=== PATIENT | male | born 1960 | race Caucasian/White ===

== ENCOUNTER 2022-08-10 08:03 | Day surgery (SDC) | payer OTHER, SELFPAY ==
[2022-08-10] VITALS (8 sets, daily range): BP systolic 80–111; BP diastolic 61–78; PULSE 60–85; RESP 16; TEMP 36.5–36.9; O2SAT 94–99; BMI 25.2
[2022-08-10] MEDS: Lactated Ringers 1,000 ML 15 ML IV (08:34)
[2022-08-10 08:55] LABS: Bedside Glucose 262 mg/dL (74-106)
--- NOTE | 2022-08-10 09:21 | PCM.HP.BLA ---
History and Physical Date of Admission: 08/10/22 Intake Vital Signs ? 05/19/2113:06 06/29/2212:48 Height 5 ft 8 in 5 ft 7 in Weight: ? 165 lb 8 oz BMI ? 25.9 BP ? 115/64 Blood Pressure Location ? Rt brachial Position ? Sitting Respiration ? 18 Pulse ? 110 H Pulse Source ? NIBP Temp ? 97.2 F L Temp Source ? Temporal Pulse Oximetry (%) ? 95 Oxygen Delivery Method ? 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 Is patient in pain?: No Allergies No Known Allergies Allergy (Verified 06/29/22 12:48) Medications B-complex with vitamin C (Super B Complex-Vitamin C tablet) 1 tab PO DAILY 05/19/21 [History Confirmed 06/29/22] apple cider vinegar 600 mg capsule mg PO 05/19/21 [History Confirmed 06/29/22] ascorbic acid (vitamin C) 250 mg tablet 250 mg PO DAILY 05/19/21 [History Confirmed 06/29/22] cholecalciferol (vitamin D3) 25 mcg (1,000 unit) capsule 25 mcg PO DAILY 05/19/21 [History Confirmed 05/19/21] garlic 500 mg capsule 500 mg PO DAILY 05/19/21 [History Confirmed 06/29/22] lisinopril 20 mg tablet 20 mg PO DAILY 05/19/21 [History Confirmed 06/29/22] lovastatin 20 mg tablet 20 mg PO DAILY 05/19/21 [History Confirmed 05/19/21] metformin 1,000 mg tablet 1,000 mg PO BID 05/19/21 [History Confirmed 06/29/22] vitamin E 200 unit capsule 200 unit PO DAILY 05/19/21 [History Confirmed 06/29/22] atorvastatin 80 mg tablet 80 mg PO QHS 06/29/22 [History Confirmed 06/29/22] krill oil 500 mg capsule 500 mg PO QDAY 06/29/22 [History Confirmed 06/29/22] pioglitazone 45 mg tablet 45 mg PO DAILY 06/29/22 [History Confirmed 06/29/22] PFSH Medical History?(Updated 06/29/22 @ 12:36 by Dagmar Maxwell) Carotid stenosis Diabetes High cholesterol HTN (hypertension) Surgical History?(Updated 06/29/22 @ 12:39 by Dagmar Maxwell) History of colonoscopy (~2012) History of right-sided carotid endarterectomy Family History?(Updated 06/29/22 @ 12:47 by Dagmar Maxwell) Mother Colon cancerFather Diabetes Hypertension Cancer ?? ? renal Social History? Smoking Status:? Former smoker alcohol intake:? current alcohol intake frequency: a few times a week HPI HPI HPI: Patient is a 62 male here for colonoscopy.? Patient has last colonoscopy 2012 was found have a polyp.? He was recommended to repeat in 5 years but has not been able to have it redone.? Patient denies any abdominal pain or blood in the stool. Exam Const General: cooperative Orientation: alert and oriented x3 HENMT Head: normal to inspection Neck Neck: normal visual inspection and full ROM Chest Chest palpation & inspection: normal inspection of the chest Resp Effort & Inspection: normal respiratory effort Auscultation: clear to auscultation bilaterally Cardio Rate: regular rate Rhythm: regular rhythm GI Inspection: non-distended Palpation: soft and nontender Skin General: no rashes or lesions noted Neuro General: patient alert and patient oriented x3 Extrem General: full ROM Psych Appearance: grossly normal Mental Status: mental status grossly normal Assessment and Plan Assessment and Plan (1) History of colon polyps: ?Status:?Acute ?Plan: Patient has a history of polyps and is due for surveillance colonoscopy.? I explained endoscopy in detail to the patient.? I explained the risks including but not limited to stroke or heart attack with anesthesia, perforation of the GI tract, bleeding, infection.? I explained that any of these could necessitate further emergency surgery.? The patient understands and all questions were answered sufficiently.? The patient wishes to proceed with procedure. Neil Barbour MD Pager: [facility] [address] [place] [address], [address] [place] [address] Office: I have re-examined the patient. There are no clinical changes since date of exam.
--- NOTE | 2022-08-10 09:49 | OP.CCLET_ITS ---
08/10/2022 Marybel Finch Re : Colonoscopy procedure for Edil Navarro Dear Stef This procedure was performed on Wednesday, August 10, 2022. My impressions and recommendations are as follows: Impressions : - The entire examined colon is normal on direct and retroflexion views. - No specimens collected. Recommendations : - Discharge patient to home. - Resume previous diet. - Continue present medications. - Repeat colonoscopy in 10 years for screening purposes. My findings are described in the full procedure note, which is enclosed. If I can be of further assistance, please feel free to contact me at Doctor phone number(s): , Work: . Sincerely, Neil Barbour MD 08/10/2022 9:49:06 AM This report has been signed electronically.
--- NOTE | 2022-08-10 09:49 | OP.COLON_ITS ---
Patient Name: Edil Navarro Procedure Date: 08/10/2022 9:29 AM Date of : 1960 Age: 62 Procedure: Colonoscopy Indications: High risk colon cancer surveillance: Personal history of colonic polyps Providers: Neil Barbour MD Referring MD: Marybel Finch Medicines: Monitored Anesthesia Care Patient Profile: This is a 62 year old male. This is a 62 year old male. Refer to note in patient chart for documentation of history and physical. Last Colonoscopy: several years ago. Complications: No immediate complications. Procedure: Pre-Anesthesia Assessment: - Prior to the procedure, a History and Physical was performed, and patient medications and allergies were reviewed. The patient's tolerance of previous anesthesia was also reviewed. The risks and benefits of the procedure and the sedation options and risks were discussed with the patient. All questions were answered, and informed consent was obtained. Prior Anticoagulants: The patient has taken no previous anticoagulant or antiplatelet agents. After reviewing the risks and benefits, the patient was deemed in satisfactory condition to undergo the procedure. After I obtained informed consent, the scope was passed under direct vision. Throughout the procedure, the patient's blood pressure, pulse, and oxygen saturations were monitored continuously. The pediatric colonoscope was introduced through the anus and advanced to the cecum, identified by appendiceal orifice and ileocecal valve. The colonoscopy was performed without difficulty. The patient tolerated the procedure well. The quality of the bowel preparation was good. Scope In: 9:35:39 AM Scope Withdrawal Time 0 hours 6 minutes 10 seconds Scope Out: 9:45:39 AM Total Procedure Duration Time 0 hours 10 minutes 0 seconds Findings: The entire examined colon appeared normal on direct and retroflexion views. Impression: - The entire examined colon is normal on direct and retroflexion views. - No specimens collected. Recommendation: - Discharge patient to home. - Resume previous diet. - Continue present medications. - Repeat colonoscopy in 10 years for screening purposes. Procedure Code(s): --- Professional --- 00996, Colonoscopy, flexible; diagnostic, including collection of specimen(s) by brushing or washing, when performed (separate procedure) Diagnosis Code(s): --- Professional --- Z86.010, Personal history of colonic polyps CPT copyright 2017 [employer]. All rights reserved. The codes documented in this report are preliminary and upon supervisor liquefaction review may be revised to meet current compliance requirements. Neil Barbour MD 08/10/2022 9:49:06 AM This report has been signed electronically. Number of Addenda: 0 Note Initiated On: 08/10/2022 9:29 AM
== END 2022-08-10 10:42 | disposition home or self-care (01) ==
LOC: EN 08:04 → AC 08:06
PROVIDERS: PCP Nurse Practitioner Primary Care; Referring Provider Nurse Practitioner Primary Care; Visit Provider Surgery
PROC: 0DJD8ZZ Inspection of Lower Intestinal Tract, Via Natural or Artificial Opening Endoscopic (ICD-10-PCS; CPT 45378; principal; 2022-08-10 09:25)
DX: Z12.11 Encounter for screening for malignant neoplasm of colon (principal); E11.9 Type 2 diabetes mellitus without complications; I10 Essential (primary) hypertension; E78.00 Pure hypercholesterolemia, unspecified; Z79.84 Long term (current) use of oral hypoglycemic drugs; Z79.899 Other long term (current) drug therapy; Z86.010 Personal history of colon polyps; Z87.891 Personal history of nicotine dependence
CPT/HCPCS: 45378; 82962; J7120; J2405

== ENCOUNTER 2025-03-25 21:59 | Emergency (ER) | payer OTHER, SELFPAY ==
[2025-03-25 22:00] VITALS: BP 115/65; PULSE 98; RESP 18; TEMP 36.7; O2SAT 100; BMI 25.9
--- NOTE | 2025-03-25 22:30 | EKG12_ITS ---
Test Reason : DYSRHYTHMIA Blood Pressure : */* mmHG Vent. Rate : 84 BPM Atrial Rate : 84 BPM P-R Int : 174 ms QRS Dur : 90 ms QT Int : 364 ms P-R-T Axes : 48 -53 27 degrees QTcB Int : 430 ms Normal sinus rhythm Left anterior fascicular block Anterolateral infarct , age undetermined Abnormal ECG Confirmed by OCTAVIO MCRAE, ARVIN ([id number]), editor house organ SEBASTIAN PHELPS ([id number]) on 03/29/2025 6:49:39 AM Referred By: Pancho Sales Confirmed By: ARVIN CUNNINGHAM MD
--- NOTE | 2025-03-25 22:30 | CT_ITS ---
PROCEDURE: SPINE CERVICAL WITHOUT CONTRAS 03/25/2025 REASON FOR EXAM: FALL TECHNIQUE: Cervical spine CT without contrast. Coronal and Sagittal reconstruction series were provided. One or more dose reduction techniques were used (e.g., Automated exposure control, adjustment of the mA and/or kV according to patient size, use of iterative reconstruction technique COMPARISON: None FINDINGS: Vertebral body heights are within normal limits. Negative for acute fracture or traumatic subluxation. Moderate degenerative changes from C5 through T1. No paraspinal mass. Bilateral carotid artery calcifications. Lung apices are clear. CT/Spine Cervical without Contras IMPRESSION: No acute osseous abnormality. Reading Location: [facility]
--- NOTE | 2025-03-25 22:30 | CT_ITS ---
PROCEDURE: BRAIN/HEAD WITHOUT CONTRAST 03/25/2025 REASON FOR EXAM: FALL TECHNIQUE: Head CT without intravenous contrast. Coronal and Sagittal reconstruction series were provided. One or more dose reduction techniques were used (e.g., Automated exposure control, adjustment of the mA and/or kV according to patient size, use of iterative reconstruction technique. COMPARISON: None FINDINGS: No evidence of acute intracranial hemorrhage, midline shift or mass effect. No definite CT evidence of acute territorial cortical infarction. No hydrocephalus. Mild age-related atrophy. No depressed calvarial fracture. Mild bilateral maxillary mucosal thickening. CT/Brain/Head without Contrast IMPRESSION: No acute intracranial abnormality. Reading Location: [facility]
--- OUTSIDE RECORDS SUMMARY | 2025-03-25 22:40 | XMS RPT_ITS | CCD ---
Author Organization [facility] Care Team Providers Care Special Assemblies Supervisor Name Role Phone JAIMIE COLE Primary Care Physicia n [facility] Jaimie Primary Care Provider [facility] Jaimie Referring Provider [phone] Dr. Neil Barbour Attending Provider Dr. Neil Barbour Other Provider Jaimie Solitario Primary Care Unavailable Jaimie Solitario Referring Unavailable Neil Barbour Attending Unavailable Jaimie Solitario Referring Unavailable Neil Barbour Consulting Unavailable Neil Barbour Attending Unavailable Jaimie Solitario Primary Care Unavailable Jaimie Solitario Referring Unavailable Neil Barbour Attending Unavailable Jaimie Solitario Primary Care Unavailable KASSI LOZA, JAIMIE Crawford Primary Care Unava ilmarisa DUARTE MD, DR HERNANDEZ Attending Unavailab JAIMIE Cotton S Primary Care Unava ilable JAIMIE COLE Attending Unava ilable JAIMIE COLE S Primary Care Unava ilable RADHA FRANCIS DO Attending Unavailable JAIMIE COLE S Primary Care Unava ilable JAIMIE COLE Attending Unava ilable Medications Current Medications Medication Drug Class(es) Dates Sig (Normalized) Sig (Original) apple cider vinegar 600 mg oral capsule (1 source) Start: 05-19-2021 take 600 mg by mouth once daily Apple Cider Vinegar Active 600 MG PO DAILY May 19, 2021 12:00am ascorbic acid 250 mg oral tablet (1 source) Vitamin C Start: 05-19-2021 take 250 mg by mouth once daily Ascorbic Acid (Vitamin C) Active 250 MG PO DAILY May 19, 2021 12:00am atorvastatin 80 mg oral tablet (5 sources) HMG-CoA Reductase Inhibitor Start: 03-11-2025 atorvastatin 80 mg oral tablet Dose : 80 mg = 1 tab(s), Oral, qDay, # 90 tab(s), 3 Refill(s), Pharmacy: [facility], 172.5, cm, 03/11/25 15:20:00 EDT, Height, kg, 03/11/25 15:20:00 EDT, Dosing Weight Start Date: 03/11/25 Status: Ordered Quantity: 90.0 Unit: tab(s) Repeat number: 4 Start: 04-23-2023 atorvastatin 8 0 mg oral tablet Dose : 80 mg = 1 tab(s), Oral, qDay, # 90 tab(s), 3 Refill(s), Pharmacy: [facility], 173, cm, 12/13/22 9:59:00 EST, Height, kg, 12/13/22 9:59:00 EST, Dosing Weight Start Date: 04/23/23 Status: Ordered Quantity: 90.0 Unit: tab(s) Repeat number: 4 Start: 03-08-2022 atorvastatin 8 0 mg oral tablet Dose : 80 mg = 1 tab(s), Oral, qDay, # 90 tab(s), 3 Refill(s), Pharmacy: [facility], 172.5, cm, 03/08/22 8:56:00 EDT, Height Start Date: 03/08/22 Status: Ordered B-Complex With Vitamin C (Super B Complex-Vitamin C) tablet (1 source) Start: 05-19-2021 take 1 tablet by mouth once daily B-Complex With Vitamin C (Super B Complex-Vitamin C) tablet Active 1 TABLET PO DAILY May 19, 2021 12:00am cholecalciferol 0.025 mg oral capsule (1 source) Vitamin D Start: 05-19-2021 take 25 ug by mouth once daily Cholecalciferol (Vitamin D3) Active 25 MCG PO DAILY May 19, 2021 12:00am cider vinegar oral tablets (4 sources) Start: 10-22-2019 cider vinegar oral tablets 0 Refill(s) Start Date: 10/22/19 Status: Ordered Repeat number: 1 Start: 10-22-2019 cider vinegar oral tablets 0 Refill(s) Start Date: 10/22/19 Status: Ordered empagliflozin 25 mg oral tablet (4 sources) Sodium-Glucose Cotransporter 2 Inhibitor Start: 03-11-2025 End: 03-06-2026 Jardiance 25 mg oral tablet Dose : 25 mg = 1 tab(s), Oral, qAM, # 90 tab(s), 3 Refill(s), Pharmacy: [facility], 172.5, cm, 03/11/25 15:20:00 EDT, Height, kg, 03/11/25 15:20:00 EDT, Dosing Weight Start Date: 03/11/25 Stop Date: 03/06/26 Status: Ordered Quantity: 90.0 Unit: tab(s) Repeat number: 4 Start: 12-13-2022 Jardiance 25 m g oral tablet Dose : 12.5 mg = 0.5 tab(s), Oral, qAM, 0 Refill(s) Start Date: 12/13/22 Status: Ordered Repeat number: 1 Start: 08-08-2022 take 1 tablet by [facility] once daily Empagliflozin (Jardiance) 10 mg Tablet Active 10 MG PO DAILY August 08, 2022 12:00am Garlic (5 sources) Non-Standardized Food Allergenic Extract Start: 05-19-2021 take 500 mg by mouth once daily Garlic Active 500 MG PO DAILY May 19, 2021 12:00am Start: 07-02-2019 take 1 capsule by [facility] once daily garlic oral capsule Dose = 1 cap(s), Oral, Daily, 0 Refill(s) Start Date: 07/02/19 Status: Ordered Repeat number: 1 Start: 07-02-2019 take 1 capsule by [facility] once daily garlic oral capsule Dose = 1 cap(s), Oral, Daily, 0 Refill(s) Start Date: 07/02/19 Status: Ordered ibuprofen 800 mg oral tablet (4 sources) Nonsteroidal Anti-inflammatory Drug Start: 07-02-2019 take 1 tablet by mouth every eight hours ibuprofen 800 mg oral tablet TAKE ONE TABLET BY MOUTH EVERY 8 HOURS Start Date: 07/02/19 Status: Ordered Repeat number: 1 krill oil 500 mg oral capsule (1 source) Start: 06-29-2022 take 500 mg by mouth once daily Krill Oil Active 500 MG PO daily June 29, 2022 12:00am lisinopril 20 mg oral tablet (5 sources) Angiotensin Converting Enzyme Inhibitor Start: 03-11-2025 End: 03-06-2026 lisinopril 20 mg oral tablet Dose : 20 mg = 1 tab(s), Oral, qDay, TAKE 1 TABLET BY MOUTH ONCE DAILY, # 90 tab(s), 3 Refill(s), Pharmacy: [facility], 172.5, cm, 03/11/25 15:20:00 EDT, Height, kg, 03/11/25 15:20:00 EDT, Dosing Weight Start Date: 03/11/25 Stop Date: 03/06/26 Status: Ordered Quantity: 90.0 Unit: tab(s) Repeat number: 4 Start: 04-23-2023 End: 04-17-2024 lisinopril 20 mg oral tablet Dose : 20 mg = 1 tab(s), Oral, qDay, TAKE 1 TABLET BY MOUTH ONCE DAILY, # 90 tab(s), 3 Refill(s), Pharmacy: [facility], 173, cm, 12/13/22 9:59:00 EST, Height, kg, 12/13/22 9:59:00 EST, Dosing Weight Start Date: 04/23/23 Stop Date: 04/17/24 Status: Ordered Quantity: 90.0 Unit: tab(s) Repeat number: 4 Start: 05-19-2021 End: 03-03-2023 lisinopril 20 mg oral tablet Dose : 20 mg = 1 tab(s), Oral, qDay, TAKE 1 TABLET BY MOUTH ONCE DAILY, # 90 tab(s), 3 Refill(s), Pharmacy: [facility], 172.5, cm, 03/08/22 8:56:00 EDT, Height, kg, 03/08/22 8:56:00 EDT, Dosing Weight Start Date: 03/08/22 Stop Date: 03/03/23 Status: Ordered lovastatin 40 mg oral tablet (2 sources) HMG-CoA Reductase Inhibitor Start: 06-07-2022 take 1 tablet by mouth once daily lovastatin 40 mg oral tablet TAKE 1 TABLET BY MOUTH ONCE DAILY Start Date: 06/07/22 Status: Ordered Start: 05-19-2021 take 20 mg by mouth once daily Lovastatin Active 20 MG PO DAILY May 19, 2021 12:00am Octavio Red Krill Oil 300mg ora l capsule (4 sources) Start: 07-02-2019 Octavio Red Krill Oil 300mg oral capsule Dose : 300 mg = 1 cap(s), Oral, qDay, 0 Refill(s) Start Date: 07/02/19 Status: Ordered Repeat number: 1 Start: 07-02-2019 Octavio Red Krill Oil 300mg oral capsule Dose : 300 mg = 1 cap(s), Oral, qDay, 0 Refill(s) Start Date: 07/02/19 Status: Ordered metFORMIN hydrochloride 500 mg oral tablet (5 sources) Biguanide Start: 07-13-2024 End: 07-08-2025 metFORMIN 500 mg oral tablet (IR) Dose : 1,000 mg = 2 tab(s), Oral, BID, # 360 tab(s), 3 Refill(s), Pharmacy: [facility], 172.5, cm, 11/21/23 13:43:00 EST, Height, kg, 11/21/23 13:43:00 EST, Dosing Weight Start Date: 07/13/24 Stop Date: 07/08/25 Status: Ordered Quantity: 360.0 Unit: tab(s) Repeat number: 4 Start: 03-08-2022 End: 03-03-2023 metFORMIN 500 mg oral tablet (IR) Dose : 1,000 mg = 2 tab(s), Oral, BID, # 360 tab(s), 3 Refill(s), Pharmacy: [facility], 172.5, cm, 03/08/22 8:56:00 EDT, Height, kg, 03/08/22 8:56:00 EDT, Dosing Weight Start Date: 03/08/22 Stop Date: 03/03/23 Status: Ordered Start: 05-19-2021 take 1000 mg by mout h twice daily Metformin Active 1000 MG PO TWICE A DAY May 19, 2021 12:00am pioglitazone 45 mg oral tablet (5 sources) Peroxisome Proliferator Receptor alpha Agonist, Peroxisome Proliferator Receptor gamma Agonist, Thiazolidinedione Start: 04-23-2023 pioglitazone 45 mg oral tablet Dose : 45 mg = 1 tab(s), Oral, Daily, # 90 tab(s), 3 Refill(s), Pharmacy: [facility], 173, cm, 12/13/22 9:59:00 EST, Height, kg, 12/13/22 9:59:00 EST, Dosing Weight Start Date: 04/23/23 Status: Ordered Quantity: 90.0 Unit: tab(s) Repeat number: 4 Start: 03-08-2022 pioglitazone 4 5 mg oral tablet Dose : 45 mg = 1 tab(s), Oral, Daily, # 90 tab(s), 3 Refill(s), Pharmacy: [facility], 172.5, cm, 03/08/22 8:56:00 EDT, Height, kg, 03/08/22 8:56:00 EDT, Dosing Weight Start Date: 03/08/22 Status: Ordered Vitamin B Complex oral capsule (4 sources) Start: 07-02-2019 take 1 capsule by mouth once daily Vitamin B Complex oral capsule Dose = 1 cap(s), Oral, Daily, 0 Refill(s) Start Date: 07/02/19 Status: Ordered Repeat number: 1 Start: 07-02-2019 take 1 capsule by [facility] once daily Vitamin B Complex oral capsule Dose = 1 cap(s), Oral, Daily, 0 Refill(s) Start Date: 07/02/19 Status: Ordered Vitamin C 500 mg oral tablet (4 sources) Start: 07-02-2019 Vitamin C 500 mg oral tablet Dose : 500 mg = 1 tab(s), Oral, qDay, 0 Refill(s) Start Date: 07/02/19 Status: Ordered Repeat number: 1 Start: 07-02-2019 Vitamin C 500 mg oral tablet Dose : 500 mg = 1 tab(s), Oral, qDay, 0 Refill(s) Start Date: 07/02/19 Status: Ordered Vitamin D2 1000 units oral tablet (4 sources) Start: 07-02-2019 Vitamin D2 100 0 units oral tablet Dose : 1,000 unit(s) = 1 tab(s), Oral, Daily, 0 Refill(s) Start Date: 07/02/19 Status: Ordered Repeat number: 1 Start: 07-02-2019 Vitamin D2 100 0 units oral tablet Dose : 1,000 unit(s) = 1 tab(s), Oral, Daily, 0 Refill(s) Start Date: 07/02/19 Status: Ordered vitamin e 90 mg oral capsule (5 sources) Start: 05-19-2021 take 200 [IU] by mouth once daily Vitamin E Active 200 UNIT PO DAILY May 19, 2021 12:00am Start: 07-02-2019 vitamin E 100 intl units oral capsule Dose : 100 International_Unit = 1 cap(s), Oral, Daily, 0 Refill(s) Start Date: 07/02/19 Status: Ordered Repeat number: 1 Completed/Discontinued Medications Medication Drug Class(es) Dates Sig (Normalized) Sig (Original) 0.25 MG, 0.5 MG Dose 3 ML semaglutide 0.68 MG/ML Pen Injector [Ozempic] (1 source) Start: 03-11-2025 inject 0.5 mg by subcutaneous injection every week Ozempic 2 mg/3 mL (0.25 mg or 0.5 mg dose) subcutaneous solution Dose : 0.25 mg =, Subcutaneous, qWeek, rotate injection sites, # 1 EA, 3 Refill(s), Pharmacy: [facility], 172.5, cm, 03/11/25 15:20:00 EDT, Height, kg, 03/11/25 15:20:00 EDT, Dosing Weight Start Date: 03/11/25 Status: Ordered Quantity: 1.0 Unit: EA Repeat number: 4 glipiZIDE 10 mg oral tablet (1 source) Sulfonylurea Start: 05-19-2021 End: 06-29-2022 take 10 mg by mouth once daily Glipizide Discontinued 10 MG PO DAILY May 19, 2021 12:00am June 29, 2022 12:50pm [facility] Medication (2 sources) Start: 11-21-2023 [facility] Medication insulin 10units q HS, [facility], 0 Refill(s), 71 Start Date: 11/21/23 Status: Ordered Repeat number: 1 [place]-3 Fatty Acids (Fish Oil Concentrate) 1,000 mg capsule (1 source) Start: 05-19-2021 End: 06-29-2022 take 1 capsule by mouth once daily [place]-3 Fatty Acids (Fish Oil Concentrate) 1,000 mg capsule Discontinued 1000 MG PO DAILY May 19, 2021 12:00am June 29, 2022 12:49pm Problems Problem Classification Problem Date Documented Date Episodic/Chronic Administrative/social admission (1 source) Homeless 03-11-2025 Episodic Conditions associated with dizziness or vertigo (3 sources) Dizziness and giddiness; Translations: [Dizziness and giddiness] Onset: 02-18-2025 Episodic Diabetes mellitus with complications (4 sources) Hyperglycemia due to type 2 diabetes mellitus; Translations: [Type 2 diabetes mellitus with hyperglycemia] Onset: 03-11-2025 Chronic Diabetes mellitus without complication (5 sources) Diabetes mellitus; Translations: [Type 2 diabetes mellitus without complications] Onset: 02-18-2025 06-07-2022 Chronic Disorders of lipid metabolism (5 sources) Hyperlipidemia; Translations: [Hypercholesterolemia ] 06-02-2020 Chronic Essential hypertension (1 source) Hypertensive disorder; Translations: [Essential (primary) hypertension] Chronic Occlusion or stenosis of precerebral arteries (1 source) Carotid artery stenosis; Translations: [Occlusion and stenosis of unspecified carotid artery] Chronic Other aftercare (1 source) Other termination clerk (current) drug therapy; Translations: [Other custodial (current) drug therapy] Onset: 02-18-2025 Episodic Other aftercare (1 source) oil heaterman (current) use of oral hypoglycemic drugs; Translations: [oil heaterman (current) use of oral hypoglycemic drugs] Onset: 02-18-2025 Episodic Other aftercare (1 source) Encounter for therapeutic drug level monitoring; Translations: [Encounter for therapeutic drug level monitoring] Onset: 02-18-2025 Episodic Other and unspecified benign neoplasm (1 source) History of polyp of colon; Translations: [Personal history of colonic polyps] Episodic Other and unspecified benign neoplasm (1 source) Personal history of colonic polyps; Translations: [Personal history of colonic polyps] Episodic Other connective tissue disease (1 source) Recurrent falls ; Translations: [Repeated falls] Onset: 02-18-2025 Episodic Other connective tissue disease (1 source) Musculoskeletal test abnormal; Translations: [Other symptoms and signs involving the musculoskeletal system] Onset: 02-18-2025 Episodic Other connective tissue disease (2 sources) Repeated falls; Translations: [Repeated falls] Onset: 02-18-2025 Episodic Other connective tissue disease (1 source) Other symptoms and signs involving the musculoskeletal system; Translations: [Other symptoms and signs involving the musculoskeletal system] Onset: 02-18-2025 Episodic Other nervous system disorders (1 source) Ulnar neuropathy; Translations: [Lesion of ulnar nerve, unspecified upper limb] Chronic Other nervous system disorders (1 source) Abnormal gait; Translations: [Other abnormalities of gait and mobility] Onset: 02-18-2025 Episodic Other nervous system disorders (2 sources) Other abnormalities of gait and mobility; Translations: [Other abnormalities of gait and mobility] Onset: 02-18-2025 Episodic Other screening for suspected conditions (not mental disorders or infectious disease) (2 sources) Liver function tests abnormal; Translations: [Other specified abnormal findings of blood chemistry] Onset: 08-15-2022 Episodic Screening and history of mental health and substance abuse codes (1 source) Personal history of nicotine dependence; Translations: [Personal history of nicotine dependence] Onset: 02-18-2025 Episodic Superficial injury; contusion (2 sources) Abrasion of upper limb 11-21-2023 Episodic Unclassified (3 sources) Patient encounter status 12-13-2022 Unclassified (1 source) Homelessness unspecified; Translations: [Homelessness unspecified] Onset: 02-18-2025 Results Test Name Value Interpretation Reference Range [facility] 03-12-2025 U Creatinine 34.3 mg/dL Low 40.0-278.0 [facility] Comment on above: Performed By: #### M ALBR #### [address] [address] U Microalb 24.0 mg/L Normal [facility] Comment on above: Performed By: #### M ALBR #### [address] [address] U Ratio Alb/Cre 70 mg/G High 0-30 [facility] Comment on above: Performed By: #### M ALBR #### [id number] [place], [place] [address] LABORATORYOrdered By: Jennifer Winter on 03-11-2025 Albumin DL <= 20 mg/L (U) [Mass/Vol] 24.0 mg/L Invalid Interpretation Code AO ADM SS Albumin/Creatinine DL <= 20 mg/L (U) [Mass ratio] 70 mg/G High 0 - 30 mg/G AO Chemistry S Creatinine (U) [Mass/Vol] 34.3 mg/dL Low 40.0 - 278.0 mg/dL AO ADM SS .Auto Diffon 02-18-2025 Basophil, Absolute 0.1 10 3/mcL Normal 0.0-0.3 [facility] Comment on above: Performed By: #### A DIFF, MDW, ANEU, CMP, CBC, GFR #### [address] [address] Basophils/100 WBC (Bld) 0.9 % Normal 0.0-2.5 [facility] Comment on above: Performed By: #### A DIFF, MDW, ANEU, CMP, CBC, GFR #### [address] [address] Eosinophil, Absolute 0.2 10 3/mcL Normal 0.0-0.7 [facility] Comment on above: Performed By: #### A DIFF, MDW, ANEU, CMP, CBC, GFR #### [address] [address] Eosinophils/100 WBC (Bld) 2.1 % Normal 0.0-6.0 [facility] Comment on above: Performed By: #### A DIFF, MDW, ANEU, CMP, CBC, GFR #### [address] [address] Lymphocyte, Absolute 2.3 10 3/mcL Normal 0.9-4.3 [facility] Comment on above: Performed By: #### A DIFF, MDW, ANEU, CMP, CBC, GFR #### [address] [address] Lymphocytes/100 WBC (Bld) 23.3 % Normal 20.0-40.0 [facility] Comment on above: Performed By: #### A DIFF, MDW, ANEU, CMP, CBC, GFR #### [address] [address] Monocyte, Absolute 1.1 10 3/mcL Normal 0.1-1.4 [facility] Comment on above: Performed By: #### A DIFF, MDW, ANEU, CMP, CBC, GFR #### [address] [address] Monocytes/100 WBC (Bld) 10.8 % Normal 2.0-13.0 [facility] Comment on above: Performed By: #### A DIFF, MDW, ANEU, CMP, CBC, GFR #### [address] [address] Neutrophils/100 WBC (Bld) 62.9 % Normal 50.0-75.0 [facility] Comment on above: Performed By: #### A DIFF, MDW, ANEU, CMP, CBC, GFR #### [address] [address] .GFRon 02-18-2025 Estimated Glomerular Filtration Rate 109 ml/min/1.73sqm Normal [facility] Comment on above: Result Comment: Stages of Chronic Kidney Disease (CKD) Stage Description eGFR(ml/min/1.73 sq.m.) CKD 1 Normal kidney function or >=90 normal kindney function with possible kidney damage (ex. Proteinuria) CKD 2 Kidney damage with mild loss 60-89 of kidney function CKD 3a Mild to moderate loss of kidney 45-59 function CKD 3b Moderate to severe loss of 30-44 of kindey function CKD 4 Severe loss of kidney function 15-29 CKD 5 Kidney failure <15 Note: (go live 2024) the eGFR calculation was updated to the 2020 CKD-EPI creatinine equation without a race factor to calculate the eGFR results. Performed By: #### A DIFF, MDW, ANEU, CMP, CBC, GFR #### [address] [address] .MDWon 02-18-2025 Monocyte Distribution Width 18.64 Normal 0.00-20.00 [facility] Comment on above: Result Comment: For ED adult patients suspected of sepsis, MDW<=20.0 does not rule out sepsis or risk of sepsis Performed By: #### A DIFFNIKHIL, ANEU, CMP, CBC, GFR #### [address] [address] .NEUABSon 02-18-2025 Neutrophil, Absolute 6.2 10 3/mcL Normal 2.3-8.1 [facility] Comment on above: Performed By: #### A NIKHIL GUTIERREZ, ANEU, CMP, CBC, GFR #### [address] [place] [address] CBCon 02-18-2025 Erythrocyte distribution width (RBC) [Ratio] 12.9 % Normal 11.5-15.5 [facility] Comment on above: Performed By: #### A NIKHIL GUTIERREZ, ANEU, CMP, CBC, GFR #### [address] [place] [address] Hematocrit (Bld) [Volume fraction] 40.7 % Normal 40.0-52.0 [facility] Comment on above: Performed By: #### A NIKHIL GUTIERREZ, ANEU, CMP, CBC, GFR #### [address] [place] [address] Hgb 14.1 G/dL Normal 13.0-17.5 [facility] Comment on above: Performed By: #### A NIKHIL GUTIERREZ, ANEU, CMP, CBC, GFR #### [address] [place] [address] MCH (RBC) [Entitic mass] 30.7 pg Normal 27.0-33.0 [facility] Comment on above: Performed By: #### A NIKHIL GUTIERREZ, ANEU, CMP, CBC, GFR #### [place] [address] MCHC 34.7 G/dL Normal 32.0-36.0 [facility] Comment on above: Performed By: #### A NIKHIL GUTIERREZ, ANEU, CMP, CBC, GFR #### [place] [address] MCV (RBC) [Entitic vol] 88.5 fL Normal 81.0-100.0 [facility] Comment on above: Performed By: #### A NIKHIL GUTIERREZ, ANEU, CMP, CBC, GFR #### [address] [address] Platelet 220 10 3/mcL Normal 150-450 [facility] Comment on above: Performed By: #### A NIKHIL GUTIERREZ, ANEU, CMP, CBC, GFR #### [address] [address] Platelet mean volume (Bld) [Entitic vol] 8.9 fL Normal 6.4-10.5 [facility] Comment on above: Performed By: #### A NIKHIL GUTIERREZ, ANEU, CMP, CBC, GFR #### [address] [address] RBC 4.60 10 6/mcL Normal 4.50-6.00 [facility] Comment on above: Performed By: #### A NIKHIL GUTIERREZ, ANEU, CMP, CBC, GFR #### [address] [address] WBC 9.9 10 3/mcL Normal 4.5-10.8 [facility] Comment on above: Performed By: #### A NIKHIL GUTIERREZ, ANEU, CMP, CBC, GFR #### [address] [address] CMPon 02-18-2025 ALT [Catalytic activity/Vol] 17 U/L Normal 16-63 [facility] Comment on above: Performed By: #### A NIKHIL GUTIERREZ, ANEU, CMP, CBC, GFR #### [address] [address] Albumin Level 3.6 G/dL Normal 3.4-4.8 [facility] Comment on above: Performed By: #### A NIKHIL GUTIERREZ, ANEU, CMP, CBC, GFR #### [address] [address] Albumin/Globulin [Mass ratio] 0.9 {ratio} Low 1.1-2.5 [facility] Comment on above: Performed By: #### A NIKHIL GUTIERREZ, ANEU, CMP, CBC, GFR #### [address] [address] ALP [Catalytic activity/Vol] 111 U/L Normal 40-135 [facility] Comment on above: Performed By: #### A NIKHIL GUTIERREZ, ANEU, CMP, CBC, GFR #### [address] [address] AST [Catalytic activity/Vol] 13 U/L Normal 10-40 [facility] Comment on above: Performed By: #### A NIKHIL GUTIERREZ, ANEU, CMP, CBC, GFR #### [address] [address] Bili Total 0.4 mg/dL Normal 0.2-1.0 [facility] Comment on above: Result Comment: Use of this assay is not recommended for patients undergoing treatment with eltrombopag due to the potential for falsely elevated results. Performed By: #### A NIKHIL GUTIERREZ, GIUSEPPE, CMP, CBC, GFR #### [address] [address] BUN/Creatinine Ratio 23 ratio Normal 7-27 [facility] Comment on above: Performed By: #### A NIKHIL GUTIERREZ, GIUSEPPE, CMP, CBC, GFR #### [address] [address] Calcium [Mass/Vol] 9.2 mg/dL Normal 8.4-10.2 [facility] Comment on above: Performed By: #### A NIKHIL GUTIERREZ, ANEU, CMP, CBC, GFR #### [address] [address] Chloride [Moles/Vol] 98 mmol/L Normal 98-107 [facility] Comment on above: Performed By: #### A NIKHIL GUTIERREZ, GIUSEPPE, CMP, CBC, GFR #### [address] [address] CO2 [Moles/Vol] 28 mmol/L Normal 23-31 [facility] Comment on above: Performed By: #### A NIKHIL GUTIERREZ, ANEU, CMP, CBC, GFR #### [address] [address] Creatinine [Mass/Vol] 0.60 mg/dL Low 0.67-1.17 [facility] Comment on above: Performed By: #### A NIKHIL GUTIERREZ, ANEU, CMP, CBC, GFR #### [address] [address] Electrolyte Balance 7.0 mEq/L Normal 4.0-15.0 [facility] Comment on above: Performed By: #### A NIKHIL GUTIERREZ, ANEU, CMP, CBC, GFR #### [address] [address] Globulin 3.8 G/dL Normal 2.7-4.4 [facility] Comment on above: Performed By: #### A NIKHIL GUTIERREZ, ANEU, CMP, CBC, GFR #### [address] [address] Glucose [Mass/Vol] 267 mg/dL High 80-115 [facility] Comment on above: Performed By: #### A NIKHIL GUTIERREZ, ANEU, CMP, CBC, GFR #### [address] [address] Potassium [Moles/Vol] 4.1 mmol/L Normal 3.5-5.1 [facility] Comment on above: Performed By: #### A NIKHIL GUTIERREZ, ANEU, CMP, CBC, GFR #### [address] [address] Sodium [Moles/Vol] 133 mmol/L Low 136-145 [facility] Comment on above: Performed By: #### A NIKHIL GUTIERREZ, ANEU, CMP, CBC, GFR #### [address] [address] Total Protein 7.4 G/dL Normal 6.4-8.2 [facility] Comment on above: Performed By: #### A NIKHIL GUTIERREZ, ANEU, CMP, CBC, GFR #### [address] [address] Urea nitrogen [Mass/Vol] 14 mg/dL Normal 7-18 [facility] Comment on above: Performed By: #### A MD MATTW, ANEU, CMP, CBC, GFR #### [id number] [place], [place] [address] CT HEAD OR BRAIN W/O CONTRAS Ton 02-18-2025 CT HEAD OR BRAIN W/O CONTRAST ORIGINAL EXAMINATION: CT OF THE HEAD WITHOUT CONTRAST 02/18/2025 5:07 am TECHNIQUE: CT of the head was performed without the administration of intravenous contrast. Automated exposure control, iterative reconstruction, and/or weight based adjustment of the mA/kV was utilized to reduce the radiation dose to as low as reasonably achievable. COMPARISON: None. HISTORY: ORDERING SYSTEM PROVIDED HISTORY: Reason for Exam: multiple falls, dizziness, dropping things FINDINGS: BRAIN/VENTRICLES: There is no acute intracranial hemorrhage, mass effect or midline shift. No abnormal extra-axial fluid collection. The riggins-white differentiation is maintained without evidence of an acute infarct. There is no evidence of hydrocephalus. ORBITS: The visualized portion of the orbits demonstrate no acute abnormality. SINUSES: There is mucosal thickening in the left maxillary sinus. Other sinuses are unremarkable. SOFT TISSUES/SKULL: No acute abnormality of the visualized skull or soft tissues. IMPRESSION: No acute intracranial abnormality. Interpreted by: Sarah Alfonso MD Preliminary Report By: Sarah Alfonso MD Electronically signed By Sarah Alfonso MD Dictated Date: 02/18/2025 5:12:50 AM Prelim Date: 02/18/2025 5:14:35 AM Sign Date: 02/18/2025 5:14:35 AM Ordering Provider: RADHA Sherman [facility] LABORATORYOrdered By: Ana Galvan on 02-18-2025 Appearance (U) Clear (02/18/25 5:38 AM) Normal Clear AO Auto Urine SS Bilirubin Ql (U) Negative (02/18/25 5:38 AM) Normal Negative AO Auto Urine SS Color (U) Yellow (02/18/25 5:38 AM) Normal AO Auto Urine SS Glucose Test strip (U) [Mass/Vol] 500 mg/dL Invalid Interpretation Code Negative AO Auto Urine SS Hemoglobin Auto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 surveillance: Personal history of colonic polyps Providers: Niel Barbour MD Referring MD: Jaimie Solitario Medicines: Monitored Anesthesia Care Patient Profile: This is a 62 year old male. This is a 62 year old male. Refer to note in patient chart for documentation of history and physical. Last Colonoscopy: several years ago. Complications: No immediate complications. Procedure: Pre-Anesthesia Assessment: - Prior to the procedure, a History and Physical was performed, and patient medications and allergies were reviewed. The patient's tolerance of previous anesthesia was also reviewed. The risks and benefits of the procedure and the sedation options and risks were discussed with the patient. All questions were answered, and informed consent was obtained. Prior Anticoagulants: The patient has taken no previous anticoagulant or antiplatelet agents. After reviewing the risks and benefits, the patient was deemed in satisfactory condition to undergo the procedure. After I obtained informed consent, the scope was passed under direct vision. Throughout the procedure, the patient's blood pressure, pulse, and oxygen saturations were monitored continuously. The pediatric colonoscope was introduced through the anus and advanced to the cecum, identified by appendiceal orifice and ileocecal valve. The colonoscopy was performed without difficulty. The patient tolerated the procedure well. The quality of the bowel preparation was good. Scope In: 9:35:39 AM Scope Withdrawal Time 0 hours 6 minutes 10 seconds Scope Out: 9:45:39 AM Total Procedure Duration Time 0 hours 10 minutes 0 seconds Findings: The entire examined colon appeared normal on direct and retroflexion views. Impression: - The entire examined colon is normal on direct and retroflexion views. - No specimens collected. Recommendation: - Discharge patient to home. - Resume previous diet. - Continue present medications. - Repeat colonoscopy in 10 years for screening purposes. Procedure Code(s): --- Professional --- 72021, Colonoscopy, flexible; diagnostic, including collection of specimen(s) by brushing or washing, when performed (separate procedure) Diagnosis Code(s): --- Professional --- Z86.010, Personal history of colonic polyps CPT copyright 2017 [employer] [place] [employer]. All rights reserved. The codes documented in this report are preliminary and upon chemistry teacher review may be revised to meet current compliance requirements. Neil Barbour MD 08/10/2022 9:49:06 AM This report has been signed electronically. Number of Addenda: 0 Note Initiated On: 08/10/2022 9:29 AM 08/10/22948 Date Neil Barbour MD Cosigner Signature: Date (if indicated) CC: HOSPITAL MORTICIANRosi Solitario; Dr. Neil Barbour MD Date Dictated: 08/10/22928 Date Transcribed: Rn Bsn: TIARA Signed Normal [facility] Glucose Glucometer (BldC) [M ass/Vol]on 08-10-2022 Glucose [Mass/Vol] 262 mg/dL 74-106 [facility] Work Phone: Comment on above: MANAGEMENT OF PATIEN T CARE PER NURSING PROTOCOL Surgery Visit Reporton 06-29 Surgery Visit Report [facility] [address] [place], [place] [address] OFFICE VISIT Date of Service: 06/29/22 MR#: [id number] Acct: [id number] Name: TARAH MCALLISTER Rep #: [id number] : 1960 Provider: Dr. Neil wheat MD Age/Sex: 62/M Location: [facility] Status: Signed Intake Vital Signs 05/19/21 13:06 06/29/22 12:48 Height 5 ft 8 in 5 ft 7 in Weight: 165 lb 8 oz BMI 25.9 BP 115/64 Blood Pressure Location Rt brachial Position Sitting Respiration 18 Pulse 110 H Pulse Source NIBP Temp 97.2 F L Temp Source Temporal Pulse Oximetry (%) 95 Oxygen Delivery Method room air Intake Visit Reasons: COLONOSCOPY Chief Complaint: c-scope, hx polyps Front Desk Administrator Required: No Is patient in pain?: No Allergies No Known Allergies Allergy (Verified 06/29/22 12:48) Medications B-complex with vitamin C (Super B Complex-Vitamin C tablet) 1 tab PO DAILY 05/19/21 [History Confirmed 06/29/22] apple cider vinegar 600 mg capsule mg PO 05/19/21 [History Confirmed 06/29/22] ascorbic acid (vitamin C) 250 mg tablet 250 mg PO DAILY 05/19/21 [History Confirmed 06/29/22] cholecalciferol (vitamin D3) 25 mcg (1,000 unit) capsule 25 mcg PO DAILY 05/19/21 [History Confirmed 05/19/21] garlic 500 mg capsule 500 mg PO DAILY 05/19/21 [History Confirmed 06/29/22] lisinopril 20 mg tablet 20 mg PO DAILY 05/19/21 [History Confirmed 06/29/22] lovastatin 20 mg tablet 20 mg PO DAILY 05/19/21 [History Confirmed 05/19/21] metformin 1,000 mg tablet 1,000 mg PO BID 05/19/21 [History Confirmed 06/29/22] vitamin E 200 unit capsule 200 unit PO DAILY 05/19/21 [History Confirmed 06/29/22] atorvastatin 80 mg tablet 80 mg PO QHS 06/29/22 [History Confirmed 06/29/22] krill oil 500 mg capsule 500 mg PO QDAY 06/29/22 [History Confirmed 06/29/22] pioglitazone 45 mg tablet 45 mg PO DAILY 06/29/22 [History Confirmed 06/29/22] [facility] Medical History (Updated 06/29/22 @ 12:36 by Dagmar Maxwell) Carotid stenosis Diabetes High cholesterol HTN (hypertension) Surgical History (Updated 06/29/22 @ 12:39 by Dagmar Maxwell) History of colonoscopy ( 2012) History of right-sided carotid endarterectomy Family History (Updated 06/29/22 @ 12:47 by Dagmar Maxwell) Mother Colon cancer Father Diabetes Hypertension Cancer renal Social History Smoking Status: Former smoker alcohol intake: current alcohol intake frequency: a few times a week HPI HPI HPI: Patient is a 62 male here for colonoscopy. Patient has last colonoscopy 2012 was found have a polyp. He was recommended to repeat in 5 years but has not been able to have it redone. Patient denies any abdominal pain or blood in the stool. Exam Const General: cooperative Orientation: alert and oriented x3 HENMT Head: normal to inspection Neck Neck: normal visual inspection and full ROM Chest Chest palpation inspection: normal inspection of the chest Resp Effort Inspection: normal respiratory effort Auscultation: clear to auscultation bilaterally Cardio Rate: regular rate Rhythm: regular rhythm GI Inspection: non-distended Palpation: soft and nontender Skin General: no rashes or lesions noted Neuro General: patient alert and patient oriented x3 Extrem General: full ROM Psych Appearance: grossly normal Mental Status: mental status grossly normal Assessment and Plan Assessment and Plan (1) History of colon polyps: Status: Acute Plan: Patient has a history of polyps and is due for surveillance colonoscopy. I explained endoscopy in detail to the patient. I explained the risks including but not limited to stroke or heart attack with anesthesia, perforation of the GI tract, bleeding, infection. I explained that any of these could necessitate further emergency surgery. The patient understands and all questions were answered sufficiently. The patient wishes to proceed with procedure. Neil Barbour MD Pager: [facility] [address] [place] [address], [address] [place] [address] Office: Orders: Orders Colonoscopy Today Z86.010 - Personal history of colonic polyps Coding Level of Care Code Off vis,new,level 3 Diagnoses History of colon polyps Z86.010 06/29/22 1509 Date [facility] MD [facility] Signature: Date (if applicable) CC: HOSPITAL MORTICIAN-C Jaimie Solitario [facility] LABORATORYOrdered By: Angie morales on 01-19-2022 Glucose [Mass/Vol] 405 mg/dL Invalid Interpretation Code 70 - 110 mg/dL [facility] HbA1c (Bld) [Mass fraction] 10.5 % [facility] Performing Location [facility] LABORATORYOrdered By: Neville Castro on 08-25-2021 HbA1c (Bld) [Mass fraction] 9.5 % [facility] Performed By Marisela Waters PharmD [facility] Performing Location [facility] Clinical Summary TARAH MCALLISTER :1960 Visit Date:04/14/2021 Ambulatory Visit Instructions Your Diagnosis Left carotid stenosis History of left-sided carotid endarterectomy. Your Care Team Attending Physician - RESHMA MCRAE, DRE Primary Care Physician - NO FAMILY PHYSICIAN, 837 Procedures Performed Carotid Endarterectomy. (01/06/2021) Discharge Vitals Systolic Blood Pressure: 129 mmHg (04/14/21 08:41:00) Diastolic Blood Pressure: 82 mmHg (04/14/21 08:41:00) SpO2: 95 % (04/14/21 08:41:00) Peripheral Pulse Rate: 91 bpm (04/14/21 08:41:00) Mean Arterial Pressure: 98 mmHg (04/14/21 08:41:00) BP Site2: Left arm (04/14/21 08:41:00) Height/Length Measured: 173 cm (04/14/21 08:41:00) Weight Measured: 82 kg (04/14/21 08:41:00) Body Mass Index Measured: 27.4 kg/m2 (04/14/21 08:41:00) Weight Measured - lbs2: 180 lb (04/14/21 08:41:00) Height/Length Measured - in2: 68 in (04/14/21 08:41:00) Body Mass Index Measured English2: 27.37 kg/m2 (04/14/21 08:41:00) BSA: 1.98 m2 (04/14/21 08:41:00) Ht/Wt Measurement Refused by Patient?2: No (04/14/21 08:41:00) What to do next Instructions From Your Doctor You appear to be doing well from your carotid surgery or carotid revascularization procedure relative to the vascular portion. We do need to have a repeat carotid ultrasound. Previous record indicates this was ordered but may have slipped through the cracks so to speak. You will need to get this test. We will reorder the test. This is a repeat carotid ultrasound typically done 1 to 2 months after carotid surgery. Additionally you have numbness in the fourth and fifth digits left hand. This could be due to some pressure on the ulnar nerve at the elbow that may have occurred during surgery. I do not think is related to the actual surgery relative to brain circulation. I would like to have this tested. He described pain with initial chewing or biting when eating. I would like to have you see an ear nose and throat doctor in this regard to see if there is anything can be done. We will give you referrals. We will order the carotid test. I will see you back in 1 month. If you would like you can make a telehealth visit for that follow-up visit in about a month. Scheduled Follow-Up Appointments Appointment Type Reason for visit Day With Date Time Where [facility] Follow Up 3 M F/UP FOR NECK/CHEEK PAIN Saturday IRIS DICKINSON MD October 23, 2021 02:40 pm EDT ENT Medications What How Much When Instructions Changed Non-Formulary Med (apple cider vineagar) Oral Changed Non-Formulary Med (Herbal Supplement) Changed Non-Formulary Med (Krill oil) Oral Changed Non-Formulary Med (METFORMIN 500MG TAB) Changed Non-Formulary Med (vitamin B) Oral Changed lisinopril (lisinopril 10 mg oral tablet) ORAL Changed lisinopril (Zestril 20 mg oral tablet) 1 Tabs Oral DAILY Unchanged ascorbic acid (Vitamin C) Oral DAILY Unchanged aspirin (aspirin 81 mg oral delayed release tablet) 1 Tabs Oral DAILY WITH BREAKFAST Unchanged atorvastatin (Lipitor 40 mg oral tablet) 2 Tabs Oral AT BEDTIME Unchanged ergocalciferol (Vitamin D) Oral DAILY Unchanged glipiZIDE (Glucotrol 10 mg oral tablet) 1 Tabs Oral DAILY Unchanged lovastatin (lovastatin 40 mg oral tablet) Unchanged metFORMIN (Glucophage 500 mg oral tablet) 2 Tabs Oral TWICE A DAY WITH MEALS Unchanged pioglitazone (Actos 30 mg oral tablet) 1.5 Tabs Oral DAILY Unchanged vitamin E Oral DAILY What How Much When Why Comments Stop Taking acetaminophen-oxycodo ne (acetaminophen-oxycod one 325 mg-5 mg oral tablet = Percocet) 1 Tabs Oral EVERY SIX HOURS as needed for Moderate to Severe Pain as needed for postoperative pain Stop Taking amLODIPine (Norvasc 2.5 mg oral tablet) 1 Tabs Oral DAILY Stop Taking mupirocin topical (mupirocin 2% topical ointment = bactroban) 1 Application Topical THREE TIMES A DAY Encounter for surgical aftercare following surgery of circulatory system Duration: 5 Days apply a thin film Allergies No Known Allergies Problems Ongoing - Any problem that you are currently receiving treatment for. Head pain History of left-sided carotid endarterectomy. Hyperlipidemia Hypertensive disorder Left carotid stenosis Type 2 diabetes mellitus Common Emergency Awareness Tips IS IT A STROKE? Act FAST and Check for these signs: FACE Does the face look uneven? ARM Does one arm drift down? SPEECH Does their speech sound strange? TIME Call at any sign of stroke Heart Attack Signs Chest discomfort: Most heart attacks involve discomfort in the center of the chest and lasts more than a few minutes, or goes away and comes back. It can feel like uncomfortable pressure, squeezing, fullness or pain. Discomfort in upper body: Symptoms can include pain or discomfort in one or both arms, back, neck, jaw or stomach. Shortness of breath: With or without discomfort. Other signs: Breaking out in a cold sweat, clarence (more content not included)... Normal [facility] Phone Msgon 08-08-2021 Phone Msg - From: DRE JUSTICE MD To: ALEC FARNSWORTH; Etelvina Ferrer; Sent: 08/07/2021 11:32:17 EDT This patient never followed up with his postop carotid duplex scan. You can see my note from March. The patient is likely due now for a 6-month follow-up carotid duplex scan now not sure that we have him schedule. Would you please check with the patient and remind him he needs to get this carotid ultrasound and then ordered for me. From: ALEC FARNSWORTH To: Etelvina Ferrer; DRE JUSTICE MD; Sent: 08/08/2021 12:03:08 EDT Subject: RE: LV for him to call back. I have the order printed to mail to him. Will pass along to Etelvina. Order mailed to Tarah, along with note to please schedule carotid duplex and call for follow up office appointment Normal [facility] Phone Msgon 08-07-2021 Phone Msg - From: DRE JUSTICE MD To: ALEC FARNSWORTH; Sent: 08/07/2021 11:30:10 EDT In regard to this patient although she might find this note from the ENT doctor interesting Assessment/Plan 1. Pain in salivary gland region K11.8 He presents with a classic description of first bite syndrome. This is a rare but recognized sequelae of carotid surgery. It is also known to occur with surgery of the parotid gland. I have explained the proposed pathophysiology of this is an imbalance between the sympathetic compare with sympathetic signals to the gland and that with the initiation of eating there is a surge of parasympathetic discharge that is not balanced by sympathetic tone. Most of the literature supports that this improves over the course of several months. I discussed there has been some evidence that botulinum toxin injection to the parotid gland does provide relief in some patients. At this point he is not particularly interested in injections now that we have clarified what it is he is experiencing. He notes that his numbness around the incision continues to improve and would like to give this some time before considering injection. I will see him back in about 3 months to reevaluate, sooner if he notices any worsening. 2. History of left-sided carotid endarterectomy. Z98.890 Normal [facility] LABORATORYOrdered By: Suze Rivera on 08-04-2021 Glucose [Mass/Vol] 290 mg/dL Invalid Interpretation Code 70 - 110 mg/dL [facility] Phone Msgon 07-10-2021 Phone Msg - From: ALOK MCRAE, FREEDOM To: DRE JUSTICE MD; Sent: 06/23/2021 17:29:29 EDT Subject: follow up on referral Helrobel, happy Saturday! I saw Mr. Mcallister. 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 I offered him Botox but some of his other neuropathies are improving and he wants to just watch this. 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 I suspect his diabetes is a strong contributor to this. I was going to recommend for a primary to repeat MRI versus neurology referral but it does not appear he has a primary. Let me know if you like me to proceed with ordering anything. Thanks for the referral [place] From: DRE JUSTICE MD To: ALEC FARNSWORTH; Sent: 07/10/2021 08:43:33 EDT Subject: RE: follow up on referral Interesting may need to look into this. We may need to order the MRI etc. Review with me sometime this week Normal [facility] AMB ENT Physician Progress N oteon 07-06-2021 AMB ENT Physician Progress Note Chief Complaint Patient presents for RT side neck/cheek pain after recent vascular surgery. History of Present Illness Who presents today as a new patient to our practice for initial consultation for cheek and jaw pain after carotid endarterectomy. This was done back on January 032020, although review of records shows date of surgery was actually January 06, 2021, date of admission was January 03. About 2 weeks after surgery he began noticing significant pain with the first bite of any given meal. Would then subside. If there is an time interval of about half an hour between any given bite and the next he will have it on his next first bite. He is also noted some hypesthesia in the left ulnar nerve distribution as well as some changes in his left leg with decreased ability to dorsiflex his toes. In regards to the first bite this has been stable to slightly improving with time. He also notes that his numbness is improving in the area of the left angle of mandible and neck region. He also reports that his bilateral vision became somewhat blurry after he received IV contrast for a CT scan about 2 weeks ago. He does not recall having had any MRIs ever, although review of records shows he had an MRI of the brain done on 01/05/2021 before surgery which showed no evidence of intracranial abnormality or infarct. He does endorse short-term memory loss. He also describes some neuropathic pains associated with his diabetes. Review of Systems General: Negative Psychiatric: Memory Loss Skin: Negative Head: Negative Eyes: Blurry vision Last Eye Exam: Not reviewed Ears: Negative Nose: Negative Age of First Menses: Not reviewed Age of Menopause(last menses): Not reviewed Mouth/Throat: Negative Neck: Negative Breasts: Negative Cardiovascular: Negative Respiratory: Negative Gastrointestinal: Negative Gynecologic: Negative Urinary: Negative Vascular: Negative Musculoskeletal: Negative Neurologic: Negative Hematologic: Negative Endocrine: Negative Physical Exam Vitals & Measurements Systolic Blood Pressure: 124 mmHg (06/23/21 15:20:00) Diastolic Blood Pressure: 81 mmHg (06/23/21 15:20:00) Mean Arterial Pressure: 95 mmHg (06/23/21 15:20:00) BP Site2: Left arm (06/23/21 15:20:00) Height/Length Measured: 170 cm (06/23/21 15:20:00) Weight Measured: 78 kg (06/23/21) Body Mass Index Measured: 26.99 kg/m2 (06/23/2120:) Weight Measured - lbs2: 171 lb (06/23/21) Height/Length Measured - in2: 67 in (06/23/2120:) Body Mass Index Measured English2: 26.78 kg/m2 (06/23/21:20:) BSA: 1.91 m2 (06/23/21:) Ht/Wt Measurement Refused by Patient?2: No (06/23/21) Depression Screening Scores Initial Depression Screen Score: 0 (06/23/21:) Fall Risk Assessment Is the patient ambulatory (mobile): Yes (06/23/21:) Have you had a fall within the past: No (06/23/21) Have you had 2 or more falls in the past: No (06/23/21) Vital signs reviewed and are normal He is alert oriented comfortable examination chair No dysmorphic features, unaccompanied Cranial nerves II through XII are intact and symmetric bilateral, he does have some hypesthesia surrounding the left carotid endarterectomy incision Auricles are canals and tympanic membranes are normal bilaterally Nose is unremarkable on anterior rhinoscopy Oral cavity and oropharynx unremarkable with no mucosal or mass lesions, normal tongue mobility, normal salivary pool, dentition in good repair Palpation of the neck shows no mass lesions, no pain, well-healed left carotid endarterectomy incision When asked where he experiences the pain most he points to the left angle of mandible and generalized cheek area. He said with a bite of food he could localize where the pain occurs. He is offered a bite of cookie after verifying no food allergies and he localizes to the left parotid gland. Lab Results Last Months Labs No qualifying data available. Patient Instructions Call with any questions or concerns: For routine issues please contact the office at: [phone] For urgent issues you may reach me via cell at: [phone] -please leave patient's name and date of -text preferred -may also leave a voicemail if I do not pick pack worker Assessment/Plan 1. Pain in salivary gland region K11.8 He presents with a classic description of first bite syndrome. This is a rare but recognized sequelae of carotid surgery. It is also known to occur with surgery of the parotid gland. I have explained the proposed pathophysiology of this is an imbalance between the sympathetic compare with sympathetic signals to the gland and that with the initiation of eating there is a surge of parasympathetic discharge that is not balanced by sympathetic tone. Most of the literature supports that this improves over the course of several months. I discussed there has been some evidence that botulinum toxin injection to the parotid gla (more content not included)... Normal [facility] Ambulatory Clinical Summaryo n 06-23-2021 Ambulatory Clinical Summary TARAH MCALLISTER :1960 Visit Date:06/23/2021 Ambulatory Visit Instructions Your Care Team Attending Physician - ALOK MCRAE, [address] Primary Care Physician - NO FAMILY PHYSICIAN, [id number] Procedures Performed Carotid Endarterectomy. (01/06/2021) Discharge Vitals Blood Pressure 124/81 Height 170 cm Weight 78 kg BMI 26.99 Systolic Blood Pressure: 124 mmHg (06/23/21 15:20:00) Diastolic Blood Pressure: 81 mmHg (06/23/21 15:20:00) Mean Arterial Pressure: 95 mmHg (06/23/21 15:20:00) BP Site2: Left arm (06/23/21 15:20:00) Height/Length Measured: 170 cm (06/23/21 15:20:00) Weight Measured: 78 kg (06/23/21 15:20:00) Body Mass Index Measured: 26.99 kg/m2 (06/23/21 15:20:00) Weight Measured - lbs2: 171 lb (06/23/21 15:20:00) Height/Length Measured - in2: 67 in (06/23/21 15:20:00) Body Mass Index Measured English2: 26.78 kg/m2 (06/23/21 15:20:00) BSA: 1.91 m2 (06/23/21 15:20:00) Ht/Wt Measurement Refused by Patient?2: No (06/23/21 15:20:00) What to do next Instructions From Your Doctor Call with any questions or concerns: For routine issues please contact the office at: [phone] For urgent issues you may reach me via cell at: [phone] -please leave patient's name and date of -text preferred -may also leave a voicemail if I do not pick pack worker Scheduled Follow-Up Appointments Appointment Type Reason for visit Day With Date Time Where City[facility] Follow Up 3 M F/UP Saturday IRIS DICKINSON MD September 29, 2021 02:40 pm EDT ENT MH/ Medications What How Much When Instructions New Non-Formulary Med (Herbal Supplement) Changed lisinopril (lisinopril 10 mg oral tablet) ORAL Changed lisinopril (Zestril 20 mg oral tablet) 1 Tabs Oral DAILY Unchanged ascorbic acid (Vitamin C) Oral DAILY Unchanged aspirin (aspirin 81 mg oral delayed release tablet) 1 Tabs Oral DAILY WITH BREAKFAST Unchanged atorvastatin (Lipitor 40 mg oral tablet) 2 Tabs Oral AT BEDTIME Unchanged ergocalciferol (Vitamin D) Oral DAILY Unchanged glipiZIDE (Glucotrol 10 mg oral tablet) 1 Tabs Oral DAILY Unchanged lovastatin (lovastatin 40 mg oral tablet) Unchanged metFORMIN (Glucophage 500 mg oral tablet) 2 Tabs Oral TWICE A DAY WITH MEALS Unchanged Non-Formulary Med (apple cider vineagar) Oral Unchanged Non-Formulary Med (Krill oil) Oral Unchanged Non-Formulary Med (METFORMIN 500MG TAB) Unchanged Non-Formulary Med (vitamin B) Oral Unchanged pioglitazone (Actos 30 mg oral tablet) 1.5 Tabs Oral DAILY Unchanged vitamin E Oral DAILY Allergies No Known Allergies Problems Ongoing - Any problem that you are currently receiving treatment for. Head pain History of left-sided carotid endarterectomy. Hyperlipidemia Hypertensive disorder Left carotid stenosis Type 2 diabetes mellitus Common Emergency Awareness Tips IS IT A STROKE? Act FAST and Check for these signs: FACE Does the face look uneven? ARM Does one arm drift down? SPEECH Does their speech sound strange? TIME Call at any sign of stroke Heart Attack Signs Chest discomfort: Most heart attacks involve discomfort in the center of the chest and lasts more than a few minutes, or goes away and comes back. It can feel like uncomfortable pressure, squeezing, fullness or pain. Discomfort in upper body: Symptoms can include pain or discomfort in one or both arms, back, neck, jaw or stomach. Shortness of breath: With or without discomfort. Other signs: Breaking out in a cold sweat, nausea, or lightheaded. Remember, MINUTES DO MATTER. If you experience any of these heart attack warning signs, call to get immediate medical attention! Normal [facility] Ambulatory Clinical Summaryo n 04-19-2021 Ambulatory Clinical Summary TARAH MCALLISTER :1960 Visit Date:04/14/2021 Ambulatory Visit Instructions Your Diagnosis Left carotid stenosis Your Care Team Attending Physician - RESHMA MCRAE, DRE Primary Care Physician - ALLEN MCRAE, MATTIE Procedures Performed Carotid Endarterectomy. (01/06/2021) Discharge Vitals No qualifying data available. Medications What How Much When Why Instructions Unchanged acetaminophen-oxycodo ne (acetaminophen-oxycod one 325 mg-5 mg oral tablet = Percocet) 1 Tabs Oral EVERY SIX HOURS as needed for Moderate to Severe Pain as needed for postoperative pain Unchanged amLODIPine (Norvasc 2.5 mg oral tablet) 1 Tabs Oral DAILY Unchanged ascorbic acid (Vitamin C) Oral DAILY Unchanged aspirin (aspirin 81 mg oral delayed release tablet) 1 Tabs Oral DAILY WITH BREAKFAST Unchanged atorvastatin (Lipitor 40 mg oral tablet) 2 Tabs Oral AT BEDTIME Unchanged ergocalciferol (Vitamin D) Oral DAILY Unchanged glipiZIDE (Glucotrol 10 mg oral tablet) 1 Tabs Oral DAILY Unchanged lisinopril (Zestril 20 mg oral tablet) 1 Tabs Oral DAILY Unchanged metFORMIN (Glucophage 500 mg oral tablet) 2 Tabs Oral TWICE A DAY WITH MEALS Unchanged mupirocin topical (mupirocin 2% topical ointment = bactroban) 1 Application Topical THREE TIMES A DAY Encounter for surgical aftercare following surgery of circulatory system Duration: 5 Days apply a thin film Unchanged Non-Formulary Med (apple cider vineagar) Oral Unchanged Non-Formulary Med (Krill oil) Oral Unchanged Non-Formulary Med (vitamin B) Oral Unchanged pioglitazone (Actos 30 mg oral tablet) 1.5 Tabs Oral DAILY Unchanged vitamin E Oral DAILY Allergies No Known Allergies Problems Ongoing - Any problem that you are currently receiving treatment for. Head pain Hyperlipidemia Hypertensive disorder Left carotid stenosis Type 2 diabetes mellitus Common Emergency Awareness Tips IS IT A STROKE? Act FAST and Check for these signs: FACE Does the face look uneven? ARM Does one arm drift down? SPEECH Does their speech sound strange? TIME Call at any sign of stroke Heart Attack Signs Chest discomfort: Most heart attacks involve discomfort in the center of the chest and lasts more than a few minutes, or goes away and comes back. It can feel like uncomfortable pressure, squeezing, fullness or pain. Discomfort in upper body: Symptoms can include pain or discomfort in one or both arms, back, neck, jaw or stomach. Shortness of breath: With or without discomfort. Other signs: Breaking out in a cold sweat, nausea, or lightheaded. Remember, MINUTES DO MATTER. If you experience any of these heart attack warning signs, call to get immediate medical attention! Normal [facility] Physician Progress Noteon 04-14-2021 [facility] Physician Progress Note Chief Complaint 2 month surgical f/u History of Present Illness Mr. Mcallister is a 60 year old male with PMH for hypertension, hyperlipidemia, and diabetes mellitus. He was admitted to [facility] from January 03 to January 09, 2021 where he was seen in consult by Dr. Justice for critical LEFT carotid artery stenosis. He presents today for hospital follow-up status post left carotid endarterectomy with bovine patch by Dr. Justice on January 06, 2021. Postoperative course was uncomplicated. Patient was discharged on aspirin and statin therapy. The patient was started on Norvasc in addition to his lisinopril. He is not taking the Norvasc now as he thought this was only for 30 days as that works with the prescription was for. I am not sure that he is followed up with the his medical doctors. They can handle this and he should follow-up. Patient complains of decreased numbness along the incision line which is typical. He does have pain in the jaw with the area of the surgery with the initial bite of almost every meal. After that it goes away. It is only initial bite. Additionally has numbness and tingling in the fourth and fifth digits of the left hand. This could be an ulnar nerve issue. This is on the left side. Is been present since surgery. I think we need to EMG nerve conduction testing in this regard. The patient did not therapy did not get his follow-up carotid ultrasound. We need to reorder this. Otherwise see him back in a month or so to review all of this. Physical Exam Vitals & Measurements No qualifying data available. Depression Screening Scores No Depression Screening data available for this encounter. Fall Risk Assessment No Falls Risk Assessment data available for this encounter. No acute distress Scar well-healed left neck No carotid bruit right or left Chest clear Heart regular rate and rhythm Tablet Coater strength good Subjective numbness fourth and fifth digits left hand Diagnostic Results Patient was scheduled to have carotid ultrasound approximately 04/08/2021. Patient did not have testing. We will need to repeat Patient Instructions You appear to be doing well from your carotid surgery or carotid revascularization procedure relative to the vascular portion. We do need to have a repeat carotid ultrasound. Previous record indicates this was ordered but may have slipped through the cracks so to speak. You will need to get this test. We will reorder the test. This is a repeat carotid ultrasound typically done 1 to 2 months after carotid surgery. Additionally you have numbness in the fourth and fifth digits left hand. This could be due to some pressure on the ulnar nerve at the elbow that may have occurred during surgery. I do not think is related to the actual surgery relative to brain circulation. I would like to have this tested. He described pain with initial chewing or biting when eating. I would like to have you see an ear nose and throat doctor in this regard to see if there is anything can be done. We will give you referrals. We will order the carotid test. I will see you back in 1 month. If you would like you can make a telehealth visit for that follow-up visit in about a month. Assessment/Plan 1. Left carotid stenosis I65.22 Ordered: AMB Ancillary Order - Carotid, *Est. 04/14/2021 due within 4 weeks, Order For Future Visit AMB Follow - Up Appt Amb, 04/14/2021 08:55:00 EDT, 4-6 weeks AMB Office/Outpt Est Pt Mod MDM / 30-39 min 70527, 04/14/2021 08:55:00 EDT, Left carotid stenosis / History of left-sided carotid endarterectomy. 2. History of left-sided carotid endarterectomy. Z98.890 Ordered: CARLOS Ancillary Order - Carotid, *Est. 04/14/2021 due within 4 weeks, Order For Future Visit AMB Follow - Up Appt Amb, 04/14/2021 08:55:00 EDT, 4-6 weeks AMB Office/Outpt Est Pt Mod MDM / 30-39 min 32009, 04/14/2021 08:55:00 EDT, Left carotid stenosis / History of left-sided carotid endarterectomy. Refer to Dr. Tarah Nunn for EMG nerve conduction testing Refer to ear nose and throat for evaluation of pain in jaw with initial episodes of eating Problem List/Past Medical History Ongoing Head pain History of left-sided carotid endarterectomy. Hyperlipidemia Hypertensive disorder Left carotid stenosis Type 2 diabetes mellitus Historical No qualifying data Procedure/Surgical History Carotid Endarterectomy.: 01/06/21 Medications Actos 30 mg oral tablet, 45 mg= 1.5 tabs, ORAL, DAILY apple cider vineagar, ORAL aspirin 81 mg oral delayed release tablet, 81 mg= 1 tabs, ORAL, DAILY WITH BREAKFAST Glucophage 500 mg oral tablet, 1000 mg= 2 tabs, ORAL, BIDWM Glucotrol 10 mg oral tablet, 10 mg= 1 tabs, ORAL, DAILY Krill oil, ORAL Lipitor 40 mg oral tablet, 80 mg= 2 tabs, ORAL, QHS vitamin B, ORAL Vitamin C, ORAL, DAILY Vitamin D, ORAL, DAILY vitamin E, ORAL, DAILY Zestril 20 mg oral tablet, 20 mg= 1 tabs, ORAL, DAILY Allergies No Known Allergies Social History Alcohol - Denie (more content not included)... Normal [facility] Ambulatory Clinical Summaryo n 04-14-2021 Ambulatory Clinical Summary ESVINTARAH FRANKS Celso :1960 Visit Date:04/14/2021 Ambulatory Visit Instructions Your Diagnosis Left carotid stenosis History of left-sided carotid endarterectomy. Your Care Team Attending Physician - RESHMA MCRAE, DRE Primary Care Physician - ALLEN MCRAE, MATTIE Jurado Performed Carotid Endarterectomy. (01/06/2021) Discharge Vitals Heart Rate (Peripheral) 91 Blood Pressure 129/82 Height 173 cm Weight 82 kg BMI 27.4 Systolic Blood Pressure: 129 mmHg (04/14/21 08:41:00) Diastolic Blood Pressure: 82 mmHg (04/14/21 08:41:00) SpO2: 95 % (04/14/21 08:41:00) Peripheral Pulse Rate: 91 bpm (04/14/21 08:41:00) Mean Arterial Pressure: 98 mmHg (04/14/21 08:41:00) BP Site2: Left arm (04/14/21 08:41:00) Height/Length Measured: 173 cm (04/14/21 08:41:00) Weight Measured: 82 kg (04/14/21 08:41:00) Body Mass Index Measured: 27.4 kg/m2 (04/14/21 08:41:00) Weight Measured - lbs2: 180 lb (04/14/21 08:41:00) Height/Length Measured - in2: 68 in (04/14/21 08:41:00) Body Mass Index Measured English2: 27.37 kg/m2 (04/14/21 08:41:00) BSA: 1.98 m2 (04/14/21 08:41:00) Ht/Wt Measurement Refused by Patient?2: No (04/14/21 08:41:00) What to do next Instructions From Your Doctor You appear to be doing well from your carotid surgery or carotid revascularization procedure relative to the vascular portion. We do need to have a repeat carotid ultrasound. Previous record indicates this was ordered but may have slipped through the cracks so to speak. You will need to get this test. We will reorder the test. This is a repeat carotid ultrasound typically done 1 to 2 months after carotid surgery. Additionally you have numbness in the fourth and fifth digits left hand. This could be due to some pressure on the ulnar nerve at the elbow that may have occurred during surgery. I do not think is related to the actual surgery relative to brain circulation. I would like to have this tested. He described pain with initial chewing or biting when eating. I would like to have you see an ear nose and throat doctor in this regard to see if there is anything can be done. We will give you referrals. We will order the carotid test. I will see you back in 1 month. If you would like you can make a telehealth visit for that follow-up visit in about a month. Medications What How Much When Instructions Unchanged ascorbic acid (Vitamin C) Oral DAILY Unchanged aspirin (aspirin 81 mg oral delayed release tablet) 1 Tabs Oral DAILY WITH BREAKFAST Unchanged atorvastatin (Lipitor 40 mg oral tablet) 2 Tabs Oral AT BEDTIME Unchanged ergocalciferol (Vitamin D) Oral DAILY Unchanged glipiZIDE (Glucotrol 10 mg oral tablet) 1 Tabs Oral DAILY Unchanged lisinopril (Zestril 20 mg oral tablet) 1 Tabs Oral DAILY Unchanged metFORMIN (Glucophage 500 mg oral tablet) 2 Tabs Oral TWICE A DAY WITH MEALS Unchanged Non-Formulary Med (apple cider vineagar) Oral Unchanged Non-Formulary Med (Krill oil) Oral Unchanged Non-Formulary Med (vitamin B) Oral Unchanged pioglitazone (Actos 30 mg oral tablet) 1.5 Tabs Oral DAILY Unchanged vitamin E Oral DAILY What How Much When Why Comments Stop Taking acetaminophen-oxycodo ne (acetaminophen-oxycod one 325 mg-5 mg oral tablet = Percocet) 1 Tabs Oral EVERY SIX HOURS as needed for Moderate to Severe Pain as needed for postoperative pain Stop Taking amLODIPine (Norvasc 2.5 mg oral tablet) 1 Tabs Oral DAILY Stop Taking mupirocin topical (mupirocin 2% topical ointment = bactroban) 1 Application Topical THREE TIMES A DAY Encounter for surgical aftercare following surgery of circulatory system Duration: 5 Days apply a thin film Allergies No Known Allergies Problems Ongoing - Any problem that you are currently receiving treatment for. Head pain History of left-sided carotid endarterectomy. Hyperlipidemia Hypertensive disorder Left carotid stenosis Type 2 diabetes mellitus Common Emergency Awareness Tips IS IT A STROKE? Act FAST and Check for these signs: FACE Does the face look uneven? ARM Does one arm drift down? SPEECH Does their speech sound strange? TIME Call at any sign of stroke Heart Attack Signs Chest discomfort: Most heart attacks involve discomfort in the center of the chest and lasts more than a few minutes, or goes away and comes back. It can feel like uncomfortable pressure, squeezing, fullness or pain. Discomfort in upper body: Symptoms can include pain or discomfort in one or both arms, back, neck, jaw or stomach. Shortness of breath: With or without discomfort. Other signs: Breaking out in a cold sweat, nausea, or lightheaded. Remember, MINUTES DO MATTER. If you experience any of these heart attack warning signs, call to get immediate medical attention! Normal [facility] Physician Progress Noteon 02-10-2021 [facility] Physician Progress Note Chief Complaint patient here for surgical follow up, Lt carotid endarterectomy w/ patch History of Present Illness Mr. Mcallister is a 60 year old male with PMH for hypertension, hyperlipidemia, and diabetes mellitus. He was admitted to [facility] from January 03 to January 09, 2021 where he was seen in consult by Dr. Justice for critical LEFT carotid artery stenosis. He presents today for hospital follow-up status post left carotid endarterectomy with bovine patch by Dr. Justice on January 06, 2021. Postoperative course was uncomplicated. Patient was discharged on aspirin and statin therapy. Patient reports she is doing well only complaints are that he has pain with turning his head to the left, the pain is on the right side when turning his head to the left and he cannot do this completely. Associated symptoms include tingling of the fourth and fifth fingers which began approximately 2 weeks ago. Tingling radiates up arm to shoulder and neck with turning head. He does have a little bit of residual numbness to the left cheek and under the ear. He denies any dizziness, syncope, speech disturbance, visual loss, or weakness. He is back to work. Of note he does complain of something behind the left ear that he noticed while in the shower as well as dry flaky skin coming from the left earlobe. Review of Systems Constitutional: Denies fever, chills, unintentional weight loss or gain. Cardiovascular: denies angina, denies chest pain, denies palpitations Respiratory: denies difficulty breathing, denies chest tightness, denies cough Gastrointestinal: denies abdominal pain, denies diarrhea, denies dysphagia, denies nausea, denies vomiting Musculoskeletal: + pain right side of neck when turning head to left; + tingling 4th and 5th fingers of left hand Skin:+ dry, flaky skin left ear lobe, sore behind left ear Neurological: Denies aphasia, denies confusion, denies dizziness Neck: denies enlarged lymph nodes, denies neck mass, denies tenderness of lymph nodes Physical Exam Vitals & Measurements Systolic Blood Pressure: 125 mmHg (02/10/21 09:58:00) Diastolic Blood Pressure: 79 mmHg (02/10/21 09:58:00) Height/Length Measured: 170 cm (02/10/21 09:58:00) Weight Measured: 79 kg (02/10/21 09:58:00) Body Mass Index Measured: 27.34 kg/m2 (02/10/21 09:58:00) Depression Screening Scores Initial Depression Screen Score: 0 (02/10/21 09:58:00) Fall Risk Assessment Is the patient ambulatory (mobile): Yes (02/10/21 09:58:00) Have you had a fall within the past: No (02/10/21 09:58:00) Have you had 2 or more falls in the past: No (02/10/21 09:58:00) Constitutional: Alert and oriented x 3. Neck: Left neck incision well-healed. Respiratory: Chest expansion is adequate bilaterally. Lungs are clear to auscultation. Cardiovascular: Heart rate and rhythm is regular. Extremities: No edema Abdomen: Soft and Non-tender. Musculoskeletal: Walks with a normal gait. Motor strength is intact Skin: Warm and dry; superficial abrasion behind left ear, with small scabbed areas and blood on ear loop of mask. Dry, flaky skin noted to left earlobe. Neurological: Cooperative Lab Results Last Months Labs Last Month Chemistry Estimated Creatinine Clearance Unable to calculate 02/10/21 Assessment/Plan 1. Encounter for surgical aftercare following surgery of circulatory system Z48.812 60-year-old male who presents today status post left carotid endarterectomy with bovine patch by Dr. Justice on January 06, 2021 No focal deficits His residual numbness to left cheek and under the ear area near incision line. Patient aware nerve pain from surgical procedure that can take approximately 6 months to 1 year for his resolution. Right neck pain with turning of head and tingling on fourth and fifth digit of left hand likely nerve impingement in his neck, less likely related to the carotid endarterectomy however I will review with Dr. Justice. Advised him that after following his hot shower routine to slowly start neck exercises as shown in the office. He may also use a heating pad as needed. He may also want to try [id number] ibuprofen as needed for pain and inflammation and to follow directions on the bottle. Repeat carotid duplex in 2 months. Follow-up appointment with Dr. Justice in 2 months following carotid duplex. Ordered: mupirocin 2% topical ointment = bactroban, 1 karina, Topical, TID, apply a thin film, # 22 g, Refill(s) 0, Date: 02/10/2021 10:27:00 EDT, Pharmacy: [id number], 1 karina Topical TID,x5 days,Instr:apply a thin film, Encounter for surgical aftercare following surgery of circulatory system, 1... AMB Follow - Up Appt Amb, 02/10/2021 10:27:00 EDT, DRE JUSTICE MD, 2 months AMB Postop followup during global period 98239, 02/10/2021 10:27:00 EDT, Encounter for surgical aftercare following surgery of circulatory system / Hypertensive disorder / Hyperlipidemia / Type 2 diabetes mellitus / Abrasion of ear AMB SGMG A (more content not included)... Normal [facility] Vital Signs Date Time Vital Sign Value Performing Clinician Faci warreny 02-18-2025 06:16-0400 Diastolic Blood Pressure Non-Invasive 84 mm[Hg] NIDAL CHOUJAA DO [facility] 02-18-2025 06:16-0400 Heart rate 74 /min NIDAL CHOUJAA DO [facility] 02-18-2025 06:16-0400 Respiratory rate 16 /min NIDAL CHOUJAA DO [facility] 02-18-2025 06:16-0400 Systolic Blood Pressure Non-Invasive 140 mm[Hg] NIDAL CHOUJAA DO [facility] 02-18-2025 04:05-0400 Blood Pressure Location NIDAL CHOUJAA DO [facility] 02-18-2025 04:05-0400 Body temperature 98.6 [degF] NIDAL CHOUJAA DO [facility] 02-18-2025 04:05-0400 Diastolic Blood Pressure Non-Invasive 93 mm[Hg] NIDAL CHOUJAA DO [facility] 02-18-2025 04:05-0400 Heart rate 84 /min NIDAL CHOUJAA DO [facility] 02-18-2025 04:05-0400 Respiratory rate 16 /min NIDAL CHOUJAA DO [facility] 02-18-2025 04:05-0400 Systolic Blood Pressure Non-Invasive 175 mm[Hg] [facility] 08-10-2022 10:15-0400 Body temperature 97.8 [degF] HOSPITAL MORTICIAN-C Jaimie Solitario HOSPITAL MORTICIAN Work Phone: [facility] Work Phone: 08-10-2022 10:15-0400 Diastolic blood pressure 71 mm[Hg] HOSPITAL MORTICIAN-C Jaimie Solitario HOSPITAL MORTICIAN Work Phone: [facility] Work Phone: 08-10-2022 10:15-0400 Heart rate 61 /min HOSPITAL MORTICIAN-C Jaimie Solitario [facility] MORTICIAN Work Phone: [facility] Work Phone: 08-10-2022 10:15-0400 Respiratory rate 16 /min HOSPITAL MORTICIAN-C Jaimie Solitario HOSPITAL MORTICIAN Work Phone: [facility] Work Phone: 08-10-2022 10:15-0400 SaO2% (BldA) [Mass fraction] 97 % HOSPITAL MORTICIAN-C Jaimie Solitario HOSPITAL MORTICIAN Work Phone: [facility] Work Phone: 08-10-2022 10:15-0400 Systolic blood pressure 101 mm[Hg] HOSPITAL MORTICIAN-C Jaimie Solitario HOSPITAL MORTICIAN Work Phone: [facility] Work Phone: 08-10-2022 08:30-0400 Body height 170.18 cm HOSPITAL MORTICIAN-C Jaimie Solitario HOSPITAL MORTICIAN Work Phone: [facility] Work Phone: 08-10-2022 08:30-0400 Body mass index (BMI) [Ratio] 25.2 kg/m2 HOSPITAL MORTICIAN-C Jaimie Solitario HOSPITAL MORTICIAN Work Phone: [facility] Work Phone: 08-10-2022 08:30-0400 Body weight 73 kg HOSPITAL MORTICIAN-C Jaimie Solitario HOSPITAL MORTICIAN Work Phone: [facility] Work Phone: 06-29-2022 12:48-0400 Body mass index (BMI) [Ratio] 25.9 kg/m2 HOSPITAL MORTICIAN-C Jaimie Solitario HOSPITAL MORTICIAN Work Phone: [facility] Work Phone: 06-29-2022 12:48-0400 Body temperature 97.2 [degF] HOSPITAL MORTICIAN-C Jaimie Solitario HOSPITAL MORTICIAN Work Phone: [facility] Work Phone: 06-29-2022 12:48-0400 Body weight 75.06 kg HOSPITAL MORTICIAN-C Jaimie Solitario HOSPITAL MORTICIAN Work Phone: [facility] Work Phone: 06-29-2022 12:48-0400 Diastolic blood pressure 64 mm[Hg] HOSPITAL MORTICIAN-C Jaimie Solitario HOSPITAL MORTICIAN Work Phone: [facility] Work Phone: 06-29-2022 12:48-0400 Heart rate 110 /min HOSPITAL MORTICIAN-C Jaimie Solitario HOSPITAL MORTICIAN Work Phone: [facility] Work Phone: 06-29-2022 12:48-0400 Respiratory rate 18 /min HOSPITAL MORTICIAN-C Jaimie Solitario HOSPITAL MORTICIAN Work Phone: [facility] Work Phone: 06-29-2022 12:48-0400 SaO2% (BldA) [Mass fraction] 95 % HOSPITAL MORTICIAN-C Jaimie Solitario HOSPITAL MORTICIAN Work Phone: [facility] Work Phone: 06-29-2022 12:48-0400 Systolic blood pressure 115 mm[Hg] HOSPITAL MORTICIAN-C Jaimie Solitario HOSPITAL MORTICIAN Work Phone: [facility] Work Phone: Encounters Encounter Date Encounter Type Care Provider Facility Start: 03-11-2025 End: 03-15-2025 ambulatory JAIMIE Ty KASSI [employer] DEPARTMENT SUPERVISOR Facility:[facility] Start: 03-11-2025 End: 03-15-2025 Outreach Lab JAIMIE Crawford KASSI [employer] DEPARTMENT SUPERVISOR [facility] Start: 02-18-2025 End: 02-18-2025 Emergency department patient visit RADHA FRANCIS DO [facility] Start: 11-10-2023 End: 11-10-2023 Emergency department patient visit JAIMIE Crawford KASSI [employer] DEPARTMENT SUPERVISOR Facility:[facility] Start: 12-13-2022 End: 12-14-2022 ambulatory JAIMIE Crawford KASSI [employer] DEPARTMENT SUPERVISOR Facility:[facility] Start: 12-13-2022 End: 12-13-2022 Patient encounter procedure JAIMIE Crawford KASSI [employer] DEPARTMENT SUPERVISOR [facility] Start: 08-10-2022 ambulatory Jaimie Solitario Facility :[facility] Start: 08-10-2022 End: 08-10-2022 ambulatory Jaimie Solitario Facility:[facility] Start: 08-10-2022 Non-patient / Non-visit HOSPITAL MORTICIAN-C Helen Solitario HOSPITAL MORTICIAN Work Phone: [facility] Start: 08-10-2022 End: 08-10-2022 Admission to same day surgery center HOSPITAL MORTICIAN-C Jaimie Solitario HOSPITAL MORTICIAN Work Phone: [facility] Start: 08-10-2022 End: 08-10-2022 ambulatory HOSPITAL MORTICIAN-C Jaimie Solitario HOSPITAL MORTICIAN Work Phone: [facility] Work Phone: Start: 06-29-2022 End: 06-29-2022 ambulatory Jaimie Solitario Facility:[facility] Start: 06-29-2022 End: 06-29-2022 Patient encounter procedure HOSPITAL MORTICIAN-Taylor Solitario HOSPITAL MORTICIAN Work Phone: [facility] Start: 01-19-2022 End: 07-20-2022 OTHER THERAPY JAIMIE SOLITARIO [employer] DEPARTMENT SUPERVISOR [facility] Procedures Date Procedure Procedure Detail Performing Clinician Start: 08-10-2022 Colonoscopy HOSPITAL MORTICIAN-C Madelaine Solitario HOSPITAL MORTICIAN Work Phone: Start: 02-16-2013 Colonoscopy JAIMIE BLANTON [employer] DEPARTMENT SUPERVISOR Comment on above: repeat in 5-7 years Plan of Treatment Date Care Activity Detail Author Start: 08-10-2022 Patient discharge [facility] Work Phone: Colonoscopy [facility] Work Phone: Patient referral [facility] Work Phone: Immunizations Immunization Date Immunization Notes Care Provider Fa [facility] 06-15-2022 pneumococcal 20-patrica nt conjugate vaccine JAIMIE SOLITARIO [employer] DEPARTMENT SUPERVISOR [facility] 09-15-2021 SARS-CoV-2 mRNA (tozinameran) vaccine JAIMIE SOLITARIO [employer] DEPARTMENT SUPERVISOR [facility] 08-25-2021 SARS-CoV-2 mRNA (tozinameran) vaccine JAIMIE SOLITARIO [employer] DEPARTMENT SUPERVISOR [facility] 01-04-2021 influenza virus vaccine, unspecified formulation JAIMIE SOLITARIO [employer] DEPARTMENT SUPERVISOR [facility] 05-09-2014 tetanus toxoid, redu elvia diphtheria toxoid, and acellular pertussis vaccine, adsorbed JAIMIE KASSI [employer] DEPARTMENT SUPERVISOR [facility] Payers Date Payer Category Payer Private Health Insurance [id number] 2025 Unknown [id number] 2024 Medicaid [id number] 2022 Unknown [id number] 2021 Self-pay [id number] 1960 Unknown [id number] 2.16.8 [id number] 1960 Unknown [id number] 2.16.8 [id number] 1960 Unknown [id number] 2.16.8 [id number] 1960 Unknown [id number] 2.16.8 [id number] Unknown [id number] 2.16.8 [id number] Unknown [id number] 2.16.8 [id number] Unknown [id number] 2.16.8 [id number] Social History Date Type Detail Facility Start: 06-11-2019 Tobacco smoking status Ex-smoker (fi nding) [facility] Start: 1960 Sex Assigned At Male [facility] Start: 08-08-2022 [facility] Work Phone: Sexual Orientation Barbara Celso [facility]udson [facility] Start: 04-15-2019 Sex Male (finding) [facility] Goals Date Patient Goal Desired Activity /State Functional Status Date Assessment Result Facility 02-18-2025 Functional Status Independent [facility] 02-18-2025 Functional Status Identified as high risk, 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 It may be described as lightheadedness, spinning, or feeling like you are going to faint. Dizziness can have many causes. Be sure to tell the healthcare provider about: All medicines you take, including prescription, vtza-grn-jkmhlnj, herbs, and supplements Any other symptoms you have Any health problems you are being treated for Any past major health problems you've had, such as a heart attack, balance issues, hearing problems, or blood pressure problems Anything that causes the dizziness to get worse or better Today's exam did not show an exact cause for your dizziness. Other tests may be needed. Follow up with your healthcare provider. Home care Dizziness that occurs with sudden standing may be a sign of mild dehydration. Drink extra fluids for the next few days. If you recently started a new medicine, stopped a medicine, or had the dose of a current medicine changed, talk with the prescribing healthcare provider. Your medicine plan may need adjustment. If dizziness lasts more than a few seconds, sit or lie down until it passes. This may help prevent injury in case you pass out. Get up slowly when you feel better. Don't drive or use power tools or dangerous equipment until you have had no dizziness for at least 48 hours. Follow-up care Follow up with your healthcare provider for further evaluation within the next 7 days or as advised. When to seek medical advice Call your healthcare provider for any of the following: Worsening of symptoms or new symptoms Passing out or seizure Repeated vomiting Headache Palpitations (the sense that your heart is fluttering or beating fast or hard) Shortness of breath Blood in vomit or stool (black or red color) Weakness of an arm or leg or 1 side of the face Vision or hearing changes Trouble walking or speaking Chest, arm, neck, back, or jaw pain [id number] [employer]. [address] [place] [address]. All rights reserved. This information is not intended as a substitute for professional medical care. Always follow your healthcare professional's instructions. Follow Up Care 02/18/2025 04:01:07 With:JAIMIE SOLITARIO Address: [address] [place] [phone] When:2-4 days [facility] 02-18-2025 Emergency department Discharge summary Discharge Instructions Thank you for allowing [facility] to assist you with your healthcare needs. The following is important discharge information regarding your hospital visit. 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 Post Acute Orders No qualifying data available. You Need to Schedule the Following Appointments Follow Up with JAIMIE SOLITARIO When:Within 2-4 days Where:[address] [place] [phone] Allergies NKA Medications Please ask your primary doctor or pharmacist before taking any other medication not listed, including over the counter drugs, herbal medications, vitamins and or supplements as they may interact with your home medications. What How Much When Instructions Last Dose Unchanged ascorbic acid (Vitamin C 500 mg oral tablet) 1 tab(s) by mouth Once a day Unchanged atorvastatin (atorvastatin 80 mg oral tablet) 1 tab(s) by mouth Once a day Unchanged empagliflozin (Jardiance 25 mg oral tablet) 0.5 tab(s) by mouth Once a day (in the morning) Unchanged ergocalciferol (Vitamin D2 1000 units oral tablet) 1 tab(s) by mouth Every day Unchanged herbal/ nutritional product (cider vinegar oral tablets) Unchanged herbal/ nutritional product (garlic oral capsule) 1 cap by mouth Every day Unchanged herbal/ nutritional product (Octavio Red Krill Oil 300mg oral capsule) 1 cap by mouth Once a day Unchanged ibuprofen (ibuprofen 800 mg oral tablet) TAKE ONE TABLET BY MOUTH EVERY 8 HOURS Unchanged lisinopril (lisinopril 20 mg oral tablet) 1 tab(s) by mouth Once a day Duration: 90 Days TAKE 1 TABLET BY MOUTH ONCE DAILY Unchanged metFORMIN (metFORMIN 500 mg oral tablet (IR)) 2 tab(s) by mouth Two (2) times a day Duration: 90 Days Unchanged Misc Medication insulin 10units q HS, unsure of name through [facility] Unchanged multivitamin (Vitamin B Complex oral capsule) 1 cap by mouth Every day Unchanged pioglitazone (pioglitazone 45 mg oral tablet) 1 tab(s) by mouth Every day Unchanged vitamin E (vitamin E 100 intl units oral capsule) 1 cap by mouth Every day Please take this list to your next doctor s visit. Bring all medications you take, including over the counter medications, herbals and other supplements with you to your doctor s visit. Patients and families are reminded to discard old lists and to update any records with all medication providers or retail pharmacies. Education Materials Dizziness (Uncertain Cause) Dizziness is a common symptom. It may be described as lightheadedness, spinning, or feeling like you are going to faint. Dizziness can have many causes. Be sure to tell the healthcare provider about: All medicines you take, including prescription, xewt-hck-hyceboi, herbs, and supplements Any other symptoms you have Any health problems you are being treated for Any past major health problems you've had, such as a heart attack, balance issues, hearing problems, or blood pressure problems Anything that causes the dizziness to get worse or better Today's exam did not show an exact cause for your dizziness. Other tests may be needed. Follow up with your healthcare provider. Home care Dizziness that occurs with sudden standing may be a sign of mild dehydration. Drink extra fluids for the next few days. If you recently started a new medicine, stopped a medicine, or had the dose of a current medicine changed, talk with the prescribing healthcare provider. Your medicine plan may need adjustment. If dizziness lasts more than a few seconds, sit or lie down until it passes. This may help prevent injury in case you pass out. Get up slowly when you feel better. Don't drive or use power tools or dangerous equipment until you have had no dizziness for at least 48 hours. Follow-up care Follow up with your healthcare provider for further evaluation within the next 7 days or as advised. When to seek medical advice Call your healthcare provider for any of the following: Worsening of symptoms or new symptoms Passing out or seizure Repeated vomiting Headache Palpitations (the sense that your heart is fluttering or beating fast or hard) Shortness of breath Blood in vomit or stool (black or red color) Weakness of an arm or leg or 1 side of the face Vision or hearing changes Trouble walking or speaking Chest, arm, neck, back, or jaw pain [id number] [employer]. [address] [place] [address]. All rights reserved. This information is not intended as a substitute for professional medical care. Always follow your healthcare professional's instructions. Additional Information VACCINATE! IT SAVES LIVES! Members of the community who have not yet received the COVID-19 vaccine and would like to receive it can visit one of [facility] vaccine clinics. There are many vaccine clinic locations within the [facility]. For locations and available times, please visit www.gettheshot.coronavirus.[place]. gov/. It is important to note that some COVID mobile vaccine clinics are held outdoors and may be canceled in rainy or stormy conditions. To learn more about pediatric vaccinations (ages 5-11), we invite you to visit the [facility] webpage. https://www.[facility].org/p ages/7541-Wgldb-Tsvchsfltax-Freq cejztx-Oplib-Zinwjtzdb.html To learn more about the COVID-19 vaccine, we invite you to visit the CDC website for a list of frequently asked questions. https://www.cdc.gov/coronavirus/ 2019-ncov/vaccines/faq.html [employer] Patient Portal Access Instructions: Stay connected with your healthcare team and access your personal medical information anytime with the [employer] Patient Portal. If you would like a full copy of your medical records please contact the [facility] Medical Records Department Saturday through Saturday between 8a.m. and 4:30p.m. Please follow the directions below to access the portal: 1.Access the email account you provided upon registration to the hospital.2.Look for an invitation email from [facility].3.Open the email and access the invitation link: Accept Invitation to [facility]4.Fill in the required friedman to create your account. Sign into [email or web address] with your username and password that you created in the above steps to stay up to date. You can then view a summary of results, a summary of your visits, and the ability to download your summaries to your computer or send the information securely to a physician. Remember that your healthcare information is confidential, so carefully consider who you will allow to register on the [facility] Patient Portal for access to your information. You can also access the [facility] Patient Portal on the [employer] karina. Simply click on Health Records under Health Data and then click on the [facility] logo. HOW TO SAFELY DISPOSE OF PRESCRIPTION MEDICATIONS Please use one of the following methods to safely dispose of your unused medications. 1.Use a drug disposal kit: the drug disposal pouch allows you to safely discard your old and unused drugs. Ask your nurse to give you one when you are discharged.2.Visit a local take-back location: Many local pharmacies and police departments have programs that collect old and unwanted prescription drugs. Call your local pharmacy or go to [email or web address]/3J6Bw4g to find one close to you.3.Make use of household items: Use cat litter or old coffee grounds to dispose medications if other options are not available. Mix your drugs with these household products, seal them in an airtight container and throw it into the garbage. Call [facility]: [phone] to be sure your drugs can be disposed of in this way. Some medicines may require a different approach.4.Never flush your medications down the toilet. IF YOU HAVE BEEN PRESCRIBED AN OPIOIDS FOR PAIN If you have been prescribed an opioid (such as hydrocodone, oxycodone or morphine), it is critical to understand the possible side effects and risks of opioid pain medications. Even when taken as directed, opioids can have several side effects including: Tolerance, meaning you might need to take more of a medication for the same pain relief. Nausea, vomiting and/or constipation. Sleepiness, dizziness, dry mouth, confusion, depression or itching. Physical dependence, meaning you have withdrawal symptoms when a medication is stopped ? this can develop within a few days. KNOW YOUR RESPONSIBILITIES It is important to know exactly how much and how often to take the opioid pain medications you are prescribed. Never take opioids in higher amounts or more often than prescribed. Do not combine opioids with alcohol or other drugs that cause drowsiness, such as benzodiazepines, also known as benzos, including diazepam and alprazolam, muscle relaxants or sleep aids. Never sell or share prescription opioids. This is illegal. Store opioids in a secure place and out of reach of others (including children, family, friends and visitors). The last page(s) of this document has been signed and retained as a CHART COPY Signatures Patient Education Materials Dizziness, Uncertain Cause Medication Leaflets My discharge plan and instructions have been reviewed and explained to me and I,TARAH MCALLISTER understand my current condition and have read and understand these discharge instructions. I have received a written copy of the plan/instructions. If I have questions, I am aware that I should contact my doctor. 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 Automated exposure control, iterative reconstruction, and/or weight based adjustment of the mA/kV was utilized to reduce the radiation dose to as low as reasonably achievable. COMPARISON: None. HISTORY: ORDERING SYSTEM PROVIDED HISTORY: Reason for Exam: multiple falls, dizziness, dropping things FINDINGS: BRAIN/VENTRICLES: There is no acute intracranial hemorrhage, mass effect or midline shift. No abnormal extra-axial fluid collection. The riggins-white differentiation is maintained without evidence of an acute infarct. There is no evidence of hydrocephalus. ORBITS: The visualized portion of the orbits demonstrate no acute abnormality. SINUSES: There is mucosal thickening in the left maxillary sinus. Other sinuses are unremarkable. SOFT TISSUES/SKULL: No acute abnormality of the visualized skull or soft tissues. IMPRESSION: No acute intracranial abnormality. Interpreted by: Sarah Alfonso MD Preliminary Report By: Sarah Alfonso MD Electronically signed By Sarah Alfonso MD Dictated Date: 02/18/2025 5:12:50 AM Prelim Date: 02/18/2025 5:14:35 AM Sign Date: 02/18/2025 5:14:35 AM Ordering Provider: RADHA FRANCIS [facility]05-01-2025 Note* Exam Date Time Procedure Performing Provider Status 02/18/25 4:38 AM EKG [ED AOH] - CV RADHA FRANCIS DO; Au th (Verified) ECG Final Report Sinus rhythm Abnormal R-wave progression, late transition Inferior infarct, old This EKG was read and contributed directly to the care of the patient Electronic Signature: RADHA FRANCIS DO 02/18/2025 04:52:18 [facility]10-21-2022 [facility] Medical Records Department [address] [place] [address] History Physical Exam 08/10/22920 MR#: [id number] Acct: [id number] Name: TARAH MCALLISTER Rep #: [id number] : 1960 62 From: Neil Barbour MD PCP: RADHA Castro Status:[facility] Location: [place] [address] History and Physical Date of Admission: 08/10/22 Intake Vital Signs ??? 05/19/2113:06 06/29/2212:48 Height 5 ft 8 in 5 ft 7 in Weight: ??? 165 lb 8 oz BMI ??? 25.9 BP ??? 115/64 Blood Pressure Location ??? Rt brachial Position ??? Sitting Respiration ??? 18 Pulse ??? 110 H Pulse Source ??? NIBP Temp ??? 97.2 F L Temp Source ??? Temporal Pulse Oximetry (%) ??? 95 Oxygen Delivery Method ??? room air Intake Visit Reasons:???COLONOSCOPY Chief Complaint: c-scope, hx polyps Front Desk Administrator Required: No Is patient in pain?: No Allergies No Known Allergies Allergy (Verified 06/29/22 12:48) Medications B-complex with vitamin C (Super B Complex-Vitamin C tablet) 1 tab PO DAILY 05/19/21 [History Confirmed 06/29/22] apple cider vinegar 600 mg capsule mg PO 05/19/21 [History Confirmed 06/29/22] ascorbic acid (vitamin C) 250 mg tablet 250 mg PO DAILY 05/19/21 [History Confirmed 06/29/22] cholecalciferol (vitamin D3) 25 mcg (1,000 unit) capsule 25 mcg PO DAILY 05/19/21 [History Confirmed 05/19/21] garlic 500 mg capsule 500 mg PO DAILY 05/19/21 [History Confirmed 06/29/22] lisinopril 20 mg tablet 20 mg PO DAILY 05/19/21 [History Confirmed 06/29/22] lovastatin 20 mg tablet 20 mg PO DAILY 05/19/21 [History Confirmed 05/19/21] metformin 1,000 mg tablet 1,000 mg PO BID 05/19/21 [History Confirmed 06/29/22] vitamin E 200 unit capsule 200 unit PO DAILY 05/19/21 [History Confirmed 06/29/22] atorvastatin 80 mg tablet 80 mg PO QHS 06/29/22 [History Confirmed 06/29/22] krill oil 500 mg capsule 500 mg PO QDAY 06/29/22 [History Confirmed 06/29/22] pioglitazone 45 mg tablet 45 mg PO DAILY 06/29/22 [History Confirmed 06/29/22] PFSH Medical History???(Updated 06/29/22 @ 12:36 by Dagmar Maxwell) Carotid stenosis Diabetes High cholesterol HTN (hypertension) Surgical History???(Updated 06/29/22 @ 12:39 by Dagmar Maxwell) History of colonoscopy ( 2012) History of right-sided carotid endarterectomy Family History???(Updated 06/29/22 @ 12:47 by Dagmar Maxwell) Mother Colon cancerFather Diabetes Hypertension Cancer ? renal Social History??? Smoking Status:??? Former smoker alcohol intake:??? current alcohol intake frequency: a few times a week HPI HPI HPI: Patient is a 62 male here for colonoscopy.??? Patient has last colonoscopy 2012 was found have a polyp.??? He was recommended to repeat in 5 years but has not been able to have it redone.??? Patient denies any abdominal pain or blood in the stool. Exam Const General: cooperative Orientation: alert and oriented x3 HENMT Head: normal to inspection Neck Neck: normal visual inspection and full ROM Chest Chest palpation inspection: normal inspection of the chest Resp Effort Inspection: normal respiratory effort Auscultation: clear to auscultation bilaterally Cardio Rate: regular rate Rhythm: regular rhythm GI Inspection: non-distended Palpation: soft and nontender Skin General: no rashes or lesions noted Neuro General: patient alert and patient oriented x3 Extrem General: full ROM Psych Appearance: grossly normal Mental Status: mental status grossly normal Assessment and Plan Assessment and Plan (1) History of colon polyps: ?Status:???Acute ?Plan: Patient has a history of polyps and is due for surveillance colonoscopy.??? I explained endoscopy in detail to the patient.??? I explained the risks including but not limited to stroke or heart attack with anesthesia, perforation of the GI tract, bleeding, infection.??? I explained that any of these could necessitate further emergency surgery.??? The patient understands and all questions were answered sufficiently.??? The patient wishes to proceed with procedure. Neil Barbour MD Pager: [facility] [address] [place] [address], [address] [place] [address] Office: I have re-examined the patient. There are no clinical changes since date of exam. 08/10/22920 Cosigner Signature (if applicable): CC: HOSPITAL MORTICIANRosi Solitario; Dr. Neil Barbour [facility] Note From: ALOK MCRAE, FREEDOM To: Jennifer Woodard MA; Sent: 05/01/2021 12:29:19 EDT Subject: another referral Hi Lisa, Here is another one. Maybe 05/15? Thx FJ DID NOT WANT THAT APPOINTMENT. [facility] Future [facility]ments Appointment Date:12/06/2022 09:30:00 AM Scheduled Provider:JAIMIE SOLITARIO APRN-ELVIN [place] [place] Appointment Type:PC OV Follow Up Future Scheduled Tests Laboratory* A1C Hemoglobin 06/08/22 * Lipid Profile 06/08/22 * Lipid Profile 06/08/22 * Complete Metabolic Panel 06/08/22 * Complete Metabolic Panel 06/08/22 [facility] Evaluation + Plan note Future Appointments Appointment Date:06/13/2023 09:30:00 AM Scheduled Provider:JAIMIE SOLITARIO APRN-ELVIN Location:[facility] [place] Appointment Type:PC OV Future Scheduled Tests Laboratory* A1C Hemoglobin 06/08/22 * Lipid Profile 06/08/22 * Lipid Profile 06/08/22 * Complete Metabolic Panel 06/08/22 * Complete Metabolic Panel 06/08/22 [facility] Evaluation note* Diagnosis Onset Date Resolution Status History of colon polyps [facility] Work Phone: Hospital course Narrative No data available for this section [facility] Hospital Discharge instructions No data available for this section [facility] Progress note No data available for this section [facility] Summary Purpose Family History No Family History Records Found Relationship Condition Age at Onset Recorded Date/T dick mother Malignant neoplasm of colon Unknown father Diabetes mellitus Unknown Hypertension Unknown Malignant neoplasm Unknown Advance Directives No Advanced Directives Records Found Advance Directive Response Recorded Date/ Time Living Will No August 08 11:35am Power of Missile Tracking Technician No August 08, 2022 11:35am Chief Complaint and Reason for Visit Chief Complaint COLONOSCOPY Reason for Visit History of colon jonatan yps Additional Source Comments (unrecognized sect ion and content) No Status Records FoundNo Status Records FoundNo Status Records FoundNo Status Records Found INFORMATION SOURCE (unrecogn ized section and content) DATE CREATED AUTHOR 01/30/2022 [facility] DATE CREATED AUTHOR AUTHOR'S ORGANIZ ATION 08/16/2022 [facility] DATE CREATED AUTHOR AUTHOR'S ORGANIZ ATION 11/15/2023 [facility] ([place]) DATE CREATED AUTHOR AUTHOR'S ORGANIZ ATION 03/24/2025 [facility] Care Team (unrecognized sect ion and content) Care Team Personnel Name: JAIMIE SOLITARIO APRN-ELVIN Position: P4 Advanced Practice Nurse Med Service: Employed Provider Member Role: Primary Care Physician Address: Address: [address] Care Team Related Persons Name: TARAH MCALLISTER Care Team Personnel Name: JAIMIE SOLITARIO APRN-AGING DEPARTMENT SUPERVISOR Position: P4 Advanced [employer] Equipment Repairer Member Role: Primary Care Physician Address: Address: [address] Care Team Related Persons Name: TARAH MCALLISTER Patient Care team informatio n (unrecognized section and content) Care Team Personnel Name: JAIMIE SOLITARIO APRN-AGING DEPARTMENT SUPERVISOR Position: P4 Advanced [employer] Equipment Repairer Member Role: Primary Care Physician Address: [address] Telecom: Care Team Related Persons Name: TARAH MCALLISTER Care Team Personnel Name: JAIMIE SOLITARIO APRN-AGING DEPARTMENT SUPERVISOR Position: P4 [employer] Equipment Repairer Member Role: Primary Care Physician Address: [address] [facility] [place] [address]- [place] Telecom: Care Team Related Persons Name: TARAH MCALLISTER FOR RECORDS PERTAINING TO PATIENTS WHO ARE OR HAVE BEEN ENROLLED IN A CHEMICAL DEPENDENCY/SUBSTANCEABUSE PROGRAM, SOME INFORMATION MAY BE OMITTED. This clinical summary was aggregated from multiple sources. Caution should be exercised in using it in the provision of clinical care. This summary normalizes information from multiple sources, and as a consequence, information in this document may materially change the coding, format and clinical context of patient data. In addition, data may be omitted in some cases. CLINICAL DECISIONS SHOULD BE BASED ON THE PRIMARY CLINICAL RECORDS. [facility] provides no warranty or guarantee of the accuracy or completeness of information in this document.
[2025-03-25 22:58] LABS: Absolute Lymphocyte Count 2.21 X10^3/uL (0.83-4.51); Absolute Neutrophil Count 5.2 X10^3/uL (2.0-7.7); Basophil# 0.06 X10^3/uL; Basophil% 0.7 % (0-1); Eosinophil# 0.14 X10^3/uL; Eosinophils% 1.7 % (0-5); Hematocrit 38.4 % (40-54); Hemoglobin 13.4 g/dL (13.0-16.5); Lymphocyte # 2.21 X10^3/ul (0.83-4.51); Lymphocyte % 26.5 % (19-41); Mean Corp Hgb Conc 34.9 g/dL (32-36); Mean Corpuscular Hgb 30.3 pg (27.0-32.0); Mean Corpuscular Volume 86.9 fL (80-94); Monocyte# 0.62 X10^3/uL; Monocyte% 7.4 % (0-10); NRBC Flagged by Analyzer 0 % (0-5); Neutrophil # 5.24 X10^3/uL (2.7-7.7); Platelet Count 215 K/mm3 (150-450); RBC Distribution Width CV 11.9 % (11.6-14.6); RBC Distribution Width SD 37.6 fl (35.1-43.9); Red Blood Count 4.42 M/mm3 (4.6-6.2); White Blood Count 8.3 K/mm3 (4.4-11.0)
--- NOTE | 2025-03-25 23:18 | RAD_ITS ---
PROCEDURE: PELVIS 1 OR 2 VIEWS 03/25/2025 REASON FOR EXAM: FALL TECHNIQUE: 1 view(s) of the pelvis. COMPARISON: None FINDINGS: See impression RAD/Pelvis 1 or 2 Views IMPRESSION: Negative for acute displaced fracture or malalignment. Reading Location: [facility]
[2025-03-25 23:23] LABS: CPK Total, Creatine Kinase 55 U/L (24-195)
[2025-03-25 23:37] LABS: BUN 7 mg/dL (4-19); BUN/Creat Ratio 8.5 RATIO (10-20); Calcium,Total 9.4 mg/dL (7.6-11.0); Chloride 96 mmol/L (98-108); Creatinine, Serum 0.77 mg/dL (0.70-1.20); EST Glomerular Filtration Rate 101 (>60); Glucose 249 mg/dL (70-99); Potassium 3.5 mmol/L (3.3-5.1); Sodium Level 135 mmol/L (133-145)
[2025-03-26] VITALS: BP 91/64; PULSE 86; RESP 16; O2SAT 95
[2025-03-26 00:03] LABS: Bacteria 0 SEEN /hpf (None Seen); Mucous, Urine 0 SEEN /hpf (<or=2+); Squamous Epithelial Cells - UA 0 SEEN /hpf (0-5); White Blood Cells 0 SEEN /hpf (0-5)
[2025-03-26 00:32] LABS: Amphetamine Urine NEGATIVE (<1000 ng/mL); Barbiturate Urine NEGATIVE (< 200 ng/mL); Benzodiazepine Urine NEGATIVE (< 200 ng/mL); Buprenorphine Urine NEGATIVE (< 200 ng/mL); Cocaine Urine NEGATIVE (< 300 ng/mL); Fentanyl, Urine NEGATIVE; Methadone Urine NEGATIVE (< 300 ng/mL); Opiates Urine NEGATIVE (< 300 ng/mL); Oxycodone, Urine NEGATIVE (< 100 ng/mL); PCP Urine NEGATIVE (< 25 ng/mL); THC Urine NEGATIVE (< 50 ng/mL)
[2025-03-26 00:36] LABS: Anion Gap 35 (5-15); Carbon Dioxide 3.2 mmol/L (21.0-32.0)
[2025-03-26 00:40] LABS: Color, Urine Yellow (Yellow); Glucose, Dipstick 1000 mg/dl (Normal); Ketone-Dipstick Negative (Negative); Leukocyte Esterase-Dipstick Negative /ul (Negative); Nitrite-Dipstick Negative (Negative); Occult Blood-Urine Negative /ul (Negative); Protein-Dipstick 15 mg/dl (Negative); Specific Gravity, Urine 1.005 (1.002-1.030); Urine Bilirubin Dipstick Negative (Negative); Urine Clarity Clear (Clear); Urine Urobilinogen Normal (Normal)
[2025-03-26 00:56] LABS: Red Blood Cells-Urine 0-5 SEEN /hpf (0-5)
[2025-03-26 01:08] LABS: Blood Gas Specimen Type VEN; O2 Delivery Device Room Air; SITE Not entered; VBG BASE EXCESS -5 mmol/L (-1.0-3.5); VBG Bicarbonate 21 mmol/L (22-26); VBG PO2 81 mmHg (25-40); VBG SO2 95 % (50-70); VBG TCO2 22 mmol/L (23-33); VBG pH 7.32 (7.32-7.42)
[2025-03-26] MEDS: 0.9% Normal Saline (1000mL) 1,000 ML 999 ML IV (01:13)
[2025-03-26 01:46] LABS: BETA-HYDROXYBUTYRATE 0.8 mmol/L (0.0-0.3)
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
[2025-03-26 02:00] VITALS: PULSE 87; RESP 16; O2SAT 98
[2025-03-26 03:32] VITALS: BP 102/60; PULSE 88; RESP 16; TEMP 36.7; O2SAT 97
== END 2025-03-26 03:32 | disposition home or self-care (01) ==
PROVIDERS: Emergency Provider Emergency Medicine; Referring Provider Emergency Medicine; Visit Provider Emergency Medicine
DX: I10 Essential (primary) hypertension (principal); E11.9 Type 2 diabetes mellitus without complications; F10.129 Alcohol abuse with intoxication, unspecified; Z59.01 Sheltered homelessness; Z87.891 Personal history of nicotine dependence; W19.XXXA Unspecified fall, initial encounter; Y90.6 Blood alcohol level of 120-199 mg/100 ml
CPT/HCPCS: 70450; 72125; 72170; 80048; 80307; 81001; 82010; 82077; 82550; 82803; 83735; 85025; 93005; 96360; 96361; 99285; A4216

== ENCOUNTER 2025-08-08 18:37 | Emergency (ER) | payer OTHER, SELFPAY ==
[2025-08-08 18:38] VITALS: BP 173/104; PULSE 99; RESP 16; TEMP 37; O2SAT 96
--- NOTE | 2025-08-08 20:01 | CM.ED ---
Social Work Date of referral: 08/08/2025 Reason for referral: Advanced Care Directives (ACD's) not on file. Referred by: Social Work Identification Patient provided consent to social work visit. [employer]ge requested patient bring in a copy of ACD's. Beatris Singer, CHIEF OF PLANNING, PACKAGER HAND
--- OUTSIDE RECORDS SUMMARY | 2025-08-08 20:06 | XMS RPT_ITS | CCD ---
Author Organization [facility] Care Team Providers Care Can Stacker Name Role Phone MARYBEL COLE Primary Care Physicia n Stef MICROSTRATEGY REPORTS DEVELOPER, MICROSTRATEGY REPORTS DEVELOPER-C Marybel Primary Care Provider [phone] Stef MICROSTRATEGY REPORTS DEVELOPER, MICROSTRATEGY REPORTS DEVELOPER-C Marybel Referring Provider Dr. Neil Barbour Attending Provider Dr. Neil Barbour Other Provider MARYBEL COLE Primary Care Unava ilmarisa DUARTE MD, DR HERNANDEZ Attending [facility] le MARYBEL COLE Primary Care Unava ilable MARYBEL COLE Attending Unava ilDr. Pancho Newton DO Referring Provider [phone] Dr. Pancho Sales DO Emergency Provider [place], [place] Primary Care Provider UnavailPancho Voss Referring Unavailable Pancho Sales Attending [place] Primary Care Unavailable MARYBEL COLE Primary Care Unava ilable RADHA FRANCIS DO Attending Unavailable MARYBEL COLE S Primary Care Unava ilable MARYBEL COLE Attending Unava ilable Medications Current Medications Medication Drug Class(es) Dates Sig (Normalized) Sig (Original) apple cider vinegar 600 mg oral capsule (2 sources) Start: 05-19-2021 take 1 capsule by mouth once daily Apple Cider Vinegar 600 mg capsule Active 600 mg PO DAILY May 19, 2021 12:00am ascorbic acid 250 mg oral tablet (2 sources) Vitamin C Start: 05-19-2021 take 1 tablet by mouth once daily Ascorbic Acid (Vitamin C) 250 mg tablet Active 250 mg PO DAILY May 19, 2021 12:00am atorvastatin 80 mg oral tablet (6 sources) HMG-CoA Reductase Inhibitor Start: 03-11-2025 atorvastatin 80 mg oral tablet Dose : 80 mg = 1 tab(s), Oral, qDay, # 90 tab(s), 3 Refill(s), Pharmacy: [facility], 172.5, cm, 03/11/25 15:20:00 EDT, Height, kg, 03/11/25 15:20:00 EDT, Dosing Weight Start Date: 03/11/25 Status: Ordered Quantity: 90.0 Unit: tab(s) Repeat number: 4 Start: 03-08-2022 atorvastatin 8 0 mg oral tablet Dose : 80 mg = 1 tab(s), Oral, qDay, # 90 tab(s), 3 Refill(s), Pharmacy: [facility], 173, cm, 12/13/22 9:59:00 EST, Height, kg, 12/13/22 9:59:00 EST, Dosing Weight Start Date: 04/23/23 Status: Ordered Quantity: 90.0 Unit: tab(s) Repeat number: 4 B-Complex With Vitamin C (Pierce per B Complex-Vitamin C) tablet (2 sources) Start: 05-19-2021 B-Complex With Vitamin C (Super B Complex-Vitamin C) tablet Active 1 {tbl} PO DAILY May 19, 2021 12:00am Start: 05-19-2021 take 1 tablet by shantell once daily B-Complex With Vitamin C (Super B Complex-Vitamin C) tablet Active 1 TABLET PO DAILY May 19, 2021 12:00am cholecalciferol 0.025 mg oral capsule (2 sources) Vitamin D Start: 05-19-2021 take 1 capsule by mouth once daily Cholecalciferol (Vitamin D3) 25 mcg (1,000 unit) capsule Active 25 ug PO DAILY May 19, 2021 12:00am cider vinegar oral tablets (4 sources) Start: 10-22-2019 cider vinegar oral tablets 0 Refill(s) Start Date: 10/22/19 Status: Ordered Repeat number: 1 Start: 10-22-2019 cider vinegar oral tablets 0 Refill(s) Start Date: 10/22/19 Status: Ordered empagliflozin 25 mg oral tablet (5 sources) Sodium-Glucose Cotransporter 2 Inhibitor Start: 03-11-2025 End: 03-06-2026 Jardiance 25 mg oral tablet Dose : 25 mg = 1 tab(s), Oral, qAM, # 90 tab(s), 3 Refill(s), Pharmacy: [facility], 172.5, cm, 03/11/25 15:20:00 EDT, Height, kg, 03/11/25 15:20:00 EDT, Dosing Weight Start Date: 03/11/25 Stop Date: 03/06/26 Status: Ordered Quantity: 90.0 Unit: tab(s) Repeat number: 4 Start: 12-13-2022 Jardiance 25 m g oral tablet Dose : 12.5 mg = 0.5 tab(s), Oral, qAM, 0 Refill(s) Start Date: 12/13/22 Status: Ordered Repeat number: 1 Start: 08-08-2022 take 1 tablet by shantell once daily Empagliflozin (Jardiance) 10 mg Tablet Active 10 mg PO DAILY August 08, 2022 12:00am Garlic (6 sources) Non-Standardized Food Allergenic Extract Start: 05-19-2021 take 1 capsule by mouth once daily Garlic 500 mg capsule Active 500 mg PO DAILY May 19, 2021 12:00am Start: 05-19-2021 take 500 mg by mouth once rosa y Garlic Active 500 MG PO DAILY May 19, 2021 12:00am Start: 07-02-2019 take 1 capsule by mouth once d aily garlic oral capsule Dose = 1 cap(s), Oral, Daily, 0 Refill(s) Start Date: 07/02/19 Status: Ordered Repeat number: 1 Start: 07-02-2019 take 1 capsule by mouth once d aily garlic oral capsule Dose = 1 cap(s), Oral, Daily, 0 Refill(s) Start Date: 07/02/19 Status: Ordered ibuprofen 800 mg oral tablet (4 sources) Nonsteroidal Anti-inflammatory Drug Start: 07-02-2019 take 1 tablet by mouth every eight hours ibuprofen 800 mg oral tablet TAKE ONE TABLET BY MOUTH EVERY 8 HOURS Start Date: 07/02/19 Status: Ordered Repeat number: 1 krill oil 500 mg oral capsule (2 sources) Start: 06-29-2022 take 1 capsule by mouth once daily Krill Oil 500 mg capsule Active 500 mg PO daily June 29, 2022 12:00am lisinopril 20 mg oral tablet (6 sources) Angiotensin Converting Enzyme Inhibitor Start: 03-11-2025 End: 03-06-2026 lisinopril 20 mg oral tablet Dose : 20 mg = 1 tab(s), Oral, qDay, TAKE 1 TABLET BY MOUTH ONCE DAILY, # 90 tab(s), 3 Refill(s), Pharmacy: [facility], 172.5, cm, 03/11/25 15:20:00 EDT, Height, kg, 03/11/25 15:20:00 EDT, Dosing Weight Start Date: 03/11/25 Stop Date: 03/06/26 Status: Ordered Quantity: 90.0 Unit: tab(s) Repeat number: 4 Start: 05-19-2021 End: 04-17-2024 lisinopril 20 mg oral tablet Dose : 20 mg = 1 tab(s), Oral, qDay, TAKE 1 TABLET BY MOUTH ONCE DAILY, # 90 tab(s), 3 Refill(s), Pharmacy: [facility], 173, cm, 12/13/22 9:59:00 EST, Height, kg, 12/13/22 9:59:00 EST, Dosing Weight Start Date: 04/23/23 Stop Date: 04/17/24 Status: Ordered Quantity: 90.0 Unit: tab(s) Repeat number: 4 lovastatin 40 mg oral tablet (3 sources) HMG-CoA Reductase Inhibitor Start: 06-07-2022 take 1 tablet by mouth once daily lovastatin 40 mg oral tablet TAKE 1 TABLET BY MOUTH ONCE DAILY Start Date: 06/07/22 Status: Ordered Start: 05-19-2021 take 1 tablet by shantell once daily Lovastatin 20 mg tablet Active 20 mg PO DAILY May 19, 2021 12:00am Octavio [...] Ordered metFORMIN hydrochloride 500 mg oral tablet (6 sources) Biguanide Start: 07-13-2024 End: 07-08-2025 metFORMIN 500 mg oral tablet (IR) Dose : 1,000 mg = 2 tab(s), Oral, BID, # 360 tab(s), 3 Refill(s), Pharmacy: [facility], 172.5, cm, 11/21/23 13:43:00 EST, Height, kg, 11/21/23 13:43:00 EST, Dosing Weight Start Date: 07/13/24 Stop Date: 07/08/25 Status: Ordered Quantity: 360.0 Unit: tab(s) Repeat number: 4 Start: 03-08-2022 End: 03-03-2023 metFORMIN 500 mg oral tablet (IR) Dose : 1,000 mg = 2 tab(s), Oral, BID, # 360 tab(s), 3 Refill(s), Pharmacy: [facility]12, 172.5, cm, 03/08/22 8:56:00 EDT, Height, kg, 03/08/22 8:56:00 EDT, Dosing Weight Start Date: 03/08/22 Stop Date: 03/03/23 Status: Ordered Start: 05-19-2021 take 1 tablet by shantell twice daily Metformin 1,000 mg tablet Active 1000 mg PO TWICE A DAY May 19, 2021 12:00am pioglitazone 45 mg oral tablet (6 sources) Peroxisome Proliferator Receptor alpha Agonist, Peroxisome Proliferator Receptor gamma Agonist, Thiazolidinedione Start: 03-08-2022 pioglitazone 45 mg oral tablet Dose : 45 mg = 1 tab(s), Oral, Daily, # 90 tab(s), 3 Refill(s), Pharmacy: [facility], 173, cm, 12/13/22 9:59:00 EST, Height, kg, 12/13/22 9:59:00 EST, Dosing Weight Start Date: 04/23/23 Status: Ordered Quantity: 90.0 Unit: tab(s) Repeat number: 4 Vitamin B Complex oral capsule (4 sources) Start: 07-02-2019 take 1 capsule by mouth once daily Vitamin B Complex oral capsule Dose = 1 cap(s), Oral, Daily, 0 Refill(s) Start Date: 07/02/19 Status: Ordered Repeat number: 1 Start: 07-02-2019 take 1 capsule by [facility] once daily Vitamin B Complex oral [...] Ordered vitamin e 90 mg oral capsule (6 sources) Start: 05-19-2021 take 1 capsule by mouth once daily Vitamin E 200 unit capsule Active 200 U PO DAILY May 19, 2021 12:00am Start: [...] sites, # 1 EA, 3 Refill(s), Pharmacy: [facility], 172.5, cm, 03/11/25 15:20:00 EDT, Height, kg, 03/11/25 15:20:00 EDT, Dosing Weight Start Date: 03/11/25 Status: Ordered Quantity: 1.0 Unit: EA Repeat number: 4 glipiZIDE 10 mg oral tablet (2 sources) Sulfonylurea Start: 05-19-2021 End: 06-29-2022 take 1 tablet by mouth once daily Glipizide 10 mg tablet Discontinued 10 mg PO DAILY May 19, 2021 12:00am June 29, 2022 12:50pm Mis Medication (2 sources) Start: 11-21-2023 Mis Medication insulin 10units q HS, [facility], 0 Refill(s), 71 Start Date: 11/21/23 Status: Ordered Repeat number: 1 [place]-3 Fatty Acids (Fish Oil Concentrate) 1,000 mg capsule (2 sources) Start: 05-19-2021 End: 06-29-2022 take 1 capsule by mouth once daily [place]-3 Fatty Acids (Fish Oil Concentrate) 1,000 mg capsule Discontinued 1000 mg PO DAILY May 19, 2021 12:00am June 29, 2022 12:49pm Start: 05-19-2021 End: 06-29-2022 take 1 capsule by mouth once daily [place]-3 Fatty Acids (Fish Oil Concentrate) 1,000 mg capsule Discontinued 1000 MG PO DAILY May 19, 2021 12:00am June 29, 2022 12:49pm Problems Active Problems Problem Classification Problem Date Documented Date Episodic/Chronic Administrative/social admission (1 source) Homeless 03-11-2025 Episodic Alcohol-related disorders (1 source) Alcohol abuse with intoxication, unspecified; Translations: [Alcohol abuse with intoxication, unspecified] Onset: 03-30-2025 Chronic Alcohol-related disorders (1 source) Alcohol intoxication; Translations: [Alcohol use, unspecified with intoxication, unspecified] 03-26-2025 Episodic Diabetes mellitus with complications (4 sources) Hyperglycemia due to type 2 diabetes mellitus; Translations: [Type 2 diabetes mellitus with hyperglycemia] Onset: 03-11-2025 Chronic Diabetes mellitus without complication (6 sources) Diabetes mellitus; Translations: [Type 2 diabetes mellitus without complications] Onset: 02-18-2025 06-07-2022 Chronic Disorders of lipid metabolism (6 sources) Hyperlipidemia; Translations: [Hypercholesterolemia ] 06-02-2020 Chronic Comment on above: ON MED E Codes: Fall (1 source) Accidental fall ; Translations: [Unspecified fall, initial encounter] 03-26-2025 Episodic Essential hypertension (2 sources) Hypertensive disorder; Translations: [Essential (primary) hypertension] 05-19-2021 Chronic Occlusion or stenosis of precerebral arteries (2 sources) Carotid artery stenosis; Translations: [Occlusion and stenosis of unspecified carotid artery] 05-19-2021 Chronic Other and unspecified benign neoplasm (2 sources) History of polyp of colon; Translations: [Personal history of colonic polyps] 05-19-2021 Episodic Other and unspecified benign neoplasm (1 source) Personal history of colonic polyps; Translations: [Personal history of colonic polyps] Episodic Other connective tissue disease (1 source) Recurrent falls ; Translations: [Repeated falls] Onset: 02-18-2025 Episodic Other connective tissue disease (1 source) Musculoskeletal test abnormal; Translations: [Other symptoms and signs involving the musculoskeletal system] Onset: 02-18-2025 Episodic Other nervous system disorders (2 sources) Ulnar neuropathy; Translations: [Lesion of ulnar nerve, unspecified upper limb] 06-29-2022 Chronic Other nervous system disorders (1 source) Abnormal gait; Translations: [Other abnormalities of gait and mobility] Onset: 02-18-2025 Episodic Other screening for suspected conditions (not mental disorders or infectious disease) (2 sources) Liver function tests abnormal; Translations: [Other specified abnormal findings of blood chemistry] 06-29-2022 Episodic Superficial injury; contusion (2 sources) Abrasion of upper limb 11-21-2023 Episodic Unclassified (3 sources) Patient encounter status 12-13-2022 Unclassified (1 source) Homelessness unspecified; Translations: [Homelessness unspecified] Onset: 02-18-2025 Past or Other Problems Problem Classification Problem Date Documented Date Episodic/Chronic Conditions associated with dizziness or vertigo (3 sources) Dizziness and giddiness; Translations: [Dizziness and giddiness] Onset: 02-18-2025 Episodic Other aftercare (1 source) 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; Translations: [Other prison (current) drug therapy] Onset: 02-18-2025 Episodic Other aftercare (1 source) prison (current) use of oral hypoglycemic drugs; Translations: [rodent exterminator (current) use of oral hypoglycemic drugs] Onset: 02-18-2025 Episodic Other aftercare (1 source) Encounter for therapeutic drug level monitoring; Translations: [Encounter for therapeutic drug level monitoring] Onset: 02-18-2025 Episodic Other connective tissue disease [...] of gait and mobility] Onset: 02-18-2025 Episodic Screening and history of mental health and substance abuse codes (1 source) Personal history of nicotine dependence; Translations: [Personal history of nicotine dependence] Onset: 02-18-2025 Episodic Results Test Name Value Interpretation Reference Range Facility Basic Metabolic Profile (BMP )on 03-26-2025 CO2 [Moles/Vol] 3.2 mmol/L Invalid Interpretation Code 21.0-32.0 [place] Comment on above: Result Comment: Crit ical Result(s) Called ETEAL at: 0036 by: HIRAL??Results read back by same. Performed By: #### L 501.9100, L501.5200, L500.2500, L501.3620, L100.0100, L505.5000 #### [facility] [address] [place], [address] [place] Comment on above: Performed By: #### L 501.9100, L501.5200, L500.2500, L501.3620, L100.0100, L505.5000 #### [facility] [address] [place], [place], [address] Beta-Hydroxbytyrateon 2024 BETA-HYDROXYBUT 0.8 mmol/L High 0.0-0.3 [place] Comment on above: Performed By: #### L 501.9100, L501.5200, L500.2500, L501.3620, L100.0100, L505.5000 #### [facility] [address] [place], [address] Beta-hydroxybutyrateOrdered By: Pancho Sales on 03-26-2025 Beta hydroxybutyrate [Mass/Vol] 0.8 mmol/L High 0.0-0.3 [facility] CO2 (BldV) [Moles/Vol]Ordere d By: Pancho Sales on 03-26-2025 CO2 [Moles/Vol] 22 mmol/L Low 23-33 [facility] Summary on 03-26-2025 Emergency Department Summary [facility] Medical Records Department [address] [place] [address] Emergency Department Summary 03/26/25 MR#: [id number] Acct: [id number] Name: TARAH MCALLISTER Rep #: [id number] : 1960 64 From: Pancho Sales DO PCP: [facility] Status:REG ER Location: ED HPI History of Present Illness Chief Complaint: Fall Informant: patient Narrative Narrative: Patient is a 64-year-old male with past medical history of hypertension and diabetes. He states that this evening he was drinking alcohol and he was walking back to the homeless half[place]way with a female. He states that he lost his balance and fell but could not get back up following the fall. He denies striking his head or any loss of consciousness. He denies any history of bleeding disorder or blood thinner use. He states that the female he was walking with was able to get help and EMS was called because he could not get up. Secondary to this he was brought into the ER for evaluation. The patient states he fell simply because he lost his balance and tripped and denies any palpitations or syncope. [facility] Medical History Wears glasses Alcohol use Former smoker Diabetes High cholesterol Carotid stenosis HTN (hypertension) Home Medications ???Medication ???Instructions ???Recorded ???Last Taken ???Type B-complex with vitamin C (Super B 1 tab PO DAILY 05/19/21 Unknown H istory Complex-Vitamin C tablet) apple cider vinegar 600 mg capsule 600 mg PO DAILY 05/19/21 Unknown History ascorbic acid (vitamin C) 250 mg 250 mg PO DAILY 05/19/21 Unknown H istory tablet cholecalciferol (vitamin D3) 25 25 mcg PO DAILY 05/19/21 Unknown H istory mcg (1,000 unit) capsule garlic 500 mg capsule 500 mg PO DAILY 05/19/21 Unknown H istory lisinopril 20 mg tablet 20 mg PO DAILY 05/19/21 08/10/22 H istory lovastatin 20 mg tablet 20 mg PO DAILY 05/19/21 Unknown Hi story metformin 1,000 mg tablet 1,000 mg PO BID 05/19/21 Unknown H istory vitamin E 200 unit capsule 200 unit PO DAILY 05/19/21 Unknown History atorvastatin 80 mg tablet 80 mg PO QHS 06/29/22 Unknown Hist ory krill oil 500 mg capsule 500 mg PO QDAY 06/29/22 Unknown Hi story pioglitazone 45 mg tablet 45 mg PO DAILY 06/29/22 Unknown Hi story empagliflozin 10 mg tablet 10 mg PO DAILY 08/08/22 Unknown Hi story (Jardiance) Allergy/AdvReac Type Severity Reaction Status Date / Time No Known Allergies Allergy Verified 03/25/25 22:00 Family History (Updated 06/29/22 @ 12:47 by Dagmar Maxwell) Mother Colon cancer Father Diabetes Hypertension Cancer renal Surgical History History of colonoscopy ( 2012) History of right-sided carotid endarterectomy Social History Smoking Status: Former smoker alcohol intake: current alcohol intake frequency: a few times a week ROS ROS ED Constitutional Constitutional ED: Denies chills or fever(s) Eyes Eyes: Denies blurry vision or change in vision ENT ENT ED: Denies sore throat Cardiovascular Cardiovascular: Reports other Details: Negative syncope ; Denies chest pain, palpitations or racing heartbeat Respiratory/Chest Respiratory/Chest: Denies cough or dyspnea Gastrointestinal Gastrointestinal: Denies abdominal pain, diarrhea, nausea or vomiting Genitourinary Genitourinary ED: Denies dysuria Musculoskeletal Musculoskeletal: Reports other Details: Patient reports pain in bilateral shoulders with history of arthritis and states this is chronic in nature ; Denies back pain or neck pain Integumentary Denies rash Neurologic Neurologic: Denies headache(s) or paresthesias Hematologic/Lymphati c Hematologic/Lymphati c: Denies easy bleeding or easy bruising EXAM Physical Exam Const Vital Signs: 03/25/25 22:00 03/25/25 22:45 03/26/25 00:00 Temperature 98.1 F Temperature Source Oral Pulse Rate 98 86 Respiratory Rate 18 16 Respiratory Effort Normal Respiratory Depth Normal Respiratory Pattern Normal Blood Pressure 115/65 91/64 Blood Pressure Mean 81 73 Pulse Ox 100 95 Oxygen Delivery Method Room Air Room Air Room Air Positive well nourished and well developed General Appearance ED: well developed; Negative for pallor HEENT HEENT Narrative: Normocephalic atraumatic No signs of depressed or basilar skull fracture Eyes PERRL and EOMs intact bilaterally General Eye ED: Negative for scleral icterus Neck supple Neck Narrative: No bony deformity or step-off of the cervical spine No midline tenderness to palpation Chest Wall palpation of chest normal Chest Narrative: No pain on palpation of the chest wall No bony deformity or subcut (more content not included)... Normal [place] No Panel InformationOrdered By: Pancho Sales on 03-26-2025 Blood Gas Sample Site Not entered [facility] Blood Gas Specimen Type JADE W [facility] Oxygen Delivery Device Room Air [facility] Urinalysis, Completeon 03-26 RBC 0-5 SEEN Normal 0-5 [place] Comment on above: Order Comment: CLEAN CATCH Performed By: #### L 501.9100, L501.5200, L500.2500, L501.3620, L100.0100, L505.5000 #### [facility] [address] [place], [place], [id number] BACTERIA 0 SEEN Normal None Seen [place] Comment on above: Order Comment: CLEAN CATCH Performed By: #### L 501.9100, L501.5200, L500.2500, L501.3620, L100.0100, L505.5000 #### [facility] [address] [place], [address] EPI,SQUAMOUS 0 SEEN Normal 0-5 [place] Comment on above: Order Comment: CLEAN CATCH Performed By: #### L 501.9100, L501.5200, L500.2500, L501.3620, L100.0100, L505.5000 #### [facility] [address] [place], [address] Mucus Ql (Urine sed) 0 SEEN Normal [facility] Comment on above: Order Comment: CLEAN CATCH Performed By: #### L 501.9100, L501.5200, L500.2500, L501.3620, L100.0100, L505.5000 #### [facility] [address] [place], [address] WBC 0 SEEN Normal 0-5 [place] Comment on above: Order Comment: CLEAN CATCH Performed By: #### L 501.9100, L501.5200, L500.2500, L501.3620, L100.0100, L505.5000 #### [facility] [address] [place], [address] Urine Drug Screen (VISTA)on 03-26-2025 AMPHETAMINES Negative Normal <1000 ng/mL [place] Comment on above: Performed By: #### L 501.9100, L501.5200, L500.2500, L501.3620, L100.0100, L505.5000 #### [facility] [address] [place], [address] BARBITIURATES Negative Normal < 200 ng/mL [place] Comment on above: Performed By: #### L 501.9100, L501.5200, L500.2500, L501.3620, L100.0100, L505.5000 #### [facility] [address] [place], [address] BENZODIAZIPINE Negative Normal < 200 ng/mL [place] Comment on above: Performed By: #### L 501.9100, L501.5200, L500.2500, L501.3620, L100.0100, L505.5000 #### [facility] [address] [place], [facility] BUP Ur Drug Scr Negative Normal < 200 ng/mL [place] Comment on above: Performed By: #### L 501.9100, L501.5200, L500.2500, L501.3620, L100.0100, L505.5000 #### [facility] [address] [place], [facility] COCAINE Negative Normal < 300 ng/mL [place] Comment on above: Performed By: #### L 501.9100, L501.5200, L500.2500, L501.3620, L100.0100, L505.5000 #### [facility] [address] [place], [facility] Fentanyl Negative Normal [place] Comment on above: Performed By: #### L 501.9100, L501.5200, L500.2500, L501.3620, L100.0100, L505.5000 #### [facility] [address] [place], [facility] METHADONE Negative Normal < 300 ng/mL [place] Comment on above: Performed By: #### L 501.9100, L501.5200, L500.2500, L501.3620, L100.0100, L505.5000 #### [facility] [address] [place], [facility] OPIATES Negative Normal < 300 ng/mL [place] Comment on above: Performed By: #### L 501.9100, L501.5200, L500.2500, L501.3620, L100.0100, L505.5000 #### [facility] [address] [place], [address] OXYCODONE Negative Normal < 100 ng/mL [facility] Comment on above: Performed By: #### L 501.9100, L501.5200, L500.2500, L501.3620, L100.0100, L505.5000 #### [facility] [address] [place], [address] PCP Negative Normal < 25 ng/mL [facility] Comment on above: Performed By: #### L 501.9100, L501.5200, L500.2500, L501.3620, L100.0100, L505.5000 #### [facility] [address] [place], [address] THC Negative Normal < 50 ng/mL [facility] Comment on above: Performed By: #### L 501.9100, L501.5200, L500.2500, L501.3620, L100.0100, L505.5000 #### [facility] [address] [place], [address] Venous Blood Gason 5 Blood Gas Type JADE Normal [place] Comment on above: Performed By: #### L 501.9100, L501.5200, L500.2500, L501.3620, L100.0100, L505.5000 #### [facility] [address] [place], [address] CO2 [Moles/Vol] 22 mmol/L Low 23-33 [place] Comment on above: Performed By: #### L 501.9100, L501.5200, L500.2500, L501.3620, L100.0100, L505.5000 #### [facility] [address] [place], [address] HCO3 (Bld) [Moles/Vol] 21 mmol/L Low 22-26 [facility] Comment on above: Performed By: #### L 501.9100, L501.5200, L500.2500, L501.3620, L100.0100, L505.5000 #### [facility] [address] [place], [address] O2 Delivery Dev Room Air [facility] Comment on above: Performed By: #### L 501.9100, L501.5200, L500.2500, L501.3620, L100.0100, L505.5000 #### [facility] [address] [place], [address] SITE Not entered [facility] Comment on above: Performed By: #### L 501.9100, L501.5200, L500.2500, L501.3620, L100.0100, L505.5000 #### [facility] [address] [place], [address] VBG BE -5 mmol/L Low -1.0-3.5 [facility] Comment on above: Performed By: #### L 501.9100, L501.5200, L500.2500, L501.3620, L100.0100, L505.5000 #### [facility] [address] [place], [address] VBG pCO2 41.0 mmHg Normal 41-51 [facility] Comment on above: Performed By: #### L 501.9100, L501.5200, L500.2500, L501.3620, L100.0100, L505.5000 #### [facility] [address] [place], [address] VBG pH 7.32 Normal 7.32-7.42 [facility] Comment on above: Performed By: #### L 501.9100, L501.5200, L500.2500, L501.3620, L100.0100, L505.5000 #### [facility] [address] [place], [address] VBG PO2 81 mmHg High 25-40 [facility] Comment on above: Performed By: #### L 501.9100, L501.5200, L500.2500, L501.3620, L100.0100, L505.5000 #### [facility] [address] [place], [address] VBG SO2 95 High 50-70 [facility] Comment on above: Performed By: #### L 501.9100, L501.5200, L500.2500, L501.3620, L100.0100, L505.5000 #### [facility] [address] [place], [address] Venous blood base excess silva surementOrdered By: Pancho Sales on 03-26-2025 Base excess Calc (BldV) [Moles/Vol] -5 mmol/L Low -1.0-3.5 [facility] Venous blood bicarbonate silva surementOrdered By: Pancho Sales on 03-26-2025 HCO3 (Bld) [Moles/Vol] 21 mmol/L Low 22-26 [facility] Venous blood oxygen saturati on measurementOrdered By: Pancho Sales on 03-26-2025 Oxygen saturation in Blood 95 % High 50-70 [facility] Venous blood pH measurementO rdered By: Pancho Sales on 03-26-2025 pH (BldV) 7.32 [pH] 7.32-7.42 [facility] Venous blood partial pressur e of carbon dioxide measurementOrdered By: Pancho Sales on 03-26-2025 CO2 (BldV) [Partial pressure] 41.0 mm[Hg] 41-51 [facility] Venous blood partial pressur e of oxygen measurementOrdered By: Pancho Sales on 03-26-2025 Oxygen (BldV) [Partial pressure] 81 mm[Hg] High 25-40 [facility] 12 Lead EKGon 03-25-2025 12 Lead EKG [facility] Cardiovascular Services [address] [place] [address] 12 Lead EKG 03/25/25 2238 MR#: [id number] Acct: [id number] Name: TARAH MCALLISTER Rep #: [id number] : 1960 64 From: Zeenat Lane MD Attending Dr: Status: DEP ER Ordering Dr: Pancho Sales DO Date: 03/25/25 Location: ED Sex: M C Admitted: Test Reason : DYSRHYTHMIA Blood Pressure : */* mmHG Vent. Rate : 84 BPM Atrial Rate : 84 BPM P-R Int : 174 ms QRS Dur : 90 ms QT Int : 364 ms P-R-T Axes : 48 -53 27 degrees QTcB Int : 430 ms Normal sinus rhythm Left anterior fascicular block Anterolateral infarct , age undetermined Abnormal ECG Confirmed by OCTAVIO MCRAE, ARVIN ([id number]), society editor SEBASTIAN PHELPS ([id number]) on 03/29/2025 6:49:39 AM Referred By: Pancho Sales Confirmed By: ARVIN LANE MD 03/29/[address] MD CC: Pancho Sales DO; [facility] Signed Normal [facility] Absolute lymphocyte countOrd ered By: Pancho Sales on 03-25-2025 Lymphocytes Auto (Unsp spec) [#/Vol] 2.21 10*3/uL 0.83-4.51 [facility] Absolute neutrophil countOrd ered By: Pancho Sales on 03-25-2025 Neutrophils (Bld) [#/Vol] 5.2 10*3/uL 2.0-7.7 [facility] Alcohol, Blood (Medical)-Ser umon 03-25-2025 SERUM ETOH 199.0 mg/dL High <=10.0 [facility] Comment on above: Result Comment: This test is for medical purposes only. The legal definition of intoxication varies according to local law. Performed By: #### L 501.9100, L501.5200, L500.2500, L501.3620, L100.0100, L505.5000 #### [facility] [address] [place], [place], [address] Amphetamine detection with 1 000 ng/mL as cutoffOrdered By: Pancho Sales on 03-25-2025 Amphetamines Screen method >1000 ng/mL Ql (U) Negative < 200 ng/mL [facility] Anion gap in Serum or Plasma Ordered By: Pancho Sales on 03-25-2025 Anion gap [Moles/Vol] 35 mmol/L High 5-15 [facility] Automated lymphocyte count a s percentage of total leukocytesOrdered By: Pancho Sales on 03-25-2025 Lymphocytes/100 WBC Auto (Unsp spec) 26.5 % 19-41 [facility] BUN/creatinine ratioOrdered By: Pancho Sales on 03-25-2025 Urea nitrogen/Creatinine [Mass ratio] 8.5 mg/mg Low 10-20 [facility] Basophil percentageOrdered B y: Pancho Sales on 03-25-2025 Basophils/100 WBC (Bld) 0.7 % 0-1 [facility] Bilirubin Test strip Ql (U)O rdered By: Pancho Sales on 03-25-2025 Bilirubin Ql (U) Negative Negative [facility] Brain/Head without Contrasto n 03-25-2025 Brain/Head without Contrast [facility] Imaging Services [address] [place], [place] [address] Brain/Head without Contrast MR#: [id number] Acct: [id number] Name: TARAH MCALLISTER Rep #: [id number] : 1960 M 64 From: Dev Patel PCP: [facility] Status: REG ER Study: Brain/Head without Contrast Date of Exam: 03/14 Exam# [id number] Ordering Dr: Pancho Sales DO PROCEDURE: BRAIN/HEAD WITHOUT CONTRAST 03/25/2025 REASON FOR EXAM: FALL TECHNIQUE: Head CT without intravenous contrast. Coronal and Sagittal reconstruction series were provided. One or more dose reduction techniques were used (e.g., Automated exposure control, adjustment of the mA and/or kV according to patient size, use of iterative reconstruction technique. COMPARISON: None FINDINGS: No evidence of acute intracranial hemorrhage, midline shift or mass effect. No definite CT evidence of acute territorial cortical infarction. No hydrocephalus. Mild age-related atrophy. No depressed calvarial fracture. Mild bilateral maxillary mucosal thickening. CT/Brain/Head without Contrast IMPRESSION: No acute intracranial abnormality. Reading Location: [facility] CC: Pancho Sales DO; [facility] Veterinarian Poultry: Signed Normal [facility] CBC W/Diff, Automatedon Absolute Lymph 2.21 X10 3/uL Normal 0.83-4.51 [facility] Comment on above: Performed By: #### L 501.9100, L501.5200, L500.2500, L501.3620, L100.0100, L505.5000 #### [facility] [address] [place], [address] Absolute Neut 5.2 X10 3/uL Normal 2.0-7.7 [facility] Comment on above: Performed By: #### L 501.9100, L501.5200, L500.2500, L501.3620, L100.0100, L505.5000 #### [facility] [address] [place], [address] Basophils/100 WBC (Bld) 0.7 % Normal 0-1 [facility] Comment on above: Performed By: #### L 501.9100, L501.5200, L500.2500, L501.3620, L100.0100, L505.5000 #### [facility] [address] [place], [address] Eosinophils/100 WBC (Bld) 1.7 % Normal 0-5 [facility] Comment on above: Performed By: #### L 501.9100, L501.5200, L500.2500, L501.3620, L100.0100, L505.5000 #### [facility] [address] [place], [address] Erythrocyte distribution width (RBC) [Ratio] 11.9 % Normal 11.6-14.6 [facility] Comment on above: Performed By: #### L 501.9100, L501.5200, L500.2500, L501.3620, L100.0100, L505.5000 #### [facility] [address] [place], [address] Hematocrit (Bld) [Volume fraction] 38.4 % Low 40-54 [facility] Comment on above: Performed By: #### L 501.9100, L501.5200, L500.2500, L501.3620, L100.0100, L505.5000 #### [facility] [address] [place], [address] Hemoglobin (Bld) [Mass/Vol] 13.4 g/dL Normal 13.0-16.5 [facility] Comment on above: Performed By: #### L 501.9100, L501.5200, L500.2500, L501.3620, L100.0100, L505.5000 #### [facility] [address] [place], [address] IG% 0.700 Normal 0.0-0.9 [facility] Comment on above: Result Comment: IG% - Immature Granulocytes (promyelocytes, myelocytes and metamyelocytes) > 1% indicates that a LEFT SHIFT is Present. Performed By: #### L 501.9100, L501.5200, L500.2500, L501.3620, L100.0100, L505.5000 #### [facility] [address] [place], [address] Lymphocytes/100 WBC (Bld) 26.5 % Normal 19-41 [facility] Comment on above: Performed By: #### L 501.9100, L501.5200, L500.2500, L501.3620, L100.0100, L505.5000 #### [facility] [address] [place], [address] MCH (RBC) [Entitic mass] 30.3 pg Normal 27.0-32.0 [facility] Comment on above: Performed By: #### L 501.9100, L501.5200, L500.2500, L501.3620, L100.0100, L505.5000 #### [facility] [address] [place], [address] MCHC (RBC) [Mass/Vol] 34.9 g/dL Normal 32-36 [facility] Comment on above: Performed By: #### L 501.9100, L501.5200, L500.2500, L501.3620, L100.0100, L505.5000 #### [facility] [address] [place], [address] MCV (RBC) [Entitic vol] 86.9 fL Normal 80-94 [facility] Comment on above: Performed By: #### L 501.9100, L501.5200, L500.2500, L501.3620, L100.0100, L505.5000 #### [facility] [address] [place], [address] Monocytes/100 WBC (Bld) 7.4 % Normal 0-10 [facility] Comment on above: Performed By: #### L 501.9100, L501.5200, L500.2500, L501.3620, L100.0100, L505.5000 #### [facility] [address] [place], [address] Neutrophils/100 WBC (Bld) 63.0 % Normal 47-70 [facility] Comment on above: Performed By: #### L 501.9100, L501.5200, L500.2500, L501.3620, L100.0100, L505.5000 #### [facility] [address] [place], [address] Nucleated RBC (Bld) [#/Vol] 0 10*3/uL Normal 0-5 [facility] Comment on above: Performed By: #### L 501.9100, L501.5200, L500.2500, L501.3620, L100.0100, L505.5000 #### [facility] [address] [place], [address] Platelet mean volume (Bld) [Entitic vol] 11.0 fL Normal 6.2-12.0 [facility] Comment on above: Performed By: #### L 501.9100, L501.5200, L500.2500, L501.3620, L100.0100, L505.5000 #### [facility] [address] [place], [address] Platelets (Bld) [#/Vol] 215 10*3/uL Normal 150-450 [facility] Comment on above: Performed By: #### L 501.9100, L501.5200, L500.2500, L501.3620, L100.0100, L505.5000 #### [facility] [address] [place], [address] RBC (Bld) [#/Vol] 4.42 10*6/uL Low 4.6-6.2 [facility] Comment on above: Performed By: #### L 501.9100, L501.5200, L500.2500, L501.3620, L100.0100, L505.5000 #### [facility] [address] [place], [address] RDW SD 37.6 fl Normal 35.1-43.9 [facility] Comment on above: Performed By: #### L 501.9100, L501.5200, L500.2500, L501.3620, L100.0100, L505.5000 #### [facility] [address] [place], [address] WBC (Bld) [#/Vol] 8.3 10*3/uL Normal 4.4-11.0 [facility] Comment on above: Performed By: #### L 501.9100, L501.5200, L500.2500, L501.3620, L100.0100, L505.5000 #### [facility] [address] [place], [address] CPK Total, Creatine Kinaseon 03-25-2025 CPK TOTAL 55 U/L Normal 24-195 [facility] Comment on above: Performed By: #### L 501.9100, L501.5200, L500.2500, L501.3620, L100.0100, L505.5000 #### [facility] [address] [facility] [address] [address] [place], [address] Carbon dioxide, total [Moles /volume] in Central venous bloodOrdered By: Pancho Sales on 03-25-2025 CO2 [Moles/Vol] 3.2 mmol/L Low 21.0-32.0 [facility] Comment on above: Critical Result(s) C alled ETEAL at: 0036 by: HIRAL Results read back by same. Chloride assayOrdered By: Melanie Sales on 03-25-2025 Chloride [Moles/Vol] 96 mmol/L Low 98-108 [facility] Eosinophil percentageOrdered By: Pancho Sales on 03-25-2025 Eosinophils/100 WBC (Bld) 1.7 % 0-5 [facility] Erythrocyte distribution wid th ratioOrdered By: Pancho Sales on 03-25-2025 Erythrocyte distribution width (RBC) [Ratio] 11.9 % 11.6-14.6 [facility] Erythrocyte distribution wid th standard deviationOrdered By: Pancho Sales on 03-25-2025 Erythrocyte distribution width (RBC) [Ratio] 37.6 fl 35.1-43.9 [facility] Glomerular filtration rate ( GFR) estimation/1.73 sq m using serum, plasma, or whole bOrdered By: Pancho Sales on 03-25-2025 GFR/1.73 sq M.predicted among non-blacks MDRD (S/P/Bld) [Vol rate/Area] 101 mL/min/{1.73_m2} >60 [facility] Comment on above: mL/min/1.73m2 CKD-EP I Creatinine Equation (2020) Hematocrit Auto (Bld) [Volum e fraction]Ordered By: Pancho Sales on 03-25-2025 Hematocrit (Bld) [Volume fraction] 38.4 % Low 40-54 [facility] Hemoglobin measurementOrdere d By: Pancho Sales on 03-25-2025 Hemoglobin (Bld) [Mass/Vol] 13.4 g/dL 13.0-16.5 [facility] Immature granulocytes/100 WB C Auto (Bld)Ordered By: Pancho Sales on 03-25-2025 Immature granulocytes/100 WBC (Bld) 0.700 % 0.0-0.9 [facility] Comment on above: IG% - Immature Granu locytes (promyelocytes, myelocytes and metamyelocytes) > 1% indicates that a LEFT SHIFT is Present. Ketones Test strip Ql (U)Ord ered By: Pancho Sales on 03-25-2025 Ketones Ql (U) Negative Negative [facility] MCV (mean corpuscular volume ) determinationOrdered By: Pancho Sales on 03-25-2025 MCV (RBC) [Entitic vol] 86.9 fL 80-94 [facility] Magnesiumon 03-25-2025 Magnesium [Mass/Vol] 2.0 mg/dL Normal 1.5-2.2 [facility] Comment on above: Performed By: #### L 501.9100, L501.5200, L500.2500, L501.3620, L100.0100, L505.5000 #### [facility] [address] [place], [address] Magnesium measurement (mass/ volume)Ordered By: Pancho Sales on 03-25-2025 Magnesium (Unsp spec) [Mass/Vol] 2.0 mg/dL 1.5-2.2 [facility] Mean corpuscular hemoglobin (MCH) determinationOrdered By: Pancho Sales on 03-25-2025 MCH (RBC) [Entitic mass] 30.3 pg 27.0-32.0 [facility] Mean corpuscular hemoglobin concentration (MCHC) determinationOrdered By: Pancho Sales on 03-25-2025 MCHC (RBC) [Mass/Vol] 34.9 g/dL 32-36 [facility] Mean platelet volume determi nationOrdered By: Pancho Sales on 03-25-2025 Platelet mean volume (Bld) [Entitic vol] 11.0 fL 6.2-12.0 [facility] Microscopic analysis of urin e for red blood cells (RBC)Ordered By: Pancho Sales on 03-25-2025 Microscopic analysis of urine for red blood cells (RBC) 0-5 SEEN /hpf 0-5 [facility] Monocyte percentageOrdered B y: Pancho Sales on 03-25-2025 Monocytes/100 WBC (Bld) 7.4 % 0-10 [facility] Mucus LM Ql (Urine sed)Order ed By: Pancho Sales on 03-25-2025 Mucus Ql (Urine sed) 0 SEEN /hpf [facility] Neutrophil percentageOrdered By: Pancho Sales on 03-25-2025 Neutrophils/100 WBC (Bld) 63.0 % 47-70 [facility] Nitrite Test strip Ql (U)Ord ered By: Pancho Sales on 03-25-2025 Nitrite Ql (U) Negative Negative [facility] No Panel InformationOrdered By: Pancho Sales on 03-25-2025 Urine Buprenorphine Qualitative Negative < 200 ng/mL [facility] Urine Oxycodone Screen Negative < 100 ng/mL [facility] Nucleated red blood cell per centageOrdered By: Pancho Sales on 03-25-2025 Nucleated RBC/100 WBC (Bld) [Ratio] 0 % 0-5 [facility] Pelvis 1 or 2 Viewson 2024 Pelvis 1 or 2 Views [facility] Imaging Services [address] [place] [address] Pelvis 1 or 2 Views MR#: [id number] Acct: [id number] Name: TARAH MCALLISTER Rep #: [id number] : 1960 M 64 From: Dev Patel PCP: [facility] Status: REG ER Study: Pelvis 1 or 2 Views Date of Exam: 03/25/25 Exam# [id number] Ordering Dr: Pancho Sales DO PROCEDURE: PELVIS 1 OR 2 VIEWS 03/25/2025 REASON FOR EXAM: FALL TECHNIQUE: 1 view(s) of the pelvis. COMPARISON: None FINDINGS: See impression RAD/Pelvis 1 or 2 Views IMPRESSION: Negative for acute displaced fracture or malalignment. Reading [facility] CC: Pancho Sales DO; [facility] Veterinarian Poultry: Signed Normal [facility] Platelet countOrdered By: Melanie Sales on 03-25-2025 Platelets (Bld) [#/Vol] 215 10*3/uL 150-450 [facility] Potassium measurement (mass/ volume)Ordered By: Pancho Sales on 03-25-2025 Potassium (Unsp spec) [Mass/Vol] 3.5 mmol/L 3.3-5.1 [facility] Protein Test strip Ql (U)Ord ered By: Pancho Sales on 03-25-2025 Protein Ql (U) 15 mg/dl High Negative [facility] Quantitative urine opiates m easurementOrdered By: Pancho Sales on 03-25-2025 Opiates Ql (U) Negative < 300 ng/mL [facility] RBC Auto (Bld) [#/Vol]Ordere d By: Pancho Sales on 03-25-2025 RBC (Bld) [#/Vol] 4.42 10*6/uL Low 4.6-6.2 [facility] Screening urine fentanyl silva surementOrdered By: Pancho Sales on 03-25-2025 fentaNYL Screen Ql (U) Negative [facility] Serum creatinine measurement (mass/volume)Ordered By: Pancho Sales on 03-25-2025 Creatinine [Mass/Vol] 0.77 mg/dL 0.70-1.20 [facility] Serum glucose measurement (m ass/volume)Ordered By: Pancho Sales on 03-25-2025 Glucose [Mass/Vol] 249 mg/dL High 70-99 [facility] Serum or plasma calcium srinivasan urement (mass/volume)Ordered By: Pancho Sales on 03-25-2025 Calcium [Mass/Vol] 9.4 mg/dL 7.6-11.0 [facility] Serum or plasma creatine kin ase activityOrdered By: Pancho Sales on 03-25-2025 CK [Catalytic activity/Vol] 55 U/L 24-195 [facility] Serum or plasma ethanol srinivasan urement (mass/volume)Ordered By: Pancho Sales on 03-25-2025 Ethanol [Mass/Vol] 199.0 mg/dL High <10.1 [facility] Comment on above: This test is for med ical purposes only. The legal definition of intoxication varies according to local law. Serum or plasma urea nitroge n measurement (mass/volume)Ordered By: Pancho Sales on 03-25-2025 Urea nitrogen [Mass/Vol] 7 mg/dL 4-19 [facility] Sodium levelOrdered By: Hector Sales on 03-25-2025 Sodium [Moles/Vol] 135 mmol/L 133-145 [facility] Spine Cervical without Contr ason 03-25-2025 Spine Cervical without Contras [facility] Imaging Services [address] [place], [place] [address] Spine Cervical without Contras MR#: [id number] Acct: [id number] Name: TARAH MCALLISTER Rep #: [id number] : 1960 M 64 From: Dev Patel [facility]CP: [facility] Status: REG ER Study: Spine Cervical without Contras Date of Exam: 0 03/25/25 Exam# [id number] Ordering Dr: Pancho Sales DO PROCEDURE: SPINE CERVICAL WITHOUT CONTRAS 03/25/2025 REASON FOR EXAM: FALL TECHNIQUE: Cervical spine CT without contrast. Coronal and Sagittal reconstruction series were provided. One or more dose reduction techniques were used (e.g., Automated exposure control, adjustment of the mA and/or kV according to patient size, use of iterative reconstruction technique COMPARISON: None FINDINGS: Vertebral body heights are within normal limits. Negative for acute fracture or traumatic subluxation. Moderate degenerative changes from C5 through T1. No paraspinal mass. Bilateral carotid artery calcifications. Lung apices are clear. CT/Spine Cervical without Contras IMPRESSION: No acute osseous abnormality. Reading Location[facility] CC: Pancho Sales DO; [facility] Veterinarian Poultry: Signed Normal [facility] Squamous epithelial cells de tection in urine sediment by light microscopyOrdered By: Pancho Sales on 03-25-2025 Epithelial cells.squamous LM Ql (Urine sed) 0 SEEN /hpf 0-5 [facility] Urine benzodiazepine levelOr dered By: Pancho Sales on 03-25-2025 Benzodiazepines Ql (U) Negative < 200 ng/mL [facility] Urine clarityOrdered By: Michael Sales on 03-25-2025 Clarity (U) Clear Clear [facility] Urine cocaine levelOrdered B y: Pancho Sales on 03-25-2025 Cocaine Ql (U) Negative < 300 ng/mL [facility] Urine color determinationOrd ered By: Pancho Sales on 03-25-2025 Color (U) Yellow Yellow [facility] Urine [id number] abinol (THC) measurementOrdered By: Pancho Sales on 03-25-2025 Cannabinoids Screen Ql (U) Negative < 50 ng/mL [facility] Urine glucose detectionOrder ed By: Pancho Saels on 03-25-2025 Glucose Ql (U) 1000 mg/dl High Normal [facility] Urine leukocyte esterase det ection by dipstickOrdered By: Pancho Sales on 03-25-2025 Leukocyte esterase Test strip Ql (U) Negative Negative [facility] Urine pHOrdered By: Pancho luciano on 03-25-2025 pH (U) 6.0 [pH] 5.0 - 8.0 [facility] Urine phencyclidine (PCP) de tectionOrdered By: Pancho Sales on 03-25-2025 Phencyclidine Ql (U) Negative < 25 ng/mL [facility] Urine sediment bacteria coun t by microscopy (number/high power field)Ordered By: Pancho Sales on 03-25-2025 Bacteria LM.HPF (Urine sed) [#/Area] 0 /[HPF] None Seen [facility] Urine specific gravity measu rementOrdered By: Pancho Sales on 03-25-2025 Specific gravity (U) [Rel density] 1.005 1.002-1.030 [facility] Urine urobilinogen measureme ntOrdered By: Pancho Sales on 03-25-2025 Urobilinogen Ql (U) Normal mg/dl Normal [facility] White blood cell (WBC) count Ordered By: Pancho Sales on 03-25-2025 WBC (Bld) [#/Vol] 8.3 10*3/uL 4.4-11.0 [facility] White blood cell countOrdere d By: Pancho Sales on 03-25-2025 White blood cell count 0 SE[facility]5 [facility] Creatinine 34.3 mg/dL Low 40.0-278.0 [facility] Comment on above: Performed By: #### M ALBR #### [address] [address] U Microalb 24.0 mg/L Normal [facility] Comment on above: Performed By: #### M ALBR #### [address] [address] U Ratio Alb/Cre 70 mg/G High 0-30 [facility] Comment on above: Performed By: #### M ALBR #### [address] [address] LABORATORYOrdered By: Jennifer Winter on 03-11-2025 Albumin DL <= 20 mg/L (U) [Mass/Vol] 24.0 mg/L Invalid Interpretation Code AO ADM SS Albumin/Creatinine DL <= 20 mg/L (U) [Mass ratio] 70 mg/G High 0 - 30 mg/G AO Chemistry S Creatinine (U) [Mass/Vol] 34.3 mg/dL Low 40.0 - 278.0 mg/dL AO ADM SS .Auto Diffon 02-18-2025 Basophil, Absolute 0.1 10 3/mcL Normal 0.0-0.3 [facility] Comment on above: Performed By: #### A DIFF, MDW, ANEU, CMP, CBC, GFR #### [address] [address] Basophils/100 WBC (Bld) 0.9 % Normal 0.0-2.5 [facility] Comment on above: Performed By: #### A DIFF, MDW, ANEU, CMP, CBC, GFR #### [address] [address] Eosinophil, Absolute 0.2 10 3/mcL Normal 0.0-0.7 [facility] Comment on above: Performed By: #### A DIFF, MDW, ANEU, CMP, CBC, GFR #### [address] [address] Eosinophils/100 WBC (Bld) 2.1 % Normal 0.0-6.0 [facility] Comment on above: Performed By: #### A DIFF, MDW, ANEU, CMP, CBC, GFR #### [address] [address] Lymphocyte, Absolute 2.3 10 3/mcL Normal 0.9-4.3 [facility] Comment on above: Performed By: #### A DIFF, MDW, ANEU, CMP, CBC, GFR #### [address] [address] Lymphocytes/100 WBC (Bld) 23.3 % Normal 20.0-40.0 [facility] Comment on above: Performed By: #### A DIFF, MDW, ANEU, CMP, CBC, GFR #### [address] [address] Monocyte, Absolute 1.1 10 3/mcL Normal 0.1-1.4 [facility] Comment on above: Performed By: #### A DIFF, MDW, ANEU, CMP, CBC, GFR #### [address] [address] Monocytes/100 WBC (Bld) 10.8 % Normal 2.0-13.0 [facility] Comment on above: Performed By: #### A NIKHIL GUTIERREZ, ANEU, CMP, CBC, GFR #### [address] [address] Neutrophils/100 WBC (Bld) 62.9 % Normal 50.0-75.0 [facility] Comment on above: Performed By: #### A NIKHIL GUTIERREZ, ANEU, CMP, CBC, GFR #### [address] [address] .GFRon 02-18-2025 Estimated Glomerular Filtration Rate 109 ml/min/1.73sqm Normal [facility] Comment on above: Result Comment: Stages of [...] the eGFR results. Performed By: #### A NIKHIL GUTIERREZ, ANEU, CMP, CBC, GFR #### [address] [address] .MDWon 02-18-2025 Monocyte Distribution Width 18.64 Normal 0.00-20.00 [facility] Comment on above: Result Comment: For ED adult patients suspected of sepsis, MDW<=20.0 does not rule out sepsis or risk of sepsis Performed By: #### A NIKHIL GUTIERREZ, ANEU, CMP, CBC, GFR #### [address] [address] .NEUABSon 02-18-2025 Neutrophil, Absolute 6.2 10 3/mcL Normal 2.3-8.1 [facility] Comment on above: Performed By: #### A NIKHIL GUTIERREZ, ANEU, CMP, CBC, GFR #### [address] [address] CBCon 02-18-2025 Erythrocyte distribution width (RBC) [Ratio] 12.9 % Normal 11.5-15.5 [facility] Comment on above: Performed By: #### A NIKHIL GUTIERREZ, ANEU, CMP, CBC, GFR #### [place] [address] Hematocrit (Bld) [Volume fraction] 40.7 % Normal 40.0-52.0 [facility] Comment on above: Performed By: #### A NIKHIL GUTIERREZ, ANEU, CMP, CBC, GFR #### [place] [address] Hgb 14.1 G/dL Normal 13.0-17.5 [facility] Comment on above: Performed By: #### A NIKHIL GUTIERREZ, ANEU, CMP, CBC, GFR #### [place] [address] MCH (RBC) [Entitic mass] 30.7 pg Normal 27.0-33.0 [facility] Comment on above: Performed By: #### A NIKHIL GUTIERREZ, ANEU, CMP, CBC, GFR #### [place] [address] MCHC 34.7 G/dL Normal 32.0-36.0 [facility] Comment on above: Performed By: #### A NIKHIL GUTIERREZ, ANEU, CMP, CBC, GFR #### [place] [address] MCV (RBC) [Entitic vol] 88.5 fL Normal 81.0-100.0 [facility] Comment on above: Performed By: #### A NIKHIL GUTIERREZ, ANEU, CMP, CBC, GFR #### [address] [address] Platelet 220 10 3/mcL Normal 150-450 [facility] Comment on above: Performed By: #### A NIKHIL GUTIERREZ, ANEU, CMP, CBC, GFR #### [address] [address] Platelet mean volume (Bld) [Entitic vol] 8.9 fL Normal 6.4-10.5 [facility] Comment on above: Performed By: #### A NIKHIL GUTIERREZ, ANEU, CMP, CBC, GFR #### [place] [address] RBC 4.60 10 6/mcL Normal 4.50-6.00 [facility] Comment on above: Performed By: #### A NIKHIL GUTIERREZ, ANEU, CMP, CBC, GFR #### [place] [address] WBC 9.9 10 3/mcL Normal 4.5-10.8 [facility] Comment on above: Performed By: #### A NIKHIL GUTIERREZ, ANEU, CMP, CBC, GFR #### [place] [address] CMPon 02-18-2025 ALT [Catalytic activity/Vol] 17 U/L Normal 16-63 [facility] Comment on above: Performed By: #### A NIKHIL GUTIERREZ, GIUSEPPE, CMP, CBC, GFR #### [place] [address] Albumin Level 3.6 G/dL Normal 3.4-4.8 [facility] Comment on above: Performed By: #### A NIKHIL GUTIERREZ, ANEU, CMP, CBC, GFR #### [place] [id number] Albumin/Globulin [Mass ratio] 0.9 {ratio} Low 1.1-2.5 [facility] Comment on above: Performed By: #### A NIKHIL GUTIERREZ, ANEU, CMP, CBC, GFR #### [place] [address] ALP [Catalytic activity/Vol] 111 U/L Normal 40-135 [facility] Comment on above: Performed By: #### A NIKHIL GUTIERREZ, ANEU, CMP, CBC, GFR #### [address] [address] AST [Catalytic activity/Vol] 13 U/L Normal 10-40 [facility] Comment on above: Performed By: #### A NIKHIL GUTIERREZ, ANEU, CMP, CBC, GFR #### [address] [address] Bili Total 0.4 mg/dL Normal 0.2-1.0 [facility] Comment on above: Result Comment: Use of this assay is not recommended for patients undergoing treatment with eltrombopag due to the potential for falsely elevated results. Performed By: #### A NIKHIL GUTIERREZ, ANEU, CMP, CBC, GFR #### [address] [address] BUN/Creatinine Ratio 23 ratio Normal 7-27 [facility] Comment on above: Performed By: #### A NIKHIL GUTIERREZ, GIUSEPPE, CMP, CBC, GFR #### [address] [address] Calcium [Mass/Vol] 9.2 mg/dL Normal 8.4-10.2 [facility] Comment on above: Performed By: #### A NIKHIL GUTIERREZ, ANEU, CMP, CBC, GFR #### [address] [address] Chloride [Moles/Vol] 98 mmol/L Normal 98-107 [facility] Comment on above: Performed By: #### A NIKHIL GUTIERREZ, ANEU, CMP, CBC, GFR #### [address] [address] CO2 [Moles/Vol] 28 mmol/L Normal 23-31 [facility] Comment on above: Performed By: #### A NIKHIL GUTIERREZ, ANEU, CMP, CBC, GFR #### [address] [address] Creatinine [Mass/Vol] 0.60 mg/dL Low 0.67-1.17 [facility] Comment on above: Performed By: #### A NIKHIL GUTIERREZ, ANEU, CMP, CBC, GFR #### [address] [address] Electrolyte Balance 7.0 mEq/L Normal 4.0-15.0 [facility] Comment on above: Performed By: #### A NIKHIL GUTIERREZ, ANEU, CMP, CBC, GFR #### [address] [address] Globulin 3.8 G/dL Normal 2.7-4.4 [facility] Comment on above: Performed By: #### A NIKHIL GUTIERREZ, ANEU, CMP, CBC, GFR #### [address] [address] Glucose [Mass/Vol] 267 mg/dL High 80-115 [facility] Comment on above: Performed By: #### A NIKHIL GUTIERREZ, ANEU, CMP, CBC, GFR #### [address] [address] Potassium [Moles/Vol] 4.1 mmol/L Normal 3.5-5.1 [facility] Comment on above: Performed By: #### A NIKHIL GUTIERREZ, ANEU, CMP, CBC, GFR #### [address] [address] Sodium [Moles/Vol] 133 mmol/L Low 136-145 [facility] Comment on above: Performed By: #### A NIKHIL GUTIERREZ, ANEU, CMP, CBC, GFR #### [address] [address] Total Protein 7.4 G/dL Normal 6.4-8.2 [facility] Comment on above: Performed By: #### A NIKHIL GUTIERREZ, ANEU, CMP, CBC, GFR #### [address] [address] Urea nitrogen [Mass/Vol] 14 mg/dL Normal 7-18 [facility] Comment on above: Performed By: #### A NIKHIL GUTIERREZ, ANEU, CMP, CBC, GFR #### [address] [address] [address] HEAD OR BRAIN W/O CONTRAS Ton [...] IMPRESSION: No acute intracranial abnormality. Interpreted by: Rubén Alfonso MD Preliminary Report By: Rubén Alfonso MD Electronically signed By Rubén Alfonso MD Dictated Date: 02/18/2025 5:12:50 AM Prelim Date: 02/18/2025 5:14:35 AM Sign Date: 02/18/2025 5:14:35 AM Ordering Provider: RADHA Sherman [facility] LABORATORYOrdered By: Ana Galvan on 02-18-2025 Appearance [...] SS UAon 02-18-2025 Color (U) Yellow Normal [facility] Comment on above: Performed By: #### U A #### [address] [address] Glucose (U) [Mass/Vol] 500 mg/dL Abnormal Negative [facility] Comment on above: Performed By: #### U A #### [place] [address] [place], [place] [address] Ketones Ql (U) 15 mg/dL Abnormal Negative [facility] Comment on above: Performed By: #### U A #### [address] [address] UA Appear Clear Normal Clear [facility] Comment on above: Performed By: #### U A #### [address] [address] UA Blood Negative Normal Negative [facility] Comment on above: Performed By: #### U A #### [place] [address] UA Leuk Est Negative Normal Negative [facility] Comment on above: Performed By: #### U A #### [place] [address] UA Nitrite Negative Normal Negative [facility] Comment on above: Performed By: #### U A #### [place] [address] UA pH 6.0 Normal 5.0 - 8.0 [facility] Comment on above: Performed By: #### U A #### [place] [address] UA Protein Trace Normal Negative [facility] Comment on above: Performed By: #### U A #### [place] [address] UA Spec Grav 1.010 Abnormal 1.015-1.025 [facility] Comment on above: Performed By: #### U A #### [place] [address] UA Specimen Type Void Normal [facility] Comment on above: Performed By: #### U A #### [place] [address] UA Urobilinogen 0.2 E.U./dL Normal 0.2-1.0 [facility] Comment on above: Performed By: #### U A #### [place] [address] Urobilinogen (U) [Mass/Vol] Negative Normal Negative [facility] Comment on above: Performed By: #### U A #### [address] [place] [address] [place], [place] [address] CT [facility]INE CERVICAL W/O CONTRAST ORIGINAL [...] Date: 11/10/2023 7:42:22 PM Ordering Provider: JADIEL WALLS [facility] ([place]) XR HAND AND WRIST 6 VIEWS LE [facility] 11-10-2023 XR HAND AND WRIST 6 VIEWS [...] Date: 11/10/2023 9:17:05 PM Ordering Provider: JADIEL Sherman [facility] ([place] XR KNEE 1 OR 2 VIEWS LEFTon [...] Date: 11/10/2023 9:13:57 PM Ordering Provider: JADIEL Sherman [facility]) XR SHOULDER MINIMUM 2 VIEWS RIGHTon 11-10-2023 [...] 11/10/2023 9:13:25 PM Ordering Provider: JADIEL Sherman [facility] ([place]) .Auto Diffon 12-13-2022 Basophil, Absolute 0.0 10 3/mcL Normal 0.0-0.2 [facility] ([place]) Comment on above: Performed By: #### A JEFFRY, LIPID, GFR, ADIFF, PSA, CBC, CMP #### [address] [address] Basophils/100 WBC (Bld) 0.4 % Normal 0.0-2.5 A [facility] ([place]) Comment on above: Performed By: #### A JEFFRY, LIPID, GFR, ADIFF, PSA, CBC, CMP #### [address] [address] Eosinophil, Absolute 0.1 10 3/mcL Normal 0.0-0.4 [facility] ([place]) Comment on above: Performed By: #### A JEFFRY, LIPID, GFR, ADIFF, PSA, CBC, CMP #### [address] [address] Eosinophils/100 WBC (Bld) 1.1 % Normal 0.0-7.0 [facility] ([place] Comment on above: Performed By: #### A JEFFRY, LIPID, GFR, ADIFF, PSA, CBC, CMP #### [address] [address] Lymphocyte, Absolute 1.5 10 3/mcL Normal 0.8-3.9 [facility] ([place]) Comment on above: Performed By: #### A JEFFRY, LIPID, GFR, ADIFF, PSA, CBC, CMP #### [address] [address] Lymphocytes/100 WBC (Bld) 19.8 % Normal 10.0-50.0 [facility] ([place] Comment on above: Performed By: #### A JEFFRY, LIPID, GFR, ADIFF, PSA, CBC, CMP #### [address] [address] Monocyte, Absolute 0.5 10 3/mcL Normal 0.2-1.0 [facility] ([place]) Comment on above: Performed By: #### A JEFFRY, LIPID, GFR, ADIFF, PSA, CBC, CMP #### [address] [address] Monocytes/100 WBC (Bld) 6.9 % Normal 1.7-13.0 A [facility] ([place]) Comment on above: Performed By: #### A JEFFRY, LIPID, GFR, ADIFF, PSA, CBC, CMP #### [address] [address] Neutrophils/100 WBC (Bld) 71.8 % Normal 37.0-80.0 [facility] ([place]) Comment on above: Performed By: #### A JEFFRY, LIPID, GFR, ADIFF, PSA, CBC, CMP #### [address] [address] .GFRon 12-13-2022 GFR 110 ml/min/1.73sqm Normal [facility] ([place] Comment on above: Result Comment: GFR Population [...] LIPID, GFR, ADIFF, PSA, CBC, CMP #### [place] [address] [place], [place] [address] GFR Non- 91 ml/min/1.73sqm Normal [facility] ([place] Comment on above: Result Comment: GFR Population [...] LIPID, GFR, ADIFF, PSA, CBC, CMP #### [address] [address] .NEUABSon 12-13-2022 Neutrophil, Absolute 5.3 10 3/mcL Normal 2.9-6.2 [facility] ([place] Comment on above: Performed By: #### A JEFFRY, LIPID, GFR, ADIFF, PSA, CBC, CMP #### [address] [address] CBCon 12-13-2022 Erythrocyte distribution width (RBC) [Ratio] 12.6 % Normal 11.5-14.5 [facility] ([place] Comment on above: Performed By: #### A JEFFRY, LIPID, GFR, ADIFF, PSA, CBC, CMP #### [address] [address] Hematocrit (Bld) [Volume fraction] 42.9 % Normal 42.0-52.0 [facility] ([place] Comment on above: Performed By: #### A JEFFRY, LIPID, GFR, ADIFF, PSA, CBC, CMP #### [address] [address] Hgb 14.5 G/dL Normal 14.0-18.0 [facility] ([place] Comment on above: Performed By: #### A JEFFRY, LIPID, GFR, ADIFF, PSA, CBC, CMP #### [address] [address] MCH (RBC) [Entitic mass] 31.4 pg High 27.0-31.2 [facility] ([place] Comment on above: Performed By: #### A JEFFRY, LIPID, GFR, ADIFF, PSA, CBC, CMP #### [place] [id number] MCHC 33.8 G/dL Normal 31.8-35.4 [facility] ([place] Comment on above: Performed By: #### A JEFFRY, LIPID, GFR, ADIFF, PSA, CBC, CMP #### [address] [address] MCV (RBC) [Entitic vol] 92.7 fL Normal 80.0-94.0 A [facility] ([place] Comment on above: Performed By: #### A JEFFRY, LIPID, GFR, ADIFF, PSA, CBC, CMP #### [address] [address] Platelet 224 10 3/mcL Normal 130-400 [facility] ([place] Comment on above: Performed By: #### A JEFFRY, LIPID, GFR, ADIFF, PSA, CBC, CMP #### [address] [address] Platelet mean volume (Bld) [Entitic vol] 9.3 fL Normal 7.4-10.4 [facility] ([place] Comment on above: Performed By: #### A JEFFRY, LIPID, GFR, ADIFF, PSA, CBC, CMP #### [address] [address] RBC 4.62 10 6/mcL Normal 4.04-6.13 [facility] ([place] Comment on above: Performed By: #### A JEFFRY, LIPID, GFR, ADIFF, PSA, CBC, CMP #### [address] [address] WBC 7.4 10 3/mcL Normal 4.6-10.8 [facility] ([place] Comment on above: Performed By: #### A JEFFRY, LIPID, GFR, ADIFF, PSA, CBC, CMP #### [address] [address] CMPon 12-13-2022 Albumin Level 4.1 G/dL Normal 3.4-4.8 [facility] ([place] Comment on above: Performed By: #### A JEFFRY, LIPID, GFR, ADIFF, PSA, CBC, CMP #### [address] [address] Albumin/Globulin [Mass ratio] 1.2 {ratio} Normal 1.1-2.5 [facility] ([place] Comment on above: Performed By: #### A JEFFRY, LIPID, GFR, ADIFF, PSA, CBC, CMP #### [address] [address] ALP [Catalytic activity/Vol] 100 U/L Normal 40-135 [facility] ([place] Comment on above: Performed By: #### A JEFFRY, LIPID, GFR, ADIFF, PSA, CBC, CMP #### [address] [address] ALT [Catalytic activity/Vol] 23 U/L Normal 16-63 [facility] ([place] Comment on above: Performed By: #### A JEFFRY, LIPID, GFR, ADIFF, PSA, CBC, CMP #### [address] [address] AST [Catalytic activity/Vol] 25 U/L Normal 10-40 [facility] ([place] Comment on above: Performed By: #### A JEFFRY, LIPID, GFR, ADIFF, PSA, CBC, CMP #### [address] [address] Bili Total 0.6 mg/dL Normal 0.2-1.0 [facility] ([place] Comment on above: Result Comment: Use of this assay is not recommended for patients undergoing treatment with eltrombopag due to the potential for falsely elevated results. Performed By: #### A JEFFRY, LIPID, GFR, ADIFF, PSA, CBC, CMP #### [address] [address] BUN/Creatinine Ratio 12 ratio Normal 7-27 [facility] ([place]) Comment on above: Performed By: #### A JEFFRY, LIPID, GFR, ADIFF, PSA, CBC, CMP #### [address] [address] Calcium [Mass/Vol] 9.5 mg/dL Normal 8.4-10.2 [facility] ([place]) Comment on above: Performed By: #### A JEFFRY, LIPID, GFR, ADIFF, PSA, CBC, CMP #### [address] [address] Chloride [Moles/Vol] 100 mmol/L Normal 98-107 [facility] ([place] Comment on above: Performed By: #### A JEFFRY, LIPID, GFR, ADIFF, PSA, CBC, CMP #### [address] [address] CO2 [Moles/Vol] 30 mmol/L Normal 23-31 [facility] ([place] Comment on above: Performed By: #### A JEFFRY, LIPID, GFR, ADIFF, PSA, CBC, CMP #### [address] [address] Creatinine [Mass/Vol] 0.86 mg/dL Normal 0.70-1.30 [facility] ([place]) Comment on above: Performed By: #### A JEFFRY, LIPID, GFR, ADIFF, PSA, CBC, CMP #### [address] [address] Electrolyte Balance 8.0 mEq/L Normal 4.0-15.0 [facility] ([place]) Comment on above: Performed By: #### A JEFFRY, LIPID, GFR, ADIFF, PSA, CBC, CMP #### [address] [address] Globulin 3.5 G/dL Normal [facility] ([place] Comment on above: Performed By: #### A JEFFRY, LIPID, GFR, ADIFF, PSA, CBC, CMP #### [address] [address] Glucose [Mass/Vol] 237 mg/dL High 80-115 [facility] ([place] Comment on above: Performed By: #### A JEFFRY, LIPID, GFR, ADIFF, PSA, CBC, CMP #### [address] [address] Potassium [Moles/Vol] 4.6 mmol/L Normal 3.5-5.1 [facility] ([place] Comment on above: Performed By: #### A JEFFRY, LIPID, GFR, ADIFF, PSA, CBC, CMP #### [place] [address] [place], [place] [address] Sodium [Moles/Vol] 138 mmol/L Normal 136-145 [facility] ([place] Comment on above: Performed By: #### A JEFFRY, LIPID, GFR, ADIFF, PSA, CBC, CMP #### [place] [address] [place], [place] [address] Total Protein 7.6 G/dL Normal 6.4-8.2 [facility] ([place] Comment on above: Performed By: #### A JEFFRY, LIPID, GFR, ADIFF, PSA, CBC, CMP #### [place] [address] [place], [place] [address] Urea nitrogen [Mass/Vol] 10 mg/dL Normal 7-18 [facility] ([place] Comment on above: Performed By: #### A JEFFRY, LIPID, GFR, ADIFF, PSA, CBC, CMP #### [place] [address] [place], [place] [address] LABORATORYOrdered By: SYSTEM SYSTEM on 12-13-2022 Albumin [...] 12-13-2022 Cholesterol [Mass/Vol] 268 mg/dL High 0-200 [facility] ([place] Comment on above: Result Comment: Chol esterol Reference Interval: Less than 200 Desirable 200-239 Borderline high risk 240 and above High risk Performed By: #### A JEFFRY, LIPID, GFR, ADIFF, PSA, CBC, CMP #### [address] [address] Cholesterol in HDL [Mass/Vol] 43 mg/dL Normal 40-60 [facility] ([place] Comment on above: Performed By: #### A JEFFRY, LIPID, GFR, ADIFF, PSA, CBC, CMP #### [place] [address] [place], [place] [address] LDL Cholesterol Not Valid Normal 0-130 [facility] ([place] Comment on above: Result Comment: Trig lyceride >400 invalidates the calculated LDL. Performed By: #### A JEFFRY, LIPID, GFR, ADIFF, PSA, CBC, CMP #### [address] [address] Triglyceride [Mass/Vol] 477 mg/dL High 0-150 A [facility] ([place] Comment on above: Result Comment: Trig lyceride Reference Interval: Less than 150 Normal 150-199 Borderline high risk 200-499 High risk 500 or higher Very high risk Performed By: #### A JEFFRY, LIPID, GFR, ADIFF, PSA, CBC, CMP #### [address] [address] PSAon 12-13-2022 Prostate Specific Antigen 1.43 ng/mL Normal 0.00-4.00 [facility] ([place] Comment on above: Performed By: #### A JEFFRY, LIPID, GFR, ADIFF, PSA, CBC, CMP #### [address] [address] Glucose Glucometer (BldC) [M ass/Vol]on 08-10-2022 Glucose [Mass/Vol] 262 mg/dL 74-106 [facility] Work Phone: Comment on above: MANAGEMENT OF PATIEN T CARE PER NURSING PROTOCOL LABORATORYOrdered By: Angie morales on 01-19-2022 Glucose [Mass/Vol] 405 mg/dL Invalid Interpretation Code 70 - 110 mg/dL [facility] HbA1c (Bld) [Mass fraction] 10.5 % [facility] Lab Performing Location [facility] LABORATORYOrdered By: Neville Castro on 08-25-2021 HbA1c (Bld) [Mass fraction] 9.5 % [facility] Lab Performed By Marisela Waters PharmD [facility] Lab Performing Location [facility] Ambulatory Clinical Summaryo n 08-08-2021 Ambulatory Clinical Summary TARAH MCALLISTER :1960 [...] for visit Day With Date Time Where [facility] Follow Up 3 M F/UP FOR NECK/CHEEK [...] How Much When Why Comments Stop Taking acetaminophen-oxycod one (acetaminophen-oxyco done 325 mg-5 mg oral tablet = Percocet) [...] sweat, clarence (more content not included)... Normal [facility] Phone Msgon 08-08-2021 Phone Msg - From: DRE JUSTICE MD To: RAND FARNSWORTH Gail; Sent: 08/07/2021 11:32:17 EDT This patient never [...] carotid ultrasound and then ordered for me. - From: ALEC FARNSWORTH To: Etelvina Ferrer; DRE JUSTICE MD; Sent: 08/08/2021 12:03:08 EDT Subject: RE: LVM for him to call back. I have the order printed to mail to him. Will pass along to Etelvina. Order mailed to Tarah, along with note to please schedule carotid duplex and call for follow up office appointment Normal [facility] Phone Msgon 08-07-2021 Phone Msg - [...] History of left-sided carotid endarterectomy. Z98.890 Normal [facility] LABORATORYOrdered By: Suze Rivera on 08-04-2021 Glucose [Mass/Vol] 290 mg/dL Invalid Interpretation Code 70 - 110 mg/dL [facility] Phone Carlos Manuel 07-10-2021 Phone - From: ALOK MCRAE, IRIS To: DRE JUSTICE MD; Sent: 06/23/2021 17:29:29 [...] with ordering anything. Thanks for the referral [place] - From: DRE JUSTICE MD To: ALEC FARNSWORTH; Sent: 07/10/2021 08:43:33 EDT Subject: RE: follow up on referral Interesting may need to look into this. We may need to order the MRI etc. Review with me sometime this week Normal [facility] AMB ENT Physician Progress N marjan 07-06-2021 AMB ENT Physician Progress Note Chief [...] mmHg (06/23/21 15:20:00) BP Site2: Left arm (06/23/21:20:00) Height/Length Measured: 170 cm (06/23/21 15:20:00) Weight Measured: 78 kg (06/23/21 15:20:00) Body Mass Index Measured: 26.99 kg/m2 (06/23/21 15:20:00) Weight Measured - lbs2: 171 lb (06/23/21:20:00) Height/Length Measured - in2: 67 in (06/23/21 15:20:00) Body Mass Index Measured English2: 26.78 kg/m2 (06/23/21 15:20:00) BSA: 1.91 m2 (06/23/21:20:00) Ht/Wt Measurement Refused by Patient?2: No (06/23/21 15:20:00) Depression Screening Scores Initial Depression Screen Score: 0 (06/23/21 15:20:00) Fall Risk Assessment Is the patient ambulatory (mobile): Yes (06/23/21 15:20:00) Have you had a fall within the past: No (06/23/21 15:20:00) Have you had 2 or more falls in the past: No (06/23/21 15:20:00) Vital signs reviewed and are normal He [...] routine issues please contact the office at: [phone] For urgent issues you may reach me via cell at: [phone] -please leave patient's name and date of -text preferred -may also leave a voicemail if I do not garbage pick up man Assessment/Plan 1. Pain in salivary gland region [...] parotid gla (more content not included)... Normal [facility] Ambulatory Clinical Summaryo n 06-23-2021 Ambulatory Clinical Summary TARAH MCALLISTER :1960 Visit Date:06/23/2021 Ambulatory Visit Instructions Your Care Team Attending Physician - IRIS DICKINSON MD Primary Care Physician - NO FAMILY PHYSICIAN, [...] routine issues please contact the office at: [phone] For urgent issues you may reach me via cell at: [phone] -please leave patient's name and date of -text preferred -may also leave a voicemail if I do not garbage pick up man Scheduled Follow-Up Appointments Appointment Type Reason for visit Day With Date Time Where [facility] Follow Up 3 M F/UP Saturday IRIS [...] call to get immediate medical attention! Normal [facility] Ambulatory Clinical Summaryo n 04-19-2021 Ambulatory Clinical Summary ESVINTARAH FRANKS :1960 Visit Date:04/14/2021 Ambulatory Visit Instructions Your Diagnosis Left carotid stenosis Your Care Team Attending Physician - RESHMA MCRAE, DRE Primary Care Physician - ALLEN MCRAE, MATTIE Procedures Performed Carotid Endarterectomy. (01/06/2021) Discharge Vitals No qualifying data available. Medications What How Much When Why Instructions Unchanged acetaminophen-oxycod one (acetaminophen-oxyco done 325 mg-5 mg oral tablet = Percocet) [...] call to get immediate medical attention! Normal [facility] Physician Progress Noteon 04-14-2021 [facility] Physician Progress Note Chief Complaint 2 month surgical f/u History of Present Illness Mr. Mcallister is a 60 year old male with PMH for hypertension, hyperlipidemia, and diabetes mellitus. He was admitted to [facility] from January 03 to January 09, 2021 [...] Chest clear Heart regular rate and rhythm Spot Checker strength good Subjective numbness fourth and fifth [...] Est Pt Mod MDM / 30-39 min [address], 04/14/2021 08:55:00 EDT, Left carotid stenosis / History of left-sided carotid endarterectomy. 2. History of left-sided carotid endarterectomy. Z98.890 Ordered: AMB Ancillary Order - Carotid, *Est. 04/14/2021 due within 4 weeks, Order For Future Visit AMB Follow - Up Appt Amb, 04/14/2021 08:55:00 EDT, 4-6 weeks AMB Office/Outpt Est Pt Mod MDM / 30-39 min [address], 04/14/2021 08:55:00 EDT, Left carotid stenosis / [...] - Denie (more content not included)... Normal [facility] Ambulatory Clinical Summaryo n 04-14-2021 Ambulatory Clinical Summary TARAH MCALLISTER :1960 Visit Date:04/14/2021 Ambulatory Visit Instructions Your Diagnosis Left carotid stenosis History of left-sided carotid endarterectomy. Your Care Team Attending Physician - RESHMA MCRAE, DRE Primary Care Physician - ALLEN MCRAE, MATTIE Procedures Performed Carotid Endarterectomy. (01/06/2021) Discharge Vitals Heart [...] How Much When Why Comments Stop Taking acetaminophen-oxycod one (acetaminophen-oxyco done 325 mg-5 mg oral tablet = Percocet) [...] call to get immediate medical attention! Normal [facility] Physician Progress Noteon 02-10-2021 [facility] [facility] Physician Progress Note Chief Complaint patient here for surgical follow up, Lt carotid endarterectomy w/ patch History of Present Illness Mr. Mcallister is a 60 year old male with PMH for hypertension, hyperlipidemia, and diabetes mellitus. He was admitted to [facility] from January 03 to January 09, 2021 [...] cm (02/10/21 09:58:00) Weight Measured: 79 kg (02/10/21:58:00) Body Mass Index Measured: 27.34 kg/m2 (02/10/21 09:58:00) Depression Screening Scores Initial Depression Screen Score: 0 (02/10/21 09:58:00) Fall Risk Assessment Is the patient ambulatory (mobile): Yes (02/10/21 09:58:00) Have you had a fall within the past: No (02/10/21:58:00) Have you had 2 or more falls [...] needed. He may also want to try [id number]-[id number] ibuprofen as needed for pain and inflammation and to follow directions on the bottle. Repeat carotid duplex in 2 months. Follow-up appointment with Dr. Justice in 2 months following carotid duplex. Ordered: mupirocin 2% topical ointment = bactroban, 1 karina, Topical, TID, apply a thin film, # 22 g, Refill(s) 0, Date: 02/10/2021 10:27:00 EDT, Pharmacy: [facility], 1 karina Topical TID,x5 days,Instr:apply a thin film, Encounter for surgical aftercare following surgery of circulatory system, 1... AMB Follow - Up Appt Amb, 02/10/2021 10:27:00 EDT, DRE JUSTICE MD, 2 months AMB Postop followup during global period [id number], 02/10/2021 10:27:00 EDT, Encounter for surgical aftercare following surgery of circulatory system / Hypertensive disorder / Hyperlipidemia / Type 2 diabetes mellitus / Abrasion of ear AMB SGMG A (more content not included)... Normal [facility] Vital Signs Date Time Vital Sign Value Performing Clinician Trev dunlap 03-26-2025 03:32-0400 Body temperature 98 [degF] Dr. Pancho Sales DO Work Phone: [place] 03-26-2025 03:32-0400 Diastolic blood pressure 60 mm[Hg] Dr. Pancho Sales DO Work Phone: [place] 03-26-2025 03:32-0400 Heart rate 88 /min Dr. Pancho Sales DO Work Phone: [place] 03-26-2025 03:32-0400 Respiratory rate 16 /min Dr. Pancho Sales DO Work Phone: [place] 03-26-2025 03:32-0400 SaO2% (BldA) [Mass fraction] 97 % Dr. Pancho Sales DO Work Phone: [place] 03-26-2025 03:32-0400 Systolic blood pressure 102 mm[Hg] Dr. Pancho Sales DO Work Phone: [place] 03-25-2025 22:00-0400 Body height 170.[address] Pancho Sales DO Work Phone: [place] 03-25-2025 22:00-0400 Body mass index (BMI) [Ratio] 25.9 kg/m2 Dr. Pancho Sales DO Work Phone: [place] 03-25-2025 22:00-0400 Body weight [address] Pancho Sales DO Work Phone: [place] 02-18-2025 06:16-0400 Diastolic Blood Pressure Non-Invasive 84 mm[Hg] RADHA FRANCIS DO [facility] 02-18-2025 06:16-0400 Heart rate 74 /min RADHA MCCARTHYA DO [facility] 02-18-2025 06:16-0400 Respiratory rate 16 /min NIDAL CHOUJAA DO [facility] 02-18-2025 06:16-0400 Systolic Blood Pressure Non-Invasive 140 mm[Hg] NIDAL CHOUJAA DO [facility] 02-18-2025 04:05-0400 Blood Pressure Location NIDAL CHOUJAA DO [facility] 02-18-2025 04:05-0400 Body temperature 98.6 [degF] NIDAL CHOUJAA DO [facility] 02-18-2025 04:05-0400 Diastolic Blood Pressure Non-Invasive 93 mm[Hg] NIDAL CHOUJAA DO [facility] 02-18-2025 04:05-0400 Heart rate 84 /min NIDAL CHOUJAA DO [facility] 02-18-2025 04:05-0400 Respiratory rate 16 /min NIDAL CHOUJAA DO [facility] 02-18-2025 04:05-0400 Systolic Blood Pressure Non-Invasive 175 mm[Hg] NIDAL CHOUJAA DO [facility] 08-10-2022 10:15-0400 Body temperature 97.8 [degF] MICROSTRATEGY REPORTS DEVELOPER-C Marybel Solitario MICROSTRATEGY REPORTS DEVELOPER Work Phone: [place] Work Phone: 08-10-2022 10:15-0400 Diastolic blood pressure 71 mm[Hg] MICROSTRATEGY REPORTS DEVELOPER-C Marybel Solitario MICROSTRATEGY REPORTS DEVELOPER Work Phone: [place] Work Phone: 08-10-2022 10:15-0400 Heart rate 61 /min MICROSTRATEGY REPORTS DEVELOPER-C Marybel Solitario MICROSTRATEGY REPORTS DEVELOPER Work Phone: [place] Work Phone: 08-10-2022 10:15-0400 Respiratory rate 16 /min MICROSTRATEGY REPORTS DEVELOPER-C Marybel Solitario MICROSTRATEGY REPORTS DEVELOPER Work Phone: [place] Work Phone: 08-10-2022 10:15-0400 SaO2% (BldA) [Mass fraction] 97 % MICROSTRATEGY REPORTS DEVELOPER-C Marybel Solitario MICROSTRATEGY REPORTS DEVELOPER Work Phone: [place] Work Phone: 08-10-2022 10:15-0400 Systolic blood pressure 101 mm[Hg] MICROSTRATEGY REPORTS DEVELOPER-C Marybel Solitario MICROSTRATEGY REPORTS DEVELOPER Work Phone: [place] Work Phone: 08-10-2022 08:30-0400 Body height 170.18 cm MICROSTRATEGY REPORTS DEVELOPER-C Marybel Solitario MICROSTRATEGY REPORTS DEVELOPER Work Phone: [place] Work Phone: 08-10-2022 08:30-0400 Body mass index (BMI) [Ratio] 25.2 kg/m2 MICROSTRATEGY REPORTS DEVELOPER-C Marybel Solitario MICROSTRATEGY REPORTS DEVELOPER Work Phone: [place] Work Phone: 08-10-2022 08:30-0400 Body weight 73 kg MICROSTRATEGY REPORTS DEVELOPER-C Marybel Solitario MICROSTRATEGY REPORTS DEVELOPER Work Phone: [place] Work Phone: 06-29-2022 12:48-0400 Body mass index (BMI) [Ratio] 25.9 kg/m2 MICROSTRATEGY REPORTS DEVELOPER-C Marybel Solitario MICROSTRATEGY REPORTS DEVELOPER Work Phone: [place] Work Phone: 06-29-2022 12:48-0400 Body temperature 97.2 [degF] MICROSTRATEGY REPORTS DEVELOPER-C Marybel Solitario MICROSTRATEGY REPORTS DEVELOPER Work Phone: [place] Work Phone: 06-29-2022 12:48-0400 Body weight 75.06 kg MICROSTRATEGY REPORTS DEVELOPER-C Marybel Solitario MICROSTRATEGY REPORTS DEVELOPER Work Phone: [place] Work Phone: 06-29-2022 12:48-0400 Diastolic blood pressure 64 mm[Hg] MICROSTRATEGY REPORTS DEVELOPER-C Marybel Solitario MICROSTRATEGY REPORTS DEVELOPER Work Phone: [place] Work Phone: 06-29-2022 12:48-0400 Heart rate 110 /min MICROSTRATEGY REPORTS DEVELOPER-C Marybel Solitario MICROSTRATEGY REPORTS DEVELOPER Work Phone: [place] Work Phone: 06-29-2022 12:48-0400 Respiratory rate 18 /min MICROSTRATEGY REPORTS DEVELOPER-C Marybel Solitario MICROSTRATEGY REPORTS DEVELOPER Work Phone: [place] Work Phone: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 Air Radiography Diagnostic Testing: Clinical Impression(s) from Imaging Studies Brain CT 03/25/25 22:30 IMPRESSION: No acute intracranial abnormality. Reading Location: [facility] Cervical Spine CT 03/25/25 22:30 IMPRESSION: No acute osseous abnormality. Reading Location: [facility] Pelvis X-Ray 03/25/25 23:18 IMPRESSION: Negative for acute displaced fracture or malalignment. Reading Location: [facility] Pelvis x-ray as interpreted by the emergency medicine physician reveals no acutefracture or dislocation Discharge Plan Triage Chief Complaint: Fall ED Provider: Pancho Sales Dx/Rx/DC Orders Clinical Impression: HTN (hypertension), Diabetes, Accidental fall, Alcohol intoxication Instructions: Diabetes: Caring for Your Body, ED Alcohol Intoxication Prescriptions: No Action lisinopril 20 mg tablet 20 mg PO DAILY metformin 1,000 mg tablet 1,000 mg PO BID lovastatin 20 mg tablet 20 mg PO DAILY B-complex with vitamin C [Super B Complex-Vitamin C] Tablet 1 tab PO DAILY ascorbic acid (vitamin C) 250 mg tablet 250 mg PO DAILY cholecalciferol (vitamin D3) 25 mcg (1,000 unit) capsule 25 mcg PO DAILY vitamin E 200 unit capsule 200 unit PO DAILY apple cider vinegar 600 mg capsule 600 mg PO DAILY garlic 500 mg capsule 500 mg PO DAILY atorvastatin 80 mg tablet 80 mg PO QHS Patient Comments: TAKE 1 TABLET BY MOUTH ONCE DAILY pioglitazone 45 mg tablet 45 mg PO DAILY Patient Comments: TAKE 1 TABLET BY MOUTH ONCE DAILY krill oil 500 mg capsule 500 mg PO QDAY Jardiance 10 mg Tablet 10 mg PO DAILY [facility] [facility] [facility] [Primary [place] Provider] - Print Language: [place] Citizen Disposition Disposition: Home, Self Care What to do if you have Problems For any increased pain, shortness of breath, bleeding, nausea or vomiting, chestpain, or any unexpected problems, contact your Primary Care Provider. Call [facility] ([phone]) or report to the closest Emergency Room. Call 911 if necessary. 03/26/25 0205 <Electronically signed by Pancho Sales DO> Cosigner Signature (if applicable): CC: [place] [facility] ~ Signed [place] Work Phone: Evaluation + Plan note Future Appointments Appointment Date:12/06/2022 09:30:00 AM Scheduled Provider:MARYBEL SOLITARIO Location:[facility] Appointment Type: OV Follow Up Future Scheduled Tests Laboratory* A1C Hemoglobin 06/08/22 * Lipid Profile 06/08/22 * Lipid Profile 06/08/22 * Complete Metabolic Panel 06/08/22 * Complete Metabolic Panel 06/08/[address] [facility] Evaluation + Plan note Future Appointments Appointment Date:06/13/2023 09:30:00 AM Scheduled Provider:MARYBEL SOLITARIO Location:[facility] Appointment Type: OV Future Scheduled Tests Laboratory* A1C Hemoglobin 06/08/22 * Lipid Profile 06/08/22 * Lipid Profile 06/08/22 * Complete Metabolic Panel 06/08/22 * Complete Metabolic Panel 06/08/[address] [facility] Evaluation note* Diagnosis Onset Date Resolution Status History of colon polyps acut e [place] Work Phone: Evaluation noteNo assessment information available [place] Work Phone: Hospital course Narrative No data available for this section [facility] Hospital Discharge instructions No data available for this section [facility] Progress note No data available for this section [facility] Reason for referral (narrative)No reason for referral information availableW[facility] Work Phone: Summary Purpose Family History No Family History Records Found Relationship Condition Age at Onset Recorded Date/T dick mother Malignant neoplasm of colon Unknown father Diabetes mellitus Unknown Hypertension Unknown Malignant neoplasm Unknown Advance Directives No Advanced Directives Records Found Advance Directive Response Recorded Date/ Time Living Will No August 08 11:35am Power of Hospice Registered Nurse No August 08, 2022 11:35am Advance Directive Response Recorded Date/ Time Do you have a Healthcare Power of Hospice Registered Nurse? No March 25, 2025 10:45pm Chief Complaint and Reason for Visit Chief Complaint COLONOSCOPY Reason for Visit History of colon jonatan yps Chief Complaint Admit Date March 25, 2025 9:59p m Additional Source Comments (unrecognized sect ion and content) No Status Records FoundNo Status Records FoundNo Status Records FoundNo Status Records Found INFORMATION SOURCE (unrecogn ized section and content) DATE CREATED AUTHOR 01/30/2022 [facility] DATE CREATED AUTHOR AUTHOR'S ORGANIZ ATION 11/15/2023 [facility] ([place]) DATE CREATED AUTHOR AUTHOR'S ORGANIZ ATION 04/01/2025 [facility] DATE CREATED AUTHOR AUTHOR'S ORGANIZ ATION 05/20/2025 [facility] Care Team (unrecognized sect ion and content) Care Team Personnel Name: MARYBEL SOLITARIO APRN-WHAT JOB TITLES MEAN Position: P4 Advanced Practice Nurse Med Service: Employed Provider Member Role: Primary Care Physician Address: Address: [address] Care Team Related Persons Name: TARAH MCALLISTER Care Team Personnel Name: MARYBEL SOLITARIO APRN-WHAT JOB TITLES MEAN Position: P4 Advanced Food Sampler Member Role: Primary Care Physician Address: Address: [address] Care Team Related Persons Name: TARAH MCALLISTER Patient Care team informatio n (unrecognized section and content) Team Status: Active Member Role Status Dates [facility] Primary Care Provider Active Team Status: Inactive Member Role Status Dates Dr. Pancho aSles DO Referring Provider Active Start: March 25, 2025 End: March 26, 2025 Dr. Pancho Sales , DO Emergency Provider Active Start: March 25, 2025 End: March 26, 2025 [facility] Primary Care Provider Active Start: March 25, 2025 End: March 26, 2025 Goals (unrecognized section and content) Goals may be documented in a n alternate section FOR RECORDS PERTAINING TO PATIENTS WHO ARE [...] BE BASED ON THE PRIMARY CLINICAL RECORDS. [employer] provides no warranty or guarantee of the accuracy or completeness of information in this document.
[2025-08-08 20:20] VITALS: O2SAT 98
--- NOTE | 2025-08-08 20:20 | EKG12_ITS ---
Test Reason : CP Blood Pressure : */* mmHG Vent. Rate : 97 BPM Atrial Rate : 97 BPM P-R Int : 158 ms QRS Dur : 84 ms QT Int : 352 ms P-R-T Axes : 55 -53 38 degrees QTcB Int : 447 ms Normal sinus rhythm Left anterior fascicular block Possible Anterolateral infarct (cited on or before 25-Mar-2025) Abnormal ECG Confirmed by ARNALDO MCRAE, MOLLY ([id number]), loan expeditor GREGORY YANG ([id number]) on 08/09/2025 10:41:02 AM Referred By: Confirmed By: MOLLY MCINTOSH MD
--- NOTE | 2025-08-08 20:20 | EX.ED.DYSGE1 ---
HPI History of Present Illness Chief Complaint: General Illness Informant: patient Onset/Context/Timing Onset: Weeks Current Severity: Mild Maximum Severity: Mild Narrative Narrative: 65-year-old male history of diabetes and hypertension. States he is had some mild chest discomfort not associated with exertion. Denies any history of DVT or PE or risk factors. No cardiac history. He also has bilateral shoulder pain from arthritis he states. Patient go to the [place]. He denies any nausea vomiting. He denies any fever or chills. No melena. Prior similar symptoms: Yes Recent Illness/Hospitalization: No PFSH PFS Medical History Arthritis Wears glasses Alcohol use Former smoker Diabetes High cholesterol Carotid stenosis HTN (hypertension) Home Medications ?Medication ?Instructions ?Recorded ?Last Taken ?Type B-complex with vitamin C (Super B 1 tab PO DAILY 05/19/21 Unknown History Complex-Vitamin C tablet) apple cider vinegar 600 mg capsule 600 mg PO DAILY 05/19/21 Unknown History ascorbic acid (vitamin C) 250 mg 250 mg PO DAILY 05/19/21 Unknown History tablet cholecalciferol (vitamin D3) 25 25 mcg PO DAILY 05/19/21 Unknown History mcg (1,000 unit) capsule garlic 500 mg capsule 500 mg PO DAILY 05/19/21 Unknown History lisinopril 20 mg tablet 20 mg PO DAILY 05/19/21 08/10/22 History lovastatin 20 mg tablet 20 mg PO DAILY 05/19/21 Unknown History metformin 1,000 mg tablet 1,000 mg PO BID 05/19/21 Unknown History vitamin E 200 unit capsule 200 unit PO DAILY 05/19/21 Unknown History atorvastatin 80 mg tablet 80 mg PO QHS 06/29/22 Unknown History krill oil 500 mg capsule 500 mg PO QDAY 06/29/22 Unknown History pioglitazone 45 mg tablet 45 mg PO DAILY 06/29/22 Unknown History empagliflozin 10 mg tablet 10 mg PO DAILY 08/08/22 Unknown History (Jardiance) Allergy/AdvReac Type Severity Reaction Status Date / Time No Known Allergies Allergy Verified 08/08/25 18:38 Family History Mother Colon cancer Father Diabetes Hypertension Cancer renal Surgical History History of colonoscopy (~2012) History of right-sided carotid endarterectomy Social History Smoking Status: Former smoker alcohol intake: current alcohol intake frequency: a few times a week ROS ROS ED ROS Narrative Atypical nonexertional chest pain. Constitutional Constitutional ED: Denies chills or fever(s) Eyes Eyes: Denies blurry vision ENT ENT ED: Denies ear pain Cardiovascular Cardiovascular: Reports chest pain; Denies palpitations or racing heartbeat Respiratory/Chest Respiratory/Chest: Denies cough or dyspnea Gastrointestinal Gastrointestinal: Reports diarrhea; Denies abdominal pain, melena, nausea or vomiting Genitourinary Genitourinary ED: Denies dysuria or hematuria Musculoskeletal Musculoskeletal: Reports arthralgias; Denies back pain Integumentary Denies abscess Neurologic Neurologic: Denies headache(s) Psychiatric Psychiatric: Denies anxiety Endocrine Endocrinology: Denies cold intolerance Hematologic/Lymphatic Hematologic/Lymphatic: Reports none Allergic/Immunologic Allergic/Immunologic ED: Denies mouth swelling, tongue swelling or urticaria EXAM Physical Exam Narrative Exam Narrative: Well-appearing 65-year-old male. Vital signs stable afebrile. No acute distress. Pulse ox 96% on room air no signs of hypoxia. H EENT exam pupils round react light. Moist mutes membranes. Neck nontender no JVD. No lymphadenopathy. Lungs clear to auscultation bilaterally. Heart regular rhythm rate about 90 no murmur. Chest wall ribs nontender. Abdomen soft nontender. Moving all 4 extremities. 5-5 drafter detail strength. Dorsi plantarflexion intact. Calves nontender without edema or cords. Neurologically is awake alert. Answering questions following commands. Benign exam. Const Vital Signs: 08/08/25 18:38 08/08/25 19:38 08/08/25 20:20 Temperature 98.6 F Temperature Source Oral Pulse Rate 99 Respiratory Rate 16 Respiratory Effort Normal Short of Breath Respiratory Pattern Normal Blood Pressure 173/104 H Blood Pressure Mean 127 Pulse Ox 96 98 Oxygen Delivery Method Room Air Room Air 08/08/25 20:37 08/08/25 22:00 Temperature Temperature Source Pulse Rate 94 94 Respiratory Rate 13 Respiratory Effort Respiratory Pattern Blood Pressure 146/89 H 159/72 H Blood Pressure Mean 108 101 Pulse Ox 94 Oxygen Delivery Method MDM MDM MDM Narrative Medical decision making narrative: 65-year-old male atypical chest pain plus other somatic complaints. Exam benign. Cardiac workup. Repeat exam patient is doing well at 11:03 PM. Workup negative. 2-hour troponin is 8. I think his shoulder pain is arthritic. He can have outpatient follow-up. He was given 1 [place] here for pain. He can use Tylenol and Motrin at home. History & Record Review Discussion w/independent historian: Patient and Family Additional record(s) reviewed:: Prior outpatient record, Prior ED visit and Prior labs Lab Data Attestation: I reviewed the patient's lab results. Lab results narrative: CBC shows a white count of 14.8. H&H 14 and 41. Platelets 258. Electrolytes show a gap of 19. BUN and creatinine of 14 and 0.6. Glucose 176. Troponin of 9. 2-hour troponin is 8. EKG and chest x-ray are unremarkable. Labs: Laboratory Results - last 24 hr 08/08/25 08/08/25 20:20 22:22 WBC 14.8 H RBC 4.67 Hgb 14.2 Hct 41.1 MCV 88.0 MCH 30.4 MCHC 34.5 RDW Std Deviation 38.3 RDW Coeff of Noemi 12.0 Plt Count 258 MPV 10.6 Immature Gran % (Auto) 0.500 Neut % (Auto) 78.4 H Lymph % (Auto) 12.5 L [place] % (Auto) 7.2 Eos % (Auto) 0.9 Baso % (Auto) 0.5 Absolute Neuts (auto) 11.6 H Absolute Lymphs (auto) 1.84 Nucleated RBC % 0 Sodium 138 Potassium 3.7 Chloride 100 Carbon Dioxide 18.4 L Anion Gap 19 H BUN 14 Creatinine 0.65 L Est GFR (MDRD) Non-Af 106 BUN/Creatinine Ratio 22.2 H Glucose 176 H Calcium 9.3 Troponin T High Sens 9 Troponin T Hi Sens 2 Hr 8 Radiography Chest X-Ray - ED: 2 View, Read by ED Physician, Read by Radiologist, Normal, Heart, Lungs, Mediastinum, Bony Structures, No Acute Disease and Chronic Changes Diagnostic Testing: Clinical Impression(s) from Imaging Studies Chest X-Ray 08/08/25 20:30 IMPRESSION: NO ACUTE FINDINGS. Reading Location: [address] Chest x-ray, 2 views, AP and lateral, interpreted myself and radiology shows normal cardiac silhouette and lung friedman. Chronic changes no acute process. Rhythm Strip Rhythm Strip: Sinus Rhythm Rate: 97 Ectopy: None EKG Initial EKG: Attestation: I personally reviewed and interpreted this EKG as follows: Interpretation: Sinus Rhythm and No Acute Injury Pattern Comments: Normal sinus rhythm rate 97 no acute signs of KS or ischemia. No dysrhythmia. Discharge Plan Triage Chief Complaint: General Illness ED Provider: Sunil Peterson Dx/Rx/DC Orders Clinical Impression: Chest pain, Diabetes, HTN (hypertension), Acute shoulder pain Instructions: ED Chest Pain, Uncertain Cause, ED Osteoarthritis Prescriptions: No Action lisinopril 20 mg tablet 20 mg PO DAILY metformin 1,000 mg tablet 1,000 mg PO BID lovastatin 20 mg tablet 20 mg PO DAILY B-complex with vitamin C [Super B Complex-Vitamin C] Tablet 1 tab PO DAILY ascorbic acid (vitamin C) 250 mg tablet 250 mg PO DAILY cholecalciferol (vitamin D3) 25 mcg (1,000 unit) capsule 25 mcg PO DAILY vitamin E 200 unit capsule 200 unit PO DAILY apple cider vinegar 600 mg capsule 600 mg PO DAILY garlic 500 mg capsule 500 mg PO DAILY atorvastatin 80 mg tablet 80 mg PO QHS Patient Comments: TAKE 1 TABLET BY MOUTH ONCE DAILY pioglitazone 45 mg tablet 45 mg PO DAILY Patient Comments: TAKE 1 TABLET BY MOUTH ONCE DAILY krill oil 500 mg capsule 500 mg PO QDAY Jardiance 10 mg Tablet 10 mg PO DAILY [facility] [Primary Care Provider, None] - As Needed Activity Restrictions/Additional Instructions: All your test, x-rays and EKG look good. Motrin and Tylenol for pain. [facility] Print Language: Hungarian Disposition Disposition: Home, Self Care
[2025-08-08 20:28] LABS: Hematocrit 41.1 % (40-54); Hemoglobin 14.2 g/dL (13.0-16.5); Immature Granulocytes Count 0.080 X10^3/uL (0.0-0.0); Mean Corp Hgb Conc 34.5 g/dL (32-36); Mean Corpuscular Volume 88.0 fL (80-94); Mean Platelet Vol. 10.6 fl (6.2-12.0); NRBC Flagged by Analyzer 0 % (0-5); Platelet Count 258 K/mm3 (150-450); RBC Distribution Width CV 12.0 % (11.6-14.6); RBC Distribution Width SD 38.3 fl (35.1-43.9); Red Blood Count 4.67 M/mm3 (4.6-6.2); White Blood Count 14.8 K/mm3 (4.4-11.0)
--- NOTE | 2025-08-08 20:30 | RAD_ITS ---
PROCEDURE: CHEST PA AND LATERAL 08/08/2025 REASON FOR EXAM: CHEST PAIN TECHNIQUE: Procedure Code: RADCXR Modality: DX Procedure: CHEST PA AND LATERAL FINDINGS: The heart is normal in size. The lungs are clear. No acute osseous abnormalities. RAD/Chest PA and Lateral IMPRESSION: NO ACUTE FINDINGS. Reading Location: [id number]
[2025-08-08 20:37] VITALS: BP 146/89; PULSE 94
[2025-08-08 20:47] LABS: Anion Gap 19 (5-15); BUN 14 mg/dL (4-19); BUN/Creat Ratio 22.2 RATIO (10-20); Calcium,Total 9.3 mg/dL (7.6-11.0); Carbon Dioxide 18.4 mmol/L (21.0-32.0); Chloride 100 mmol/L (98-108); Glucose 176 mg/dL (70-99); Potassium 3.7 mmol/L (3.3-5.1); Troponin T High Sensitivity 9 ng/L (<=22)
[2025-08-08 22:00] VITALS: BP 159/72; PULSE 94; RESP 13; O2SAT 94
[2025-08-08 22:53] LABS: Troponin T High Sens 2 HR 8 ng/L (<=22)
[2025-08-08 23:06] VITALS: BP 170/98; PULSE 94; RESP 22; TEMP 36.6; O2SAT 96
[2025-08-08] MEDS: HYDROcodone Bitartrate/Apap 5/325 Tablet PO (23:26)
== END 2025-08-08 23:33 | disposition home or self-care (01) ==
PROVIDERS: Emergency Provider Emergency Medicine; Visit Provider Emergency Medicine
DX: R07.9 Chest pain, unspecified (principal); E11.9 Type 2 diabetes mellitus without complications; I10 Essential (primary) hypertension; Z87.891 Personal history of nicotine dependence
CPT/HCPCS: 71046; 80048; 84484; 85025; 93005; 99284; A4216